=== PATIENT | male | born 1975 | race Caucasian/White ===

== ENCOUNTER 2017-06-25 12:38 | Observation (INO) | payer OTHER ==
[2017-06-25] MEDS ORDERED: ASPIRIN 81 MG PO STA (13:15)
[2017-06-25] MEDS ORDERED: NITROGLYCERIN OINT 1 INCH/GM PACKET TOPICAL STA (13:15)
--- NOTE | 2017-06-25 13:18 | ED ---
General Adult HPI - General Chief complaint: Chest Pain Stated complaint: Chest Pain Time Seen by Provider: 06/25/17 13:10 Source: patient, RN notes reviewed Mode of arrival: wheelchair Limitations: no limitations - History of Present Illness Initial comments: Patient is a pleasant 42-year-old male presenting to the emergency Department with chest discomfort. Patient had some symptoms around 4:30 this morning that resolved. Symptoms returned a couple hours later. Patient has burning in his chest with radiation to the left arm. Symptoms were more severe earlier however are mild at this time. Patient did have some nausea. No shortness of breath. Patient feels fatigued. Patient has had some similar symptoms previously however has not seen the physician regarding that. - Related Data Home Medications Medication Instructions Recorded Confirmed No Known Home Medications [No 06/25/17 06/25/17 Known Home Medications] Allergies Allergy/AdvReac Type Severity Reaction Status Date / Time No Known Allergies Allergy Verified 06/25/17 13:07 Review of Systems ROS Statement: Those systems with pertinent positive or pertinent negative responses have been documented in the HPI. ROS Other: All systems not noted in ROS Statement are negative. Constitutional: Denies: fever Eyes: Denies: eye pain ENT: Denies: ear pain Respiratory: Denies: cough Cardiovascular: Reports: chest pain Endocrine: Reports: fatigue Gastrointestinal: Reports: nausea Genitourinary: Denies: dysuria Musculoskeletal: Denies: back pain Skin: Denies: rash Neurological: Denies: weakness Past Medical History Past Medical History: Chest Pain / Angina History of Any Multi-Drug Resistant Organisms: None Reported Past Surgical History: Back Surgery, Heart Catheterization Additional Past Surgical History / Comment(s): bernardo knee surgery neck surg Past Psychological History: Anxiety, Depression Smoking Status: Current every day smoker Past Alcohol Use History: Occasional Past Drug Use History: None Reported General Exam Limitations: no limitations General appearance: alert, in no apparent distress, obese Head exam: Present: atraumatic Eye exam: Present: normal appearance, PERRL ENT exam: Present: normal oropharynx Neck exam: Present: normal inspection Respiratory exam: Present: wheezes (Mild expiratory wheeze.). Absent: chest wall tenderness Cardiovascular Exam: Present: regular rate, normal rhythm Expanded Peripheral pulses: 2+: Radial (R), Radial (L), Dorsalis Pedis (R), Dorsalis Pedis (L) GI/Abdominal exam: Present: soft. Absent: tenderness Extremities exam: Present: normal inspection. Absent: pedal edema, calf tenderness Neurological exam: Present: alert Psychiatric exam: Present: normal affect, normal mood Skin exam: Present: normal color Course Vital Signs 06/25/17 06/25/17 06/25/17 12:43 13:17 13:30 Temperature 97.4 F L Pulse Rate 66 70 Pulse Rate [ 57 L Thoracic Surgeon ] Respiratory 16 20 20 Rate Blood Pressure 145/90 116/66 O2 Sat by Pulse 98 98 Oximetry EKG Findings - EKG Comments: EKG Findings:: Sinus bradycardia 58. NV 168. QRS 112. QT or 18. QTC 410. Left axis. Incomplete left bundle-branch block. No acute ST change. Q wave in leads V1 and V2. Medical Decision Making - Medical Decision Making Patient reevaluated and resting comfortably in bed. Patient feels improvement with nitroglycerin. Patient and family updated on results and plan. Case was discussed in detail with Dr. Siddiqi, who will admit for hospital call. - Lab Data Result diagrams: 06/25/17 13:00 06/25/17 13:00 Lab Results 06/25/17 06/25/17 06/25/17 Range/Units 13:00 13:00 13:00 WBC 8.6 (3.8-10.6) k/uL RBC 4.87 (4.30-5.90) m/uL Hgb 14.6 (13.0-17.5) gm/dL Hct 43.9 (39.0-53.0) % MCV 90.3 (80.0-100.0) fL MCH 30.0 (25.0-35.0) pg MCHC 33.2 (31.0-37.0) g/dL RDW 12.3 (11.5-15.5) % Plt Count 170 (150-450) k/uL Neutrophils % 60 % Lymphocytes % 29 % Monocytes % 6 % Eosinophils % 3 % Basophils % 0 % Neutrophils # 5.1 (1.3-7.7) k/uL Lymphocytes # 2.5 (1.0-4.8) k/uL Monocytes # 0.5 (0-1.0) k/uL Eosinophils # 0.3 (0-0.7) k/uL Basophils # 0.0 (0-0.2) k/uL PT (9.0-12.0) sec INR (<1.2) APTT (22.0-30.0) sec Sodium 138 (137-145) mmol/L Potassium 4.0 (3.5-5.1) mmol/L Chloride 105 (98-107) mmol/L Carbon Dioxide 23 (22-30) mmol/L Anion Gap 10 mmol/L BUN 18 (9-20) mg/dL Creatinine 0.90 (0.66-1.25) mg/dL Est GFR (MDRD) Af Amer >60 (>60 ml/min/1.73 sqM) Est GFR (MDRD) Non-Af >60 (>60 ml/min/1.73 sqM) Glucose 126 H (74-99) mg/dL Calcium 9.5 (8.4-10.2) mg/dL Magnesium 1.8 (1.6-2.3) mg/dL Total Bilirubin 1.0 (0.2-1.3) mg/dL AST 33 (17-59) U/L ALT 61 (21-72) U/L Alkaline Phosphatase 61 (38-126) U/L Total Creatine Kinase 469 H (55-170) U/L CK-MB (CK-2) 5.7 H* (0.0-2.4) ng/mL CK-MB (CK-2) Rel Index 1.2 Troponin I <0.012 (0.000-0.034) ng/mL Total Protein 6.4 (6.3-8.2) g/dL Albumin 3.9 (3.5-5.0) g/dL 06/25/17 Range/Units 13:00 WBC (3.8-10.6) k/uL RBC (4.30-5.90) m/uL Hgb (13.0-17.5) gm/dL Hct (39.0-53.0) % MCV (80.0-100.0) fL MCH (25.0-35.0) pg MCHC (31.0-37.0) g/dL RDW (11.5-15.5) % Plt Count (150-450) k/uL Neutrophils % % Lymphocytes % % Monocytes % % Eosinophils % % Basophils % % Neutrophils # (1.3-7.7) k/uL Lymphocytes # (1.0-4.8) k/uL Monocytes # (0-1.0) k/uL Eosinophils # (0-0.7) k/uL Basophils # (0-0.2) k/uL PT 10.0 (9.0-12.0) sec INR 1.0 (<1.2) APTT 23.3 (22.0-30.0) sec Sodium (137-145) mmol/L Potassium (3.5-5.1) mmol/L Chloride (98-107) mmol/L Carbon Dioxide (22-30) mmol/L Anion Gap mmol/L BUN (9-20) mg/dL Creatinine (0.66-1.25) mg/dL Est GFR (MDRD) Af Amer (>60 ml/min/1.73 sqM) Est GFR (MDRD) Non-Af (>60 ml/min/1.73 sqM) Glucose (74-99) mg/dL Calcium (8.4-10.2) mg/dL Magnesium (1.6-2.3) mg/dL Total Bilirubin (0.2-1.3) mg/dL AST (17-59) U/L ALT (21-72) U/L Alkaline Phosphatase (38-126) U/L Total Creatine Kinase (55-170) U/L CK-MB (CK-2) (0.0-2.4) ng/mL CK-MB (CK-2) Rel Index Troponin I (0.000-0.034) ng/mL Total Protein (6.3-8.2) g/dL Albumin (3.5-5.0) g/dL - Radiology Data Radiology results: image reviewed (Chest x-ray shows no acute process.) Disposition Clinical Impression: Unstable angina pectoris Disposition: ADMITTED IP TO THIS [facility] Referrals: None,Stated [Primary Care Provider] - 1-2 days Decision Time: 15:00
[2017-06-25 13:25] LABS: Basophils % (A) 0 %; CH 30.6; Eosinophils # (A) 0.3 k/uL (0-0.7); Eosinophils % (A) 3 %; HCT 43.9 % (39.0-53.0); HDW 2.42; HGB 14.6 gm/dL (13.0-17.5); Luc # (Auto) 0.21; Luc % (Auto) 2; Lymphocytes # (A) 2.5 k/uL (1.0-4.8); Lymphocytes % (A) 29 %; MCHC 33.2 g/dL (31.0-37.0); MCV 90.3 fL (80.0-100.0); Mean Platelet Volume 8.9; Monocytes # (A) 0.5 k/uL (0-1.0); Monocytes % (A) 6 %; Neutrophils # (A) 5.1 k/uL (1.3-7.7); Neutrophils % (A) 60 %; RBC 4.87 m/uL (4.30-5.90); RDW 12.3 % (11.5-15.5); WBC 8.6 k/uL (3.8-10.6); WBC (Perox) 8.59
[2017-06-25 13:35] LABS: ALT 61 U/L (21-72); AST 33 U/L (17-59); Alkaline Phosphatase 61 U/L (38-126); Anion Gap 10 mmol/L; Blood Urea Nitrogen 18 mg/dL (9-20); Calcium 9.5 mg/dL (8.4-10.2); Carbon Dioxide 23 mmol/L (22-30); Chloride 105 mmol/L (98-107); Glucose 126 mg/dL (74-99); Magnesium 1.8 mg/dL (1.6-2.3); Non-African American GFR(MDRD) >60 (>60 ml/min/1.73 sqM); Sodium 138 mmol/L (137-145); Total Protein 6.4 g/dL (6.3-8.2)
[2017-06-25 13:44] LABS: Partial Thromboplastin Time 23.3 sec (22.0-30.0)
--- NOTE | 2017-06-25 13:46 | XR ---
EXAMINATION TYPE: XR chest 2V DATE OF EXAM: 06/25/2017 CLINICAL HISTORY: Chest pain TECHNIQUE: Frontal and lateral views of the chest are obtained. COMPARISON: None FINDINGS: There is no focal air space opacity, pleural effusion, or pneumothorax seen. The cardiac silhouette size is within normal limits. The osseous structures are intact. IMPRESSION: No acute cardiopulmonary process.
[2017-06-25 13:48] LABS: Creatine Kinase 469 U/L (55-170)
[2017-06-25 14:00] LABS: Troponin I <0.012 ng/mL (0.000-0.034)
[2017-06-25 14:15] LABS: Creatine Kinase MB 5.7 ng/mL (0.0-2.4)
[2017-06-25] MEDS ORDERED: HEPARIN SODIUM,PORCINE/D5W PMX 25,000 UNIT in DEXTROSE/WATER 1 500ML.BAG IV SCH (15:00)
[2017-06-25] MEDS ORDERED: NITROGLYCERIN SL TABS 0.4 MG TAB SUBLINGUAL PRN (15:00)
[2017-06-25] MEDS ORDERED: HEPARIN SODIUM,PORCINE 5,000 UNIT/ML 1 ML VIAL IV ONE (15:00)
[2017-06-25] MEDS ORDERED: SODIUM CHLORIDE 0.9% 500 ML IV SCH (15:15)
[2017-06-25 16:01] VITALS: BMI 47.3
--- NOTE | 2017-06-25 17:38 | P.HPIM ---
History of Present Illness H&P Date: 06/25/17 Chief Complaint: left sided chest pain 41 year old male with no significant past medical history. Presented due to sudden onset chest pain of atypical features, patient describes waking up from sleep at 4:30 am with intense left sided chest pain radiating to left arm, intense 10/10 in severity , sharp in nature associated with nausea but no vomiting, no heart racing, and no active sweating, but he was drenched with sweat from sleeping (normal to him). He rested in the bed and pain was resolved on its own. 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 However, his concerned insisted on getting it checked for which he decided to come to the hospital. He reports remote similar events (not exactly sure of details) however he recalls having a left heart cath but did not require any intervention ( but recalls being told that his heart is not beating fully or just slow , he is not sure) He does not take any medications, however he admits to smoking cigarettes. At the ED, he had another episode that was resolved with nitro. otherwise patient labs work and EKG are unremarkable patient is currently chest pain free and very comfortable, patient does not take aspirin at home . He reports being active swimming and biking with no exertional dyspnea or chest pain at bed side, all questions answered. 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, and he named his as surrogate decision maker Review of Systems Constitutional: Patient denies fever, denies chills, Reports night sweating, denies significant weight changes Eyes: Patient denies visual changes, denies eye pain ENT: Patient denies ear pain, denies rhinorrhea, denies sore throat Cardiovascular: Patient denies exertional dyspnea, denies peripheral leg edema, denies orthopnea, denies paroxysmal nocturnal dyspnea Respiratory:Patient denies cough, denies wheezing, denies shortness of breath Gastrointestinal: Patient denies diarrhea, denies constipation, denies nausea , denies vomiting, denies abdominal pain Genitourinary: Patient denies dysuria, denies hematuria, denies changes in urinary habits, denies genital lesions Musculoskeletal: Patient denies muscle pain, denies joint pain Psychiatric: Patient denies changes in mood or memory, denies suicidal ideation, denies anxiety Endocrine: Patient denies heat intolerance, denies cold intolerance, denies excessive thirst, denies polyuria Neurological: Patient denies focal neurologic deficits, denies weakness, denies numbness, denies tingling Hem/Lymphatic: Patient denies bleeding tendency, denies bruising, denies swollen lymph glands Allergic/Immun: Patient denies recent allergic reactions Skin: Patient denies rashes, denies pruritis, denies ulcers Past Medical History Past Medical History: Chest Pain / Angina Additional Past Medical History / Comment(s): diverticulitis, kidney stone History of Any Multi-Drug Resistant Organisms: None Reported Past Surgical History: Heart Catheterization Additional Past Surgical History / Comment(s): bernardo knee surgery, neck surg Past Psychological History: Anxiety, Depression Smoking Status: Current every day smoker Past Alcohol Use History: Occasional Past Drug Use History: Cocaine, Marijuana, Methamphetamine Additional Drug Use History / Comment(s): admits to drugs in the past remotely , but nothing recent - Past Family History family Family Medical History: Cancer, Coronary Artery Disease (CAD), CVA/TIA Medications and Allergies Home Medications and Allergies Comment(s): none Home Medications Medication Instructions Recorded Confirmed Type No Known Home Medications [No 06/25/17 06/25/17 History Known Home Medications] Allergies Allergy/AdvReac Type Severity Reaction Status Date / Time No Known Allergies Allergy Verified 06/25/17 13:07 Physical Exam Vitals: Vital Signs Temp Pulse Pulse Pulse Resp BP BP 06/25/17 15:59 97.6 F 53 L 18 119/62 06/25/17 15:31 98.0 F 56 L 20 118/50 06/25/17 14:30 50 L 18 108/62 06/25/17 13:30 70 20 116/66 06/25/17 13:17 57 L 20 06/25/17 12:43 97.4 F L 66 16 145/90 Pulse Ox 06/25/17 15:59 98 06/25/17 15:31 99 06/25/17 14:30 99 06/25/17 13:30 98 06/25/17 13:17 06/25/17 12:43 98 Intake and Output 06/25/17 06/25/17 06/25/17 06:59 14:59 22:59 Intake Total 100 Balance 100 Intake: Oral 100 Other: Voiding Method Toilet Weight 181.437 kg 186.3 kg Patient Weight 06/26/17 06:59 Weight 186.3 kg Constitutional: No acute distress, conversant, pleasant, obese Eyes: Anicteric sclerae, moist conjunctiva, no lid-lag Pupils equal round reactive to light ENMT: NC/AT Oropharynx clear, no erythema, exudates Neck: Supple, FROM, no masses, or JVD No carotid bruits No thyromegaly Lungs: Clear to auscultation Clear to percussion Normal respiratory effort, no accessory muscle use Cardiovascular: Heart regular in rate and rhythm, No murmurs, gallops, or rubs No peripheral edema Abdominal: Soft Nontender, no guarding, rebound or rigidity Abdomen moving with respiration Normoactive bowel sounds No hepatomegaly, No splenomegaly No palpable mass No abdominal wall hernia noted Skin: Normal temperature, tone, texture, turgor No induration No subcutaneous nodules No rash, lesions No ulcers Extremities: No digital cyanosis No clubbing Pedal pulses intact and symmetrical Radial pulses intact and symmetrical No calf tenderness Psychiatric: Alert and oriented to person, place and time Appropriate affect fair judgment Neuro Muscles Strength 5/5 in all 4 extremities Sensation to light touch grossly present throughout Cranial nerves II-XII grossly intact No focal sensory deficits Lymphatics: no palpable cervical or supraclavicular , or inguinal lymph nodes Results CBC & Chem 7: 06/25/17 13:00 06/25/17 13:00 Labs: Abnormal Lab Results - Last 24 Hours (Table) 06/25/17 06/25/17 Range/Units 13:00 13:00 Glucose 126 H (74-99) mg/dL Total Creatine Kinase 469 H (55-170) U/L CK-MB (CK-2) 5.7 H* (0.0-2.4) ng/mL Thrombosis Risk Factor Assmnt - Choose All That Apply Any of the Below Risk Factors Present?: Yes Each Factor Represents 1 point: Age 41-60 years, Obesity (BMI >25) Other Risk Factors: No Thrombosis Risk Factor Assessment Total Risk Factor Score: 2 Thrombosis Risk Factor Assessment Level: Low Risk Assessment and Plan Assessment: 41 year old male with no significant past medical history, presents due to acute onset chest pain with atypical features, however patient has risk factors of smoking and obesity. Admitted under observation for further workup (1) Chest pain Narrative/Plan: with atypical features, positive risk factors, r/o ACS EKG sinus bradycardia, and incomplete left bundle branch block Troponins wnl nitro PRN for chest pain IV morphine Oxygen PRN cardiology consult patient had negative left heart cath in the past but was told that his heart is beating slow or incomplete emptying he is not sure of results. possible need for a stress test in AM NPO after midnight BB not started due to bradycardia Current Visit: Yes Status: Acute Code(s): R07.9 - CHEST PAIN, UNSPECIFIED SNOMED Code(s): 69365867 (2) Morbid obesity with BMI of 45.0-49.9, adult Narrative/Plan: counseled for life style modification and weight loss Current Visit: Yes Status: Acute Code(s): E66.01 - MORBID (SEVERE) OBESITY DUE TO EXCESS CALORIES; Z68.42 - BODY MASS INDEX (BMI) 45.0-49.9, ADULT SNOMED Code(s): 322028335 (3) DVT prophylaxis Narrative/Plan: heparin sc Current Visit: Yes Status: Acute Code(s): VCF4932 - SNOMED Code(s): 042553266 (4) Tobacco abuse Narrative/Plan: counseled to quit smoking NRT will not be utilized at this point until ACS ruled out Current Visit: Yes Status: Acute Code(s): Z72.0 - TOBACCO USE SNOMED Code( s): 928774287 Plan: Surrogate decision-maker: Patients CODE STATUS:Full DVT prophylaxis: Heparin sc Discussed with: Patient, ER, RN, family Anticipated discharge: [address]: home A total of 45 minutes were spent on the care of this complex patient more than 50% of the time was spent in counseling and care coordination.
[2017-06-25] MEDS ORDERED: MORPHINE SULFATE 10 MG/ML SYRINGE IVP PRN (17:39)
[2017-06-25] MEDS ORDERED: ACETAMINOPHEN TAB 325 MG TAB PO PRN (19:08)
[2017-06-25] MEDS: NITROGLYCERIN OINT 1 INCH/GM PACKET TOPICAL SCH ×2 (19:14→23:43)
[2017-06-25 21:46] LABS: Creatine Kinase 311 U/L (55-170)
[2017-06-25] MEDS: HEPARIN SODIUM,PORCINE 5,000 UNIT/ML 1 ML VIAL IV PRN (21:55)
[2017-06-25 21:57] LABS: Troponin I <0.012 ng/mL (0.000-0.034)
[2017-06-25 22:00] LABS: Creatine Kinase MB 3.9 ng/mL (0.0-2.4)
[2017-06-26 02:29] LABS: Creatine Kinase 259 U/L (55-170)
[2017-06-26 02:41] LABS: Troponin I <0.012 ng/mL (0.000-0.034)
[2017-06-26 02:51] LABS: Creatine Kinase MB 3.7 ng/mL (0.0-2.4)
[2017-06-26] MEDS: NITROGLYCERIN OINT 1 INCH/GM PACKET TOPICAL SCH ×2 (03:37→12:00)
[2017-06-26 05:14] LABS: Anion Gap 8 mmol/L; Blood Urea Nitrogen 16 mg/dL (9-20); Calcium 9.4 mg/dL (8.4-10.2); Carbon Dioxide 26 mmol/L (22-30); Chloride 104 mmol/L (98-107); Cholesterol 166 mg/dL (<200); Glucose 116 mg/dL (74-99); HDL Cholesterol 36 mg/dL (40-60); Non-African American GFR(MDRD) >60 (>60 ml/min/1.73 sqM); Potassium 4.6 mmol/L (3.5-5.1); Sodium 138 mmol/L (137-145)
[2017-06-26] MEDS: HEPARIN SODIUM,PORCINE 5,000 UNIT/ML 1 ML VIAL IV PRN (05:21)
[2017-06-26] MEDS ORDERED: ASPIRIN 325 MG TAB PO SCH (09:00)
[2017-06-26] MEDS ORDERED: DOBUTamine DRIP for NUC MED 500 MG in DEXTROSE/WATER 1 250ML.BAG IV ONE (10:52)
[2017-06-26] MEDS ORDERED: ATROPINE SULFATE 0.1 MG/ML 10ML SYRINGE ONE (11:43)
--- NOTE | 2017-06-26 11:48 | ECHOF ---
Referral Reason:Chest pain MEASUREMENTS -------- HEIGHT: 195.6 cm WEIGHT: 186.0 kg BP: 136/86 RVIDd: 3.3 cm (< 3.3) IVSd: 1.6 cm (0.6 - 1.1) LVIDd: 5.0 cm (3.9 - 5.3) LVPWd: 1.5 cm (0.6 - 1.1) IVSs: 1.9 cm LVIDs: 3.2 cm LVPWs: 1.9 cm LA Diam: 3.3 cm (2.7 - 3.8) LAESV Index (A-L): 11.00 ml/m Ao Diam: 4.1 cm (2.0 - 3.7) AV Cusp: 2.7 cm (1.5 - 2.6) MV EXCURSION: 20.130 mm (> 18.000) MV EF SLOPE: 111 mm/s (70 - 150) EPSS: 0.3 cm MV E Gary: 1.03 m/s MV DecT: 189 ms MV A Gary: 0.52 m/s MV E/A Ratio: 2.00 RAP: 5.00 mmHg RVSP: 23.88 mmHg FINDINGS -------- This was a technically difficult study with suboptimal views. The left ventricular size is normal. There is moderate concentric left ventricular hypertrophy. O verall left ventricular systolic function is low-normal with, an EF between 50 - 55 %. The right ventricle is mildly enlarged. Normal LA size by volume 22+/-6 ml/m2. The right atrium was not well visualized. 1.5mg of Definity was utilized for enhancement of images The aortic valve was not well visualized. The mitral valve is normal. Mild tricuspid regurgitation present. Right ventricular systolic pressure is normal at < 35 mmHg. The pulmonic valve was not well visualized. The aortic root is dilated measuring 4.1cm. IVC Not well visulized. There is no pericardial effusion. CONCLUSIONS -------- 1. This was a technically difficult study with suboptimal views. 2. The left ventricular size is normal. 3. There is moderate concentric left ventricular hypertrophy. 4. Overall left ventricular systolic function is low-normal with, an EF between 50 - 55 %. 5. The right ventricle is mildly enlarged. 6. Normal LA size by volume 22+/-6 ml/m2. 7. The right atrium was not well visualized. 8. 1.5mg of Definity was utilized for enhancement of images 9. The aortic valve was not well visualized. 10. The mitral valve is normal. 11. Mild tricuspid regurgitation present. 12. Right ventricular systolic pressure is normal at < 35 mmHg. 13. The pulmonic valve was not well visualized. 14. The aortic root is dilated measuring 4.1cm. 15. IVC Not well visulized. 16. There is no pericardial effusion. BOND CLERK: Nikkie Hicks RDCS
--- NOTE | 2017-06-26 12:02 | P.CRDCN ---
History of Present Illness Consult date: 06/26/17 History of present illness: This is a 41-year-old male past medical history significant for chronic tobacco use and morbid obesity. He also has significant family history for premature heart disease. He denies CAD and has never undergone coronary artery stenting. He did have a catheterization with Dr. Lares in 2006 which was negative for obstructive disease. We have been asked to see him in consultation for complaints of chest pressure. 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 He was woken up with chest tightness, shortness of breath, nausea and dizziness. He denies palpitations or vomiting. The pain lasted for a couple minutes and subsided on its own. 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 While he was working the nausea and dizziness persisted and he had another episode of mid-sternal/epigastric burning sensation that lasted approximately 10 min. At the time of my exam he is chest pain free. EKG reveals sinus mechanism with incomplete left bundle branch block. Chest xray negative for an acute cardiopulmonary process. Blood pressure 136/86 with heart rate 54. Cardiac enzymes negative x3. Cardiac risk factors include tobacco use, prior history of illicit drug use, family history and morbid obesity. Review of Systems CONSTITUTIONAL: Denies fever. Denies chills. EYES: Denies blurred vision. Denies vision changes. Denies eye pain. EARS, NOSE, MOUTH & THROAT: Denies headache. Denies sore throat. Denies ear pain. CARDIOVASCULAR: Complains of intermittent chest pain, resolved. Denies shortness of breath. Denies orthopnea. Denies PND. Denies palpitations. RESPIRATORY: Denies cough. GASTROINTESTINAL: Denies abdominal pain. Denies diarrhea. Denies constipation. Denies nausea. Denies vomitng. MUSCULOSKELETAL: Denies myalgias. INTEGUMENTARY: Denies pruitis. Denies rash. NEUROLOGIC: Denies numbness. Denies tingling. Denies weakness. PSYCHIATRIC: Denies anxiety. Denies depression. ENDOCRINE: Denies fatigue. Denies weight change. Denies polydipsia. Denies polyurina. GENITOURINARY: Denies burning, hematuria or urgency with micturation. HEMATOLOGIC: Denies history of anemia. Denies bleeding. Past Medical History Past Medical History: Chest Pain / Angina Additional Past Medical History / Comment(s): diverticulitis, kidney stone History of Any Multi-Drug Resistant Organisms: None Reported Past Surgical History: Heart Catheterization Additional Past Surgical History / Comment(s): bernardo knee surgery, neck surg Past Psychological History: Anxiety, Depression Smoking Status: Current every day smoker Past Alcohol Use History: Occasional Past Drug Use History: Cocaine, Marijuana, Methamphetamine Additional Drug Use History / Comment(s): admits to drugs in the past remotely , but nothing recent - Past Family History family Family Medical History: Cancer, Coronary Artery Disease (CAD), CVA/TIA Medications and Allergies Home Medications Medication Instructions Recorded Confirmed Type No Known Home Medications [No 06/25/17 06/25/17 History Known Home Medications] Allergies Allergy/AdvReac Type Severity Reaction Status Date / Time No Known Allergies Allergy Verified 06/25/17 13:07 Physical Exam Vitals: Vital Signs Temp Pulse Pulse Pulse Pulse Resp BP 06/26/17 07:27 97.4 F L 54 L 20 06/26/17 04:00 98.1 F 52 L 18 06/26/17 03:35 18 06/25/17 23:44 98.2 F 55 L 18 06/25/17 23:41 18 06/25/17 20:00 98 F 63 18 06/25/17 19:26 18 06/25/17 15:59 97.6 F 53 L 18 06/25/17 15:31 98.0 F 56 L 20 118/50 06/25/17 14:30 50 L 18 108/62 06/25/17 13:30 70 20 116/66 06/25/17 13:17 57 L 20 06/25/17 12:43 97.4 F L 66 16 145/90 BP Pulse Ox 06/26/17 07:27 136/86 97 06/26/17 04:00 133/67 98 06/26/17 03:35 06/25/17 23:44 126/70 94 L 06/25/17 23:41 06/25/17 20:00 123/74 94 L 06/25/17 19:26 06/25/17 15:59 119/62 98 06/25/17 15:31 99 06/25/17 14:30 99 06/25/17 13:30 98 06/25/17 13:17 06/25/17 12:43 98 Intake and Output 06/25/17 06/26/17 06/26/17 22:59 06:59 14:59 Intake Total 587.936 675.939 Output Total 100 Balance 587.936 675.939 -100 Intake: Intake, IV Titration 127.936 225.939 Amount Heparin Sodium,Porcine/ 127.936 225.939 D5w Pmx 25,000 unit In Dextrose/Water 1 500ml. bag @ 5.51 UNITS/KG/HR 19 .99 mls/hr IV .Q24H [facility] Rx#:[id number] Oral 460 450 Output: Urine 100 Other: Voiding Method Toilet Toilet Toilet # Voids 2 Weight 186.3 kg GENERAL: This is a 41-year-old male in no apparent distress at the time of my examination. Morbidly obese. HEENT: Head is atraumatic, normocephalic. Pupils are equal, round. Sclerae anicteric. Conjunctivae are clear. Mucous membranes of the mouth are moist. Neck is supple. There is no jugular venous distention. No carotid bruit is heard. LUNGS: Clear to auscultation no wheezes, rales or rhonchi. No chest wall tenderness is noted on palpation or with deep breathing. HEART: Regular rate and rhythm without murmurs, rubs or gallops. S1 and S2 heard. ABDOMEN: Soft, nontender. Bowel sounds are heard. No organomegaly noted. EXTREMITIES: 2+ peripheral pulses with no evidence of peripheral edema and no calf tenderness noted. NEUROLOGIC: Patient is awake, alert and oriented x3. Results 06/26/17 04:08 06/26/17 04:08 Cardiac Enzymes 06/25/17 06/25/17 06/25/17 Range/Units 13:00 13:00 20:44 AST 33 (17-59) U/L CK-MB (CK-2) 5.7 H* 3.9 H* (0.0-2.4) ng/mL Troponin I <0.012 <0.012 (0.000-0.034) ng/mL 06/26/17 Range/Units 01:33 AST (17-59) U/L CK-MB (CK-2) 3.7 H* (0.0-2.4) ng/mL Troponin I <0.012 (0.000-0.034) ng/mL Coagulation 06/25/17 06/25/17 06/26/17 Range/Units 13:00 20:44 04:08 PT 10.0 (9.0-12.0) sec APTT 23.3 24.0 25.7 (22.0-30.0) sec Lipids 06/26/17 Range/Units 04:08 Triglycerides 174 H (<150) mg/dL Cholesterol 166 (<200) mg/dL HDL Cholesterol 36 L (40-60) mg/dL CBC 06/25/17 06/26/17 Range/Units 13:00 04:08 WBC 8.6 (3.8-10.6) k/uL RBC 4.87 (4.30-5.90) m/uL Hgb 14.6 (13.0-17.5) gm/dL Hct 43.9 (39.0-53.0) % Plt Count 170 172 (150-450) k/uL Comprehensive Metabolic Panel 06/25/17 06/26/17 Range/Units 13:00 04:08 Sodium 138 138 (137-145) mmol/L Potassium 4.0 4.6 (3.5-5.1) mmol/L Chloride 105 104 (98-107) mmol/L Carbon Dioxide 23 26 (22-30) mmol/L BUN 18 16 (9-20) mg/dL Creatinine 0.90 1.00 (0.66-1.25) mg/dL Glucose 126 H 116 H (74-99) mg/dL Calcium 9.5 9.4 (8.4-10.2) mg/dL AST 33 (17-59) U/L ALT 61 (21-72) U/L Alkaline Phosphatase 61 (38-126) U/L Total Protein 6.4 (6.3-8.2) g/dL Albumin 3.9 (3.5-5.0) g/dL Current Medications Generic Name Dose Route Start Last Admin Trade Name Freq PRN Reason Stop Dose Admin Acetaminophen 650 mg 06/25/17 19:08 06/25/17 19:23 Tylenol Tab PO 650 mg Q4HR PRN Administration Fever and/ or Pain Aspirin 325 mg 06/26/17 09:00 Aspirin PO DAILY BRUCE Heparin Sodium (Porcine) 0 unit 06/25/17 15:00 06/26/17 05:21 Heparin IV 4,000 unit Q6HR PRN Administration Low PTT Protocol Heparin Sodium/Dextrose 25,000 500 mls @ 19.99 mls/hr 06/25/17 15:00 05:11 unit/ IV Solution IV 11.51 units/kg/hr .Q24H BRUCE 41.76 mls/hr Protocol Titration 5.51 UNITS/KG/HR Sodium Chloride 500 mls @ 20 mls/hr 06/25/17 15:15 06/25/17 15:27 Saline 0.9% IV 20 mls/hr .Q24H BRUCE Administration Morphine Sulfate 4 mg 06/25/17 17:39 Morphine Sulfate (Inj) IVP Q4HR PRN Pain Nitroglycerin 1 inch 06/25/17 18:00 06/26/17 03:37 Nitro-Bid Oint TOPICAL Not Given Q6HR [facility] Nitroglycerin 0.4 mg 06/25/17 15:00 Nitrostat SUBLINGUAL Q5M PRN Chest Pain Intake and Output 06/25/17 06/26/17 06/26/17 22:59 06:59 14:59 Intake Total 587.936 675.939 Output Total 100 Balance 587.936 675.939 -100 Intake: Intake, IV Titration 127.936 225.939 Amount Heparin Sodium,Porcine/ 127.936 225.939 D5w Pmx 25,000 unit In Dextrose/Water 1 500ml. bag @ 5.51 UNITS/KG/HR 19 .99 mls/hr IV .Q24H [facility] Rx#:[id number] Oral 460 450 Output: Urine 100 Other: Voiding Method Toilet Toilet Toilet # Voids 2 Weight 186.3 kg 06/26/17 04:08 06/26/17 04:08 Assessment and Plan Assessment: ASSESSMENT 1. Chest pain, atypical 2. Chronic tobacco abuse 3. History of illicit drug use, cocaine and methamphetamine 4. Morbid obesity PLAN Obtain 2-D echocardiogram and Doppler study to assess cardiac structure and function. Perform dobutamine stress echocardiogram to rule out ischemia. Lifestyle modifications discussed at length to include weight loss, increased activity and smoking cessation. Patient states he has not used illicit drugs in some time. If above diagnostic testing is negative he can be discharged home and follow upwith Dr. Darling in 2-3 weeks. Nurse Practitioner note has been reviewed, I agree with a documented findings and plan of care. Patient was seen and examined.
[2017-06-26 12:25] VITALS: TEMP 97.5
--- NOTE | 2017-06-26 12:59 | ECHOS ---
STRESS ECHOCARDIOGRAM INDICATIONS: CP MEDICATIONS:: BASELINE HEART RATE: 56 BASELINE BLOOD PRESSURE: 124/65 MAXIMUM HEART RATE: 137 MAXIMUM BLOOD PRESSURE: 216/38 85% MPHR: 151 100% MPHR: 178 METS: MAXIMUM STAGE REACHED: 5 TOTAL EXERCISE TIME: 12:30 CLINICAL INFORMATION: Dobutamine Cardiolite study was performed. Peak heart rate of 137 was achieved, which is equivalent to 80% of age predicted heart rate. Maximum blood pressure of 216/38 mmHg was noted. The resting EKG shows normal sinus rhythm with sinus bradycardia and intraventricular conduction delay. No ST-segment depression suggestive of ischemia was noted. The baseline echocardiographic images reveals normal left ventricular chamber size with normal left ventricular systolic function. At the peak dose of dobutamine infusion normal increase in the wall thickness and contractility is noted. FINAL IMPRESSION: 1. This dobutamine stress echocardiographic study is negative for stress-induced ischemia. No dysrhythmias are noted. 2. EKG portion of the stress test is not suggestive of ischemia. MMODL / IJN: [id number] /
[2017-06-26 15:41] VITALS: BP 122/82; PULSE 60; RESP 20
--- NOTE | 2017-06-26 15:48 | P.DS ---
Providers Date of admission: 06/25/17 15:00 Expected date of discharge: 06/26/17 Attending physician: Santhosh Siddiqi MD Consults: 06/25/17 15:00 Consult Physician Urgent Consulting Provider: Veto Monroy Consult Reason/Comments: ua Do you want consulting provider notified?: Yes Primary care physician: Stated None - Discharge Diagnosis(es) (1) Chest pain Current Visit: Yes Status: Resolved (2) Morbid obesity with BMI of 45.0-49.9, adult Current Visit: Yes Status: Acute (3) DVT prophylaxis Current Visit: Yes Status: Acute (4) Tobacco abuse Current Visit: Yes Status: Acute Hospital Course: 41-year-old male with no significant past medical history. Presented due to sudden onset chest pain with atypical features however it was recurrent for which she got concerned and decided to come to the hospital. Patient was admitted under observation a stress test performed and cardiology evaluated the patient. Stress test came back negative cardiology cleared the patient for discharge. Left-sided chest pain has resolved this most likely due to overexertion resulting in musculoskeletal type of pain Patient reports having left heart cath in the past when he had similar chest pain related to drug abuse years ago. No intervention was required at that time Patient seen and examined on day of discharge Patient reports no further episodes of chest pain overnight except for one event while having the stress test done. Currently feels comfortable and eager to go home. Constitutional: vital signs stable, Not in acute distress, pleasant, conversant Lungs: Clear to auscultation bilaterally, clear to percussion, normal respiratory effort Cardiovascular: Regular rate and rhythm, no murmurs, no gallops, no rubs, no peripheral edema Gastrointestinal: Soft, no tenderness to palpation, bowel sounds positive, no abdominal wall hernias Extremities peripheral pulses palpable and equal over bilateral radial arteries and dorsalis pedis artery, no calf muscle tenderness Psych: Alert, oriented to place, person and time Patient will be discharged home Counseled for weight loss and lifestyle modification No new medications upon discharge Patient discharged in stable condition Counseled to quit smoking Pertinent Studies: Dobutamine Stress test which resulted to be negative for any stress-induced ischemia Patient Condition at Discharge: Stable Plan - Discharge Summary Discharge Rx Participant: No New Discharge Prescriptions: Continue No Known Home Medications [No Known Home Medications] Discharge Medication List No Known Home Medications [No Known Home Medications] 06/25/17 [History] Follow up Appointment(s)/Referral(s): None,Stated [Primary Care Provider] - 1-2 days Black Darling MD [STAFF PHYSICIAN] - 2 Weeks Patient Instructions/Handouts: Chest Pain (GEN) Activity/Diet/Wound Care/Special Instructions: diet as tolerated, life style modification and weight loss Discharge Disposition: HOME SELF-CARE
== END 2017-06-26 16:19 | disposition home or self-care (01) ==
LOC: EC 12:38 → 3OBS 15:00
PROVIDERS: ADMIT Internal Medicine; ATTEND Internal Medicine
DX: R07.89 Other chest pain (principal); R11.0 Nausea; R42 Dizziness and giddiness; R53.83 Other fatigue; Z68.42 Body mass index [BMI] 45.0-49.9, adult; E66.01 Morbid (severe) obesity due to excess calories; F17.210 Nicotine dependence, cigarettes, uncomplicated; F41.9 Anxiety disorder, unspecified; F32.9 Major depressive disorder, single episode, unspecified; Z82.49 Family history of ischemic heart disease and other diseases of the circulatory system
CPT/HCPCS: 99285; 96376 ×2; 96365; 96366 ×2; 36415; 93005; 93017; 80061; 80053; 80048; 82550 ×2; 82553 ×2; 83735; 84484 ×2; 85025; 85049; 85610; 85730 ×2; 71020; G0378 ×2; C8928; C8929; J1250; J1644 ×3; J0461; Q9957; 93306; 93350

== ENCOUNTER 2017-08-02 17:40 | Emergency (ER) | payer OTHER ==
[2017-08-02] MEDS ORDERED: KETOROLAC 60 MG/2 ML VIAL IVP STA (18:06)
--- NOTE | 2017-08-02 18:09 | ED ---
General Adult HPI - General Chief complaint: Chest Pain Stated complaint: Chest pain Time Seen by Provider: 08/02/17 17:40 Source: patient, RN notes reviewed Mode of arrival: wheelchair Limitations: no limitations - History of Present Illness Initial comments: This is a 41-year-old male who presents emergency department with past mental history significant for smoking. Patient states had a new job for the last 2 weeks and is experiencing some pain in the center of his chest and both shoulders. 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 Patient states he was at work today about an hour when he started having chest pain and it was worse with movement deep breathing or coughing. Patient states pressing on the anterior chest at the sternum increases his pain as well. Patient denies any nausea or vomiting patient denies any abdominal pain. Patient denies any diaphoresis. Patient denies diabetes hypertension or high cholesterol. Patient states she recently had a stress test that was normal. Patient states that he rests in bed without taking any deep breathing or moving he has no chest pain. - Related Data Home Medications Medication Instructions Recorded Confirmed Ibuprofen [Motrin] 800 mg PO TID PRN 08/02/17 08/02/17 Allergies Allergy/AdvReac Type Severity Reaction Status Date / Time No Known Allergies Allergy Verified 08/02/17 18:26 Review of Systems ROS Statement: Those systems with pertinent positive or pertinent negative responses have been documented in the HPI. ROS Other: All systems not noted in ROS Statement are negative. Past Medical History Past Medical History: Chest Pain / Angina Additional Past Medical History / Comment(s): diverticulitis, kidney stone History of Any Multi-Drug Resistant Organisms: None Reported Past Surgical History: Heart Catheterization Additional Past Surgical History / Comment(s): bernardo knee surgery, neck surg Past Psychological History: Anxiety, Depression Smoking Status: Current every day smoker Past Alcohol Use History: Rare Past Drug Use History: None Reported - Past Family History family Family Medical History: Cancer, Coronary Artery Disease (CAD), CVA/TIA General Exam - General Exam Comments Initial Comments: GENERAL: Patient is well-developed and well-nourished. Patient is nontoxic and well- hydrated and is in mild distress. ENT: Neck is soft and supple. No significant lymphadenopathy is noted. Oropharynx is clear. Moist mucous membranes. Neck has full range of motion without eliciting any pain. EYES: The sclera were anicteric and conjunctiva were pink and moist. Extraocular movements were intact and pupils were equal round and reactive to light. Eyelids were unremarkable. PULMONARY: Unlabored respirations. Good breath sounds bilaterally. No audible rales rhonchi or wheezing was noted. CARDIOVASCULAR: There is a regular rate and rhythm without any murmurs gallops or rubs. Patient has tenderness to palpation of the distal sternum ABDOMEN: Soft and nontender with normal bowel sounds. No palpable organomegaly was noted. There is no palpable pulsatile mass. SKIN: Skin is clear with no lesions or rashes and otherwise unremarkable. NEUROLOGIC: Patient is alert and oriented x3. Cranial nerves II through XII are grossly intact. Motor and sensory are also intact. Normal speech, volume and content. Symmetrical smile. MUSCULOSKELETAL: Normal extremities with adequate strength and full range of motion. No lower extremity swelling or edema. No calf tenderness. LYMPHATICS: No significant lymphadenopathy is noted PSYCHIATRIC: Normal psychiatric evaluation. 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 Patient's EKG shows no ST segment elevation or depression. Chest x-ray shows no acute abnormality. I will begin spoke with the patient he stated that the Toradol seemed to help his pain can simply. However on palpation he was [employer]. Patient did not want to stay in the hospital he stated he would follow up with cardiology. - Lab Data Result diagrams: 08/02/17 18:17 08/02/17 18:17 Lab Results 08/02/17 08/02/17 08/02/17 Range/Units 18:17 18:17 18:17 WBC 6.2 (3.8-10.6) k/uL RBC 4.51 (4.30-5.90) m/uL Hgb 13.5 (13.0-17.5) gm/dL Hct 39.8 (39.0-53.0) % MCV 88.1 (80.0-100.0) fL MCH 30.0 (25.0-35.0) pg MCHC 34.0 (31.0-37.0) g/dL RDW 13.9 (11.5-15.5) % Plt Count 147 L (150-450) k/uL Neutrophils % 51 % Lymphocytes % 34 % Monocytes % 8 % Eosinophils % 2 % Basophils % 1 % Neutrophils # 3.1 (1.3-7.7) k/uL Lymphocytes # 2.1 (1.0-4.8) k/uL Monocytes # 0.5 (0-1.0) k/uL Eosinophils # 0.1 (0-0.7) k/uL Basophils # 0.1 (0-0.2) k/uL PT (9.0-12.0) sec INR (<1.2) APTT (22.0-30.0) sec Sodium 140 (137-145) mmol/L Potassium 4.4 (3.5-5.1) mmol/L Chloride 107 (98-107) mmol/L Carbon Dioxide 24 (22-30) mmol/L Anion Gap 9 mmol/L BUN 17 (9-20) mg/dL Creatinine 1.00 (0.66-1.25) mg/dL Est GFR (MDRD) Af Amer >60 (>60 ml/min/1.73 sqM) Est GFR (MDRD) Non-Af >60 (>60 ml/min/1.73 sqM) Glucose 92 (74-99) mg/dL Calcium 9.4 (8.4-10.2) mg/dL Magnesium 1.9 (1.6-2.3) mg/dL Total Bilirubin 0.7 (0.2-1.3) mg/dL AST 37 (17-59) U/L ALT 66 (21-72) U/L Alkaline Phosphatase 68 (38-126) U/L Total Creatine Kinase 513 H (55-170) U/L CK-MB (CK-2) 6.5 H* (0.0-2.4) ng/mL CK-MB (CK-2) Rel Index 1.3 Troponin I <0.012 (0.000-0.034) ng/mL Total Protein 6.8 (6.3-8.2) g/dL Albumin 4.1 (3.5-5.0) g/dL 08/02/17 Range/Units 18:17 WBC (3.8-10.6) k/uL RBC (4.30-5.90) m/uL Hgb (13.0-17.5) gm/dL Hct (39.0-53.0) % MCV (80.0-100.0) fL MCH (25.0-35.0) pg MCHC (31.0-37.0) g/dL RDW (11.5-15.5) % Plt Count (150-450) k/uL Neutrophils % % Lymphocytes % % Monocytes % % Eosinophils % % Basophils % % Neutrophils # (1.3-7.7) k/uL Lymphocytes # (1.0-4.8) k/uL Monocytes # (0-1.0) k/uL Eosinophils # (0-0.7) k/uL Basophils # (0-0.2) k/uL PT 10.0 (9.0-12.0) sec INR 1.0 (<1.2) APTT 25.0 (22.0-30.0) sec Sodium (137-145) mmol/L Potassium (3.5-5.1) mmol/L Chloride (98-107) mmol/L Carbon Dioxide (22-30) mmol/L Anion Gap mmol/L BUN (9-20) mg/dL Creatinine (0.66-1.25) mg/dL Est GFR (MDRD) Af Amer (>60 ml/min/1.73 sqM) Est GFR (MDRD) Non-Af (>60 ml/min/1.73 sqM) Glucose (74-99) mg/dL Calcium (8.4-10.2) mg/dL Magnesium (1.6-2.3) mg/dL Total Bilirubin (0.2-1.3) mg/dL AST (17-59) U/L ALT (21-72) U/L Alkaline Phosphatase (38-126) U/L Total Creatine Kinase (55-170) U/L CK-MB (CK-2) (0.0-2.4) ng/mL CK-MB (CK-2) Rel Index Troponin I (0.000-0.034) ng/mL Total Protein (6.3-8.2) g/dL Albumin (3.5-5.0) g/dL Disposition Clinical Impression: Musculoskeletal chest pain Disposition: HOME SELF-CARE Condition: Good Instructions: Chest Pain (ED) Referrals: None,Stated [Primary Care Provider] - 1-2 days Time of Disposition: 19:58
[2017-08-02 18:34] LABS: Basophils # (A) 0.1 k/uL (0-0.2); Basophils % (A) 1 %; CH 29.5; CHCM 33.7; Eosinophils # (A) 0.1 k/uL (0-0.7); Eosinophils % (A) 2 %; HCT 39.8 % (39.0-53.0); HDW 2.61; HGB 13.5 gm/dL (13.0-17.5); Luc # (Auto) 0.21; Luc % (Auto) 3; Lymphocytes # (A) 2.1 k/uL (1.0-4.8); Lymphocytes % (A) 34 %; MCV 88.1 fL (80.0-100.0); Mean Platelet Volume 9.5; Monocytes # (A) 0.5 k/uL (0-1.0); Monocytes % (A) 8 %; Neutrophils # (A) 3.1 k/uL (1.3-7.7); Neutrophils % (A) 51 %; RBC 4.51 m/uL (4.30-5.90); RDW 13.9 % (11.5-15.5); WBC 6.2 k/uL (3.8-10.6); WBC (Perox) 6.08
[2017-08-02 18:38] LABS: ALT 66 U/L (21-72); AST 37 U/L (17-59); Alkaline Phosphatase 68 U/L (38-126); Anion Gap 9 mmol/L; Blood Urea Nitrogen 17 mg/dL (9-20); Calcium 9.4 mg/dL (8.4-10.2); Carbon Dioxide 24 mmol/L (22-30); Chloride 107 mmol/L (98-107); Glucose 92 mg/dL (74-99); Magnesium 1.9 mg/dL (1.6-2.3); Non-African American GFR(MDRD) >60 (>60 ml/min/1.73 sqM); Potassium 4.4 mmol/L (3.5-5.1); Sodium 140 mmol/L (137-145); Total Bilirubin 0.7 mg/dL (0.2-1.3); Total Protein 6.8 g/dL (6.3-8.2)
[2017-08-02 18:47] LABS: Creatine Kinase 513 U/L (55-170)
--- NOTE | 2017-08-02 18:57 | XR ---
EXAMINATION: XR chest 3V DATE AND TIME: 08/02/2017 6:46 PM ORDERING PROVIDER: Ephraim Canela MD CLINICAL INDICATION: Chest Pain TECHNIQUE: 2 PA views and a lateral view COMPARISON: 06/25/2017 DESCRIPTION: The lungs are clear. The pleural spaces are negative. The cardiac silhouette is not enlarged. The mediastinal and pleural silhouettes are unremarkable. The skeletal structures are intact without focal findings. The soft tissues are unremarkable. IMPRESSION: NO ACUTE PROCESS.
[2017-08-02 18:59] LABS: Troponin I <0.012 ng/mL (0.000-0.034)
[2017-08-02 19:03] LABS: Creatine Kinase MB 6.5 ng/mL (0.0-2.4)
[2017-08-02 20:18] VITALS: BP 135/68; PULSE 87; RESP 20; TEMP 97.5
== END 2017-08-02 20:17 | disposition home or self-care (01) ==
LOC: EC 17:40
DX: R07.89 Other chest pain (principal); F17.200 Nicotine dependence, unspecified, uncomplicated; Z95.818 Presence of other cardiac implants and grafts
CPT/HCPCS: 36415; 93005; 80053; 82550; 82553; 83735; 84484; 85025; 85610; 85730; 71020; 99285; 96374; J1885

== ENCOUNTER 2017-09-30 01:47 | Emergency (ER) | payer OTHER ==
[2017-09-30 02:02] VITALS: BP 144/84; PULSE 78; RESP 18; TEMP 98.3
--- NOTE | 2017-09-30 02:41 | ED ---
General Adult HPI - General Chief complaint: Skin/Abscess/Foreign Body Stated complaint: Wound on abdomen Time Seen by Provider: 09/30/17 02:15 Source: patient, RN notes reviewed Mode of arrival: ambulatory Limitations: no limitations - History of Present Illness Initial comments: 41-year-old male presents to the emergency department with a chief complaint of abscess to left abdomen. Patient states that he drained this and he has been having good drainage from the area. He was concerned due to the fact that the drainage was causing some redness around the area she thought that he should be he denies any fever or chills. He history of MRSA. He denies any cough cold. Patient was concerned due to his continued area of redness to the thought that he should be seen.Patient denies any recent fever, chills, shortness of breath, chest pain, back pain, abdominal pain, nausea vomiting, numbness or tingling, dysuria or hematuria, constipation or diarrhea, headaches or visual changes, or any other current symptoms. - Related Data Home Medications Medication Instructions Recorded Confirmed Ibuprofen [Motrin] 800 mg PO TID PRN 08/02/17 08/02/17 Previous Rx's Medication Instructions Recorded Sulfamethox-Tmp 800-160Mg [Bactrim 2 each PO Q12HR #56 tab 09/30/17 DS 800-160 mg] Allergies Allergy/AdvReac Type Severity Reaction Status Date / Time No Known Allergies Allergy Verified 09/30/17 02:02 Review of Systems ROS Statement: Those systems with pertinent positive or pertinent negative responses have been documented in the HPI. ROS Other: All systems not noted in ROS Statement are negative. Past Medical History Past Medical History: Chest Pain / Angina Additional Past Medical History / Comment(s): diverticulitis, kidney stone History of Any Multi-Drug Resistant Organisms: None Reported Past Surgical History: Heart Catheterization Additional Past Surgical History / Comment(s): bernardo knee surgery, neck surg Past Psychological History: Anxiety, Depression Smoking Status: Current every day smoker Past Alcohol Use History: Occasional Past Drug Use History: None Reported - Past Family History family Family Medical History: Cancer, Coronary Artery Disease (CAD), CVA/TIA General Exam Limitations: no limitations General appearance: alert, in no apparent distress ENT exam: Present: normal exam, mucous membranes moist Neck exam: Present: normal inspection. Absent: tenderness, meningismus, lymphadenopathy Respiratory exam: Present: normal lung sounds bilaterally. Absent: respiratory distress, wheezes, rales, rhonchi, stridor Cardiovascular Exam: Present: regular rate, normal rhythm, normal heart sounds. Absent: systolic murmur, diastolic murmur, rubs, gallop, clicks GI/Abdominal exam: Present: soft, normal bowel sounds. Absent: distended, tenderness, guarding, rebound, rigid Back exam: Present: normal inspection Neurological exam: Present: alert, oriented X3 Psychiatric exam: Present: normal affect, normal mood Skin exam: Present: warm, dry, intact, other (Abscess to left lower quadrant of the abdomen with active drainage and gaping open associated dermatitis below the area most likely due to the purulent drainage) Course Vital Signs 09/30/17 01:59 Temperature 98.3 F Pulse Rate 78 Respiratory 18 Rate Blood Pressure 144/84 O2 Sat by Pulse 97 Oximetry Medical Decision Making - Medical Decision Making 41-year-old male presents for abscess to left lower quadrant of the abdomen. At this time we will start him on Bactrim. We did discuss follow-up with his doctor we did discuss long term. We discussed return parameters all questions. Patient stated that he understood and he is in agreement this plan. All questions have been answered. He will be discharged. Disposition Clinical Impression: Abdominal wall abscess, Dry skin dermatitis Disposition: HOME SELF-CARE Condition: Stable Instructions: Abscess (ED) Additional Instructions: Please use medication as discussed. Please follow up with family doctor if symptoms have not improved over the next two days. Please return to the emergency room if your symptoms increase or worsen or for any other concerns. Prescriptions: Sulfamethox-Tmp 800-160Mg [Bactrim DS 800-160 mg] 2 each PO Q12HR #56 tab Referrals: Arik Weinberg MD [STAFF PHYSICIAN] - 1-2 days Time of Disposition: 02:41
== END 2017-09-30 02:50 | disposition home or self-care (01) ==
LOC: EC 01:47
DX: L02.211 Cutaneous abscess of abdominal wall (principal); L30.9 Dermatitis, unspecified; F17.200 Nicotine dependence, unspecified, uncomplicated; Z86.14 Personal history of Methicillin resistant Staphylococcus aureus infection
CPT/HCPCS: 99283

== ENCOUNTER 2017-10-07 13:11 | Emergency (ER) | payer OTHER ==
[2017-10-07 13:43] VITALS: RESP 18
[2017-10-07] MEDS ORDERED: RX INFO: IV CONTRAST WAS GIVEN 1 EACH MISC MISCELLANE PRN (14:33)
[2017-10-07 14:45] LABS: Basophils % (A) 0 %; Eosinophils # (A) 0.3 k/uL (0-0.7); Eosinophils % (A) 4 %; HCT 45.4 % (39.0-53.0); HGB 14.7 gm/dL (13.0-17.5); Lymphocytes # (A) 2.1 k/uL (1.0-4.8); Lymphocytes % (A) 29 %; MCH 29.3 pg (25.0-35.0); MCHC 32.4 g/dL (31.0-37.0); MCV 90.4 fL (80.0-100.0); Mean Platelet Volume 8.8; Monocytes # (A) 0.5 k/uL (0-1.0); Monocytes % (A) 8 %; Neutrophils % (A) 57 %; Platelet Count 171 k/uL (150-450); RBC 5.02 m/uL (4.30-5.90); RDW 12.3 % (11.5-15.5); WBC 7.1 k/uL (3.8-10.6)
--- NOTE | 2017-10-07 14:47 | ED ---
General Adult HPI - General Chief complaint: Abdominal Pain Stated complaint: lower abdominal pain/body cramps Time Seen by Provider: 10/07/17 14:25 Source: patient, RN notes reviewed Mode of arrival: ambulatory Limitations: no limitations - History of Present Illness Initial comments: 42-year-old male presents emergency Department chief complaint of abdominal pain and cramping. He just states she's felt very shaky lately she's been having this abdominal pain. He has a history of diverticulitis that he was concerned. He denies any high fevers. He states there is been nausea without vomiting. He denies any diarrhea or blood in the stool. He was concerned due to his continued symptoms so he thought that he should be evaluated. Patient states is not currently having any other issues at this time.Patient denies any recent fever, chills, shortness of breath, chest pain, back pain, vomiting, numbness or tingling, dysuria or hematuria, constipation or diarrhea, headaches or visual changes, or any other current symptoms. - Related Data Home Medications Medication Instructions Recorded Confirmed HYDROcodone/APAP 7.5-325MG [[place] 1 tab PO ONCE PRN 10/07/17 10/07/17 7.5-325] Multivitamins, Thera [Multivitamin 1 tab PO DAILY 10/07/17 10/07/17 (formulary)] Potassium 99 mg PO DAILY 10/07/17 10/07/17 Previous Rx's Medication Instructions Recorded Sulfamethox-Tmp 800-160Mg [Bactrim 2 each PO Q12HR #56 tab 09/30/17 DS 800-160 mg] Dicyclomine [Bentyl] 10 mg PO TID #20 capsule 10/07/17 Ibuprofen [Motrin] 600 mg PO Q6HR PRN #20 tab 10/07/17 Allergies Allergy/AdvReac Type Severity Reaction Status Date / Time No Known Allergies Allergy Verified 10/07/17 14:37 Review of Systems ROS Statement: Those systems with pertinent positive or pertinent negative responses have been documented in the HPI. ROS Other: All systems not noted in ROS Statement are negative. Past Medical History Past Medical History: Chest Pain / Angina Additional Past Medical History / Comment(s): diverticulitis, kidney stone History of Any Multi-Drug Resistant Organisms: None Reported Past Surgical History: Heart Catheterization Additional Past Surgical History / Comment(s): bernardo knee surgery, neck surg Past Psychological History: Anxiety, Depression Smoking Status: Current every day smoker Past Alcohol Use History: Occasional Past Drug Use History: None Reported - Past Family History family Family Medical History: Cancer, Coronary Artery Disease (CAD), CVA/TIA General Exam - General Exam Comments Initial Comments: General: The patient is awake and alert, in no distress, and does not appear acutely ill. Eye: Pupils are equal, round and reactive to light, extra-ocular movements are intact; there is normal conjunctiva bilaterally. No signs of icterus. Ears, nose, mouth and throat: There are moist mucous membranes and no oral lesions. Neck: The neck is supple, there is no tenderness. Cardiovascular: There is a regular rate and rhythm. No murmur, rub or gallop is appreciated. Respiratory: Lungs are clear to auscultation, respirations are non-labored, breath sounds are equal. No wheezes, stridor, rales, or rhonchi. Gastrointestinal: Soft, non-distended, tenderness in left lower quadrant of the abdomen without masses or organomegaly noted. There is no rebound or guarding present. No CVA tenderness. Bowel sounds are unremarkable. Back: There is no tenderness to palpation in the midline. There is no obvious deformity. No rashes noted. Musculoskeletal: Normal ROM, no tenderness, There is no pedal edema. There is no calf tenderness or swelling. Sensation intact. Pulses equal bilaterally 2+. Neurological: CN II-XII intact, There are no obvious motor or sensory deficits. Coordination appears grossly intact. Speech is normal. Skin: Skin is warm and dry and no rashes or lesions are noted. Psychiatric: Cooperative, appropriate mood & affect, normal judgment. Limitations: no limitations Course Vital Signs 10/07/17 13:41 Temperature 98.5 F Pulse Rate 87 Respiratory 18 Rate Blood Pressure 150/80 O2 Sat by Pulse 97 Oximetry Medical Decision Making - Medical Decision Making 42-year-old male presents to the emergency department with a chief complaint of abdominal pain. This time patient's lab work and CAT scan has been reviewed and are negative. At this time we discussed most likely a viral like syndrome. We discussed continuing Motrin we'll start him on Bentyl for pain control. We discussed return parameters and follow-up and all questions. Patient stated that he understood and he is agreement this plan. All questions have been answered. He will be discharged. - Lab Data Result diagrams: 10/07/17 14:31 10/07/17 14:31 Lab Results 10/07/17 10/07/17 10/07/17 Range/Units 14:31 14:31 14:31 WBC 7.1 (3.8-10.6) k/uL RBC 5.02 (4.30-5.90) m/uL Hgb 14.7 (13.0-17.5) gm/dL Hct 45.4 (39.0-53.0) % MCV 90.4 (80.0-100.0) fL MCH 29.3 (25.0-35.0) pg MCHC 32.4 (31.0-37.0) g/dL RDW 12.3 (11.5-15.5) % Plt Count 171 (150-450) k/uL Neutrophils % 57 % Lymphocytes % 29 % Monocytes % 8 % Eosinophils % 4 % Basophils % 0 % Neutrophils # 4.0 (1.3-7.7) k/uL Lymphocytes # 2.1 (1.0-4.8) k/uL Monocytes # 0.5 (0-1.0) k/uL Eosinophils # 0.3 (0-0.7) k/uL Basophils # 0.0 (0-0.2) k/uL Sodium 140 (137-145) mmol/L Potassium 4.8 (3.5-5.1) mmol/L Chloride 104 (98-107) mmol/L Carbon Dioxide 23 (22-30) mmol/L Anion Gap 13 mmol/L BUN 17 (9-20) mg/dL Creatinine 0.98 (0.66-1.25) mg/dL Est GFR (MDRD) Af Amer >60 (>60 ml/min/1.73 sqM) Est GFR (MDRD) Non-Af >60 (>60 ml/min/1.73 sqM) Glucose 124 H (74-99) mg/dL Calcium 9.5 (8.4-10.2) mg/dL Total Bilirubin 0.6 (0.2-1.3) mg/dL AST 39 (17-59) U/L ALT 54 (21-72) U/L Alkaline Phosphatase 68 (38-126) U/L Total Protein 7.0 (6.3-8.2) g/dL Albumin 4.3 (3.5-5.0) g/dL Amylase 46 (30-110) U/L Lipase 144 (23-300) U/L Urine Color Yellow Urine Appearance Clear (Clear) Urine pH 5.5 (5.0-8.0) Ur Specific [place] 1.013 (1.001-1.035) Urine Protein Negative (Negative) Urine Glucose (UA) Negative (Negative) Urine Ketones Negative (Negative) Urine Blood Negative (Negative) Urine Nitrite Negative (Negative) Urine Bilirubin Negative (Negative) Urine Urobilinogen <2.0 (<2.0) mg/dL Ur Leukocyte Esterase Negative (Negative) - Radiology Data Radiology results: report reviewed, image reviewed Disposition Clinical Impression: Abdominal pain, Abdominal cramping Disposition: HOME SELF-CARE Condition: Stable Instructions: Abdominal Pain (ED) Additional Instructions: Please use medication as discussed. Please follow up with family doctor if symptoms have not improved over the next two days. Please return to the emergency room if your symptoms increase or worsen or for any other concerns. Prescriptions: Dicyclomine [Bentyl] 10 mg PO TID #20 capsule Ibuprofen [Motrin] 600 mg PO Q6HR PRN #20 tab PRN Reason: Pain Referrals: Lisa Moran MD [REFERRING] - 1-2 days Time of Disposition: 15:54
[2017-10-07 14:58] LABS: ALT 54 U/L (21-72); AST 39 U/L (17-59); Albumin 4.3 g/dL (3.5-5.0); Alkaline Phosphatase 68 U/L (38-126); Amylase 46 U/L (30-110); Anion Gap 13 mmol/L; Blood Urea Nitrogen 17 mg/dL (9-20); Calcium 9.5 mg/dL (8.4-10.2); Carbon Dioxide 23 mmol/L (22-30); Chloride 104 mmol/L (98-107); Glucose 124 mg/dL (74-99); Lipase 144 U/L (23-300); Potassium 4.8 mmol/L (3.5-5.1); Sodium 140 mmol/L (137-145); Total Bilirubin 0.6 mg/dL (0.2-1.3)
[2017-10-07 15:00] LABS: Appearance,Urine Clear (Clear); Bilirubin,Urine Negative (Negative); Blood,Urine Negative (Negative); Color,Urine Yellow; Glucose,Urine (UA) Negative (Negative); Ketones,Urine Negative (Negative); Leukocyte Esterase,Urine Negative (Negative); Nitrite,Urine Negative (Negative); PH, Urine 5.5 (5.0-8.0); Protein,Urine Negative (Negative); Specific Gravity,Urine 1.013 (1.001-1.035); Urobilinogen,Urine <2.0 mg/dL (<2.0)
--- NOTE | 2017-10-07 15:28 | CT ---
EXAMINATION TYPE: CT abdomen pelvis w con DATE OF EXAM: 10/07/2017 COMPARISON: NONE HISTORY: Left sided abdominal pain with cramping CT DLP: 4268.1 mGycm Automated exposure control for dose reduction was used. TECHNIQUE: Helical acquisition of images was performed from the lung bases through the pelvis. CONTRAST: Performed without Oral Contrast and with IV Contrast, patient injected with 100 mL of Omnipaque 300. FINDINGS: LUNG BASES: No significant abnormality is appreciated other than minimal scarring along the interloba r fissure on the left. LIVER/GB: No significant abnormality is appreciated. No cholelithiasis. PANCREAS: No significant abnormality is seen. No ductal dilatation. SPLEEN: No significant abnormality is seen. No spinal megal ADRENALS: No significant abnormality is seen. KIDNEYS: No significant abnormality is seen. No hydronephrosis. FREE AIR: No free air is visualized. ADENOPATHY: None visualized REPRODUCTIVE ORGANS: No significant abnormality is seen URINARY BLADDER: No significant abnormality is seen. OSSEOUS STRUCTURES: No significant abnormality is seen. BOWEL: No dilation. Few scattered sigmoid diverticula are seen without pericolonic fat stranding. OTHER: Small fat filled periumbilical hernia seen. Mild multilevel degenerative changes of the spine are noted. IMPRESSION: NO CT FINDING TO CORRESPOND TO THE PATIENT'S ABDOMINAL PAIN. NO EVIDENCE OF BOWEL OBSTRUCTION OR HYDR ONEPHROSIS.
[2017-10-07] MEDS ORDERED: SODIUM CHLORIDE 0.9% 500 ML IV STA (15:32)
[2017-10-07] MEDS ORDERED: DICYCLOMINE 10 MG/ML 2 ML AMP IM STA (15:32)
[2017-10-07] MEDS ORDERED: KETOROLAC 30 MG/ML 1 ML VIAL IVP STA (15:32)
[2017-10-07 16:44] VITALS: BP 125/58; PULSE 63; TEMP 98.4
== END 2017-10-07 16:46 | disposition home or self-care (01) ==
LOC: EC 13:11
DX: R10.9 Unspecified abdominal pain (principal); R11.0 Nausea; F17.200 Nicotine dependence, unspecified, uncomplicated; Z87.19 Personal history of other diseases of the digestive system; Z79.899 Other long term (current) drug therapy
CPT/HCPCS: 36415; 80053; 82150; 83690; 85025; 81003; 74177; 99284; 96374; 96361; 96372; J0500; J1885; Q9967

== ENCOUNTER 2017-12-02 19:52 | Emergency (ER) | payer OTHER ==
[2017-12-02 19:56] VITALS: BP 157/91; PULSE 71; RESP 18; TEMP 97.9
--- NOTE | 2017-12-02 20:06 | ED ---
Lower Extremity Injury HPI - General Chief Complaint: Extremity Injury, Lower Stated Complaint: knee pain Time Seen by Provider: 12/02/17 20:00 Source: patient, RN notes reviewed Mode of arrival: wheelchair Limitations: no limitations - History of Present Illness Initial Comments: This is a 42-year-old male who presents to the emergency department with chief complaint of left knee injury. Patient states that at approximately 6 PM this evening he was walking. His left knee gave out and he felt a pop. He states that his kneecap seemed to dislocate off to the side and he had to pop it back in. He states since that time, his knee has felt unsteady and unstable. He states he has difficulty bearing weight and ambulating. He does report a history of bilateral knee dislocations and knee surgeries. Denies any other injuries or trauma. Denies fever, chills, chest pain, shortness of breath, abdominal pain, nausea or vomiting, constipation or diarrhea, dysuria or hematuria, numbness or tingling, headache or vision changes. - Related Data Previous Rx's Medication Instructions Recorded Ibuprofen [Motrin] 600 mg PO Q6HR PRN #20 tab 10/07/17 Allergies Allergy/AdvReac Type Severity Reaction Status Date / Time No Known Allergies Allergy Verified 10/07/17 14:37 Review of Systems ROS Statement: Those systems with pertinent positive or pertinent negative responses have been documented in the HPI. ROS Other: All systems not noted in ROS Statement are negative. Past Medical History Past Medical History: Chest Pain / Angina Additional Past Medical History / Comment(s): diverticulitis, kidney stone History of Any Multi-Drug Resistant Organisms: None Reported Past Surgical History: Heart Catheterization Additional Past Surgical History / Comment(s): bernardo knee surgery, neck surg Past Psychological History: Anxiety, Depression Smoking Status: Current every day smoker Past Alcohol Use History: Occasional Past Drug Use History: None Reported - Past Family History family Family Medical History: Cancer, Coronary Artery Disease (CAD), CVA/TIA General Exam - General Exam Comments Initial Comments: General: Awake and alert, well-developed; in no apparent distress. Lying comfortably on ED stretcher. HEENT: Head atraumatic, normocephalic. Pupils are equal, round and reactive to light. Extraocular movements intact. Oropharynx moist without erythema or exudate. Neck: Supple. Normal ROM. Cardiovascular: Regular rate and rhythm. No murmurs, rubs or gallops. Chest symmetrical. Respiratory: Lungs clear to auscultation bilaterally. No wheezes, rales or rhonchi. Normal respiratory effort with no use of accessory muscles. Musculoskeletal: Normal ROM of the left knee, however pain is elicited with full flexion. Tenderness on palpation of lateral joint line and lateral aspect of patella. No swelling, erythema or warmth noted. Sensation is intact. Pedal pulses are 2+ equal and palpable bilaterally. Skin: [place], warm and dry without rashes or lesions. Neurological: Alert and oriented x3. CN II-XII grossly intact. Speech is fluent and answers are appropriate. No focal neuro deficits. Psychiatric: Normal mood and affect. No overt signs of depression or anxiety noted. Limitations: no limitations Course Vital Signs 12/02/17 19:53 Temperature 97.9 F Pulse Rate 71 Respiratory 18 Rate Blood Pressure 157/91 O2 Sat by Pulse 97 Oximetry Medical Decision Making - Medical Decision Making This is a 42-year-old male who presents to the emergency department with chief complaint of left knee injury. Patient is having difficulty ambulating and feels like his knee is unstable. On physical examination, there is mild tenderness on palpation of the lateral patella. No swelling or laxity noted. X -ray was obtained and revealed no acute fractures or dislocations. He was placed in knee immobilizer. Patient is neurovascularly intact. He will be given a referral to [facility] and recommended following up with them tomorrow morning. Patient's vital signs are stable and he is in no acute distress. He'll be discharged home at this time. Return parameters were discussed. All questions were answered. - Radiology Data Radiology results: report reviewed, image reviewed X-ray left knee findings: There is no acute fracture/dislocation. The tricompartment joint spaces appear mildly narrowed. The overlying soft tissue appears unremarkable. Impression: There is no acute fracture or dislocation. Disposition Clinical Impression: Left knee pain Disposition: HOME SELF-CARE Condition: Good Instructions: Knee Sprain (ED), Knee Pain (ED) Additional Instructions: Please rest, ice, elevate and take ibuprofen or Tylenol as needed. Please wear knee immobilizer while ambulating. Please follow up tomorrow morning with [facility]. Please follow up with primary care provider within 1-2 days. Return to emergency department if symptoms should worsen or any concerns arise. Is patient prescribed a controlled substance at d/c from ED?: No Referrals: None,Stated [Primary Care Provider] - 1-2 days Govind De Oliveira, PAC [PHYSICIAN GUEST SERVICE REPRESENTATIVE] - 1-2 days Time of Disposition: 20:34
--- NOTE | 2017-12-02 20:25 | XR ---
EXAMINATION TYPE: XR knee complete LT DATE OF EXAM: 12/02/2017 CLINICAL HISTORY: pain TECHNIQUE: Three views of the left knee are obtained. COMPARISON: None. FINDINGS: There is no acute fracture/dislocation. The tri-compartment joint spaces appear mildly na rrowed. The overlying soft tissue appears unremarkable. IMPRESSION: There is no acute fracture or dislocation ICD 10 NO FRACTURE, INITIAL EVALUATION
== END 2017-12-02 21:00 | disposition home or self-care (01) ==
LOC: EC 19:52
DX: M25.562 Pain in left knee (principal); F17.200 Nicotine dependence, unspecified, uncomplicated; Z95.818 Presence of other cardiac implants and grafts; Z98.890 Other specified postprocedural states; X50.9XXA Other and unspecified overexertion or strenuous movements or postures, initial encounter; Y93.01 Activity, walking, marching and hiking; Y92.69 Other specified industrial and construction area as the place of occurrence of the external cause; Y99.0 Civilian activity done for income or pay
CPT/HCPCS: 99283

== ENCOUNTER 2017-12-24 13:25 | Emergency (ER) | payer OTHER ==
[2017-12-24] MEDS ORDERED: RX INFO: IV CONTRAST WAS GIVEN 1 EACH MISC MISCELLANE PRN (13:43)
[2017-12-24] MEDS ORDERED: HYDROcodone/APAP 10-325MG 1 EACH TAB PO ONE (13:43)
[2017-12-24] MEDS ORDERED: ONDANSETRON 4 MG/2 ML VIAL IVP STA (13:43)
--- NOTE | 2017-12-24 13:48 | ED ---
Abdominal Pain HPI - General Chief Complaint: Abdominal Pain Stated Complaint: abd pain Time Seen by Provider: 12/24/17 13:35 Source: patient Mode of arrival: ambulatory Limitations: no limitations - History of Present Illness Initial Comments: This is a 42-year-old obese male who presents emergency department for lower abdominal pain for the last day. He states that it is a generalized achiness of the lower abdomen with intermittent episodes of sharp shooting pain in the left lower quadrant. He states that he does have a history of diverticulitis and this does feel similar. He does admit to some nausea however no vomiting. Also admits to some loose stools over no blood. Denies any constipation. No fevers or chills. He does admit that the pain seems to get worse with eating or drinking however is not located in the upper abdomen. He denies any hematuria or dysuria. He does admit to little bit of decreased urination however. No other acute complaints. - Related Data Previous Rx's Medication Instructions Recorded Ibuprofen [Motrin] 600 mg PO Q6HR PRN #20 tab 10/07/17 Allergies Allergy/AdvReac Type Severity Reaction Status Date / Time No Known Allergies Allergy Verified 12/24/17 13:51 Review of Systems ROS Statement: Those systems with pertinent positive or pertinent negative responses have been documented in the HPI. ROS Other: All systems not noted in ROS Statement are negative. Past Medical History Past Medical History: Chest Pain / Angina Additional Past Medical History / Comment(s): diverticulitis, kidney stone History of Any Multi-Drug Resistant Organisms: None Reported Past Surgical History: Heart Catheterization Additional Past Surgical History / Comment(s): bernardo knee surgery, neck surg Past Psychological History: Anxiety, Depression Smoking Status: Current every day smoker Past Alcohol Use History: Occasional Past Drug Use History: Marijuana - Past Family History family Family Medical History: Cancer, Coronary Artery Disease (CAD), CVA/TIA General Exam - General Exam Comments Initial Comments: Constitutional: Awake alert Appears comfortable Head: Normocephalic atraumatic Eyes: no conjunctival injection No scleral icterus EOMI Neck: No JVD Supple Heart: Regular rate rhythm normal S1-S2 no murmurs Lungs: Clear to auscultation bilaterally No wheezing No rales Abdomen: Soft nondistended tenderness to palpation in right lower quadrant and left lower quadrant. No rebound or guarding Extremities: Non edematous DP pulses intact Radial pulses intact Neuro: A&Ox3 No focal neurologic deficits Psych: Appropriate mood and affect Limitations: no limitations Course Vital Signs 12/24/17 12/24/17 13:31 15:21 Temperature 97.9 F 97.4 F L Pulse Rate 75 63 Respiratory 20 18 Rate Blood Pressure 154/86 127/58 O2 Sat by Pulse 97 97 Oximetry Medical Decision Making - Medical Decision Making Is a 42-year-old male who came in for left lower quadrant abdominal pain. Computed tomography scan of his abdomen did not show any acute intra-abdominal process. The patient felt improved after medications. Labwork reviewed and unremarkable for leukocytosis or any electrolyte abnormalities. At this time unclear etiology of his pain. Could be muscular skeletal in nature. Could also be early enteritis. Told the patient to stay home from work. If he has worsening or changing symptoms she can return emergency Department. Otherwise needs close follow up with his primary doctor. All cautions answered. - Lab Data Result diagrams: 12/24/17 14:24 12/24/17 14:24 Lab Results 12/24/17 12/24/17 12/24/17 Range/Units 14:24 14:24 14:24 WBC 9.5 (3.8-10.6) k/uL RBC 4.63 (4.30-5.90) m/uL Hgb 14.2 (13.0-17.5) gm/dL Hct 39.8 (39.0-53.0) % MCV 85.9 (80.0-100.0) fL MCH 30.6 (25.0-35.0) pg MCHC 35.6 (31.0-37.0) g/dL RDW 12.5 (11.5-15.5) % Plt Count 170 (150-450) k/uL Neutrophils % 63 % Lymphocytes % 23 % Monocytes % 8 % Eosinophils % 5 % Basophils % 0 % Neutrophils # 5.9 (1.3-7.7) k/uL Lymphocytes # 2.1 (1.0-4.8) k/uL Monocytes # 0.8 (0-1.0) k/uL Eosinophils # 0.4 (0-0.7) k/uL Basophils # 0.0 (0-0.2) k/uL Sodium 142 (137-145) mmol/L Potassium 4.4 (3.5-5.1) mmol/L Chloride 105 (98-107) mmol/L Carbon Dioxide 23 (22-30) mmol/L Anion Gap 14 mmol/L BUN 20 (9-20) mg/dL Creatinine 0.92 (0.66-1.25) mg/dL Est GFR (CKD-EPI)AfAm >90 (>60 ml/min/1.73 sqM) Est GFR (CKD-EPI)NonAf >90 (>60 ml/min/1.73 sqM) Glucose 95 (74-99) mg/dL Calcium 9.6 (8.4-10.2) mg/dL Total Bilirubin 0.6 (0.2-1.3) mg/dL AST 32 (17-59) U/L ALT 52 (21-72) U/L Alkaline Phosphatase 66 (38-126) U/L Total Protein 6.3 (6.3-8.2) g/dL Albumin 4.1 (3.5-5.0) g/dL Urine Color Yellow Urine Appearance Clear (Clear) Urine pH 5.5 (5.0-8.0) Ur Specific [place] 1.024 (1.001-1.035) Urine Protein Negative (Negative) Urine Glucose (UA) Negative (Negative) Urine Ketones Negative (Negative) Urine Blood Negative (Negative) Urine Nitrite Negative (Negative) Urine Bilirubin Negative (Negative) Urine Urobilinogen 2.0 (<2.0) mg/dL Ur Leukocyte Esterase Negative (Negative) Disposition Clinical Impression: Abdominal pain Disposition: HOME SELF-CARE Condition: Stable Instructions: Abdominal Pain (ED) Is patient prescribed a controlled substance at d/c from ED?: No Referrals: None,Stated [Primary Care Provider] - 1-2 days
[2017-12-24 14:38] LABS: Appearance,Urine Clear (Clear); Basophils % (A) 0 %; Bilirubin,Urine Negative (Negative); Blood,Urine Negative (Negative); Color,Urine Yellow; Eosinophils # (A) 0.4 k/uL (0-0.7); Eosinophils % (A) 5 %; Glucose,Urine (UA) Negative (Negative); HCT 39.8 % (39.0-53.0); HGB 14.2 gm/dL (13.0-17.5); Ketones,Urine Negative (Negative); Leukocyte Esterase,Urine Negative (Negative); Lymphocytes # (A) 2.1 k/uL (1.0-4.8); Lymphocytes % (A) 23 %; MCH 30.6 pg (25.0-35.0); MCHC 35.6 g/dL (31.0-37.0); MCV 85.9 fL (80.0-100.0); Mean Platelet Volume 9.9; Monocytes # (A) 0.8 k/uL (0-1.0); Monocytes % (A) 8 %; Neutrophils # (A) 5.9 k/uL (1.3-7.7); Neutrophils % (A) 63 %; Nitrite,Urine Negative (Negative); PH, Urine 5.5 (5.0-8.0); Platelet Count 170 k/uL (150-450); Protein,Urine Negative (Negative); RBC 4.63 m/uL (4.30-5.90); RDW 12.5 % (11.5-15.5); Specific Gravity,Urine 1.024 (1.001-1.035); WBC 9.5 k/uL (3.8-10.6)
[2017-12-24 14:48] LABS: ALT 52 U/L (21-72); AST 32 U/L (17-59); Albumin 4.1 g/dL (3.5-5.0); Alkaline Phosphatase 66 U/L (38-126); Anion Gap 14 mmol/L; Blood Urea Nitrogen 20 mg/dL (9-20); Calcium 9.6 mg/dL (8.4-10.2); Carbon Dioxide 23 mmol/L (22-30); Chloride 105 mmol/L (98-107); Glucose 95 mg/dL (74-99); Potassium 4.4 mmol/L (3.5-5.1); Sodium 142 mmol/L (137-145); Total Bilirubin 0.6 mg/dL (0.2-1.3); Total Protein 6.3 g/dL (6.3-8.2)
--- NOTE | 2017-12-24 15:07 | CT ---
EXAMINATION TYPE: CT abdomen pelvis w con DATE OF EXAM: 12/24/2017 COMPARISON: CT abdomen pelvis October 07, 2017 HISTORY: Left lower quadrant pain. CT DLP: 4414.7 mGycm, Automated Exposure Control for Dose Reduction was Utilized. CONTRAST: CT scan of the abdomen and pelvis is performed without oral but with IV Contrast, patient injected wi th 100 mL of Isovue M300. FINDINGS: LUNG BASES: No significant abnormality is appreciated. LIVER/GB: Contracted gallbladder incidentally noted. PANCREAS: No significant abnormality is seen. SPLEEN: No significant abnormality is seen. ADRENALS: No significant abnormality is seen. KIDNEYS: No significant abnormality is seen. BOWEL: Evaluation of bowel is slightly suboptimal secondary to lack of enteric contrast. There is no suspicious small or large bowel dilatation seen. Small bowel feces sign terminal ileum is noted. CT f indings suggesting delayed passage of ingested material 2 colonic level. There is poorly distended mi d to distal left colon. No significant surrounding inflammatory changes are seen. PROSTATE/SEMINAL VESICLES: No gross abnormality seen. LYMPH NODES: No greater than 1cm abdominal or pelvic lymph nodes are appreciated. OSSEOUS STRUCTURES: Spine is straightened. There is mild to moderate multilevel spurring and disc spa ce narrowing. There is facet arthropathy lower lumbar levels. There is moderate joint space loss in b oth hips. OTHER: No significant additional abnormality is seen. IMPRESSION: No significant new or acute finding is seen to account for patient's clinical symptoms.
[2017-12-24 15:22] VITALS: BP 127/58; PULSE 63; RESP 18; TEMP 97.4
== END 2017-12-24 15:22 | disposition home or self-care (01) ==
LOC: EC 13:25
DX: R10.32 Left lower quadrant pain (principal); R11.0 Nausea; R33.9 Retention of urine, unspecified; F17.200 Nicotine dependence, unspecified, uncomplicated; E66.9 Obesity, unspecified; Z68.42 Body mass index [BMI] 45.0-49.9, adult; Z87.19 Personal history of other diseases of the digestive system; Z87.442 Personal history of urinary calculi; Z95.818 Presence of other cardiac implants and grafts
CPT/HCPCS: 99284; 96374; 36415; 80053; 85025; 81003; 74177; J2405; Q9967

== ENCOUNTER 2018-07-11 18:34 | Emergency (ER) | payer OTHER ==
[2018-07-11 19:34] VITALS: TEMP 98.1
--- NOTE | 2018-07-11 20:29 | ED ---
Abdominal Pain HPI - General Chief Complaint: Abdominal Pain Stated Complaint: abdominal & back pain Time Seen by Provider: 07/11/18 20:10 Source: patient Mode of arrival: ambulatory Limitations: no limitations - History of Present Illness Initial Comments: This is a 42-year-old male to the ER for evaluation. Patient resents today for evaluation regards to abdominal pain, right lower quadrant abdominal pain. Patient has multiple medical issues with history of diverticulitis history of kidney stones. Mild fevers and chills, no significant diaphoresis, patient did not have an appetite today, no diarrhea. No abnormal bowel movements. Pain just started today when he woke up, never had prior similar issues before. No modifying factors for pain MD Complaint: abdominal pain -: hour(s) Location: RLQ Radiation: RLQ Migration to: no migration Severity: moderate Severity scale (1-10): 5 Quality: cramping, aching Consistency: constant Improves With: nothing Worsens With: nothing Associated Symptoms: nausea - Related Data Home Medications Medication Instructions Recorded Confirmed Ibuprofen [Motrin Ib] 800 mg PO Q6H PRN 07/11/18 07/11/18 Allergies Allergy/AdvReac Type Severity Reaction Status Date / Time No Known Allergies Allergy Verified 07/11/18 20:14 Review of Systems ROS Statement: Those systems with pertinent positive or pertinent negative responses have been documented in the HPI. ROS Other: All systems not noted in ROS Statement are negative. Past Medical History Past Medical History: Chest Pain / Angina Additional Past Medical History / Comment(s): diverticulitis, kidney stone History of Any Multi-Drug Resistant Organisms: None Reported Past Surgical History: Heart Catheterization Additional Past Surgical History / Comment(s): bernardo knee surgery, neck surg Past Psychological History: Anxiety, Depression Smoking Status: Current every day smoker Past Alcohol Use History: Occasional Past Drug Use History: Marijuana - Past Family History family Family Medical History: Cancer, Coronary Artery Disease (CAD), CVA/TIA General Exam Limitations: no limitations General appearance: alert, in no apparent distress, obese Head exam: Present: atraumatic, normocephalic, normal inspection Eye exam: Present: normal appearance, PERRL, EOMI. Absent: scleral icterus, conjunctival injection, periorbital swelling ENT exam: Present: normal exam, mucous membranes moist Neck exam: Present: normal inspection. Absent: tenderness, meningismus, lymphadenopathy Respiratory exam: Present: normal lung sounds bilaterally. Absent: respiratory distress, wheezes, rales, rhonchi, stridor Cardiovascular Exam: Present: regular rate, normal rhythm, normal heart sounds. Absent: systolic murmur, diastolic murmur, rubs, gallop, clicks GI/Abdominal exam: Present: soft, normal bowel sounds. Absent: distended, tenderness, guarding, rebound, rigid Extremities exam: Present: normal inspection, full ROM, normal capillary refill. Absent: tenderness, pedal edema, joint swelling, calf tenderness Back exam: Present: normal inspection Neurological exam: Present: alert, oriented X3, CN II-XII intact Psychiatric exam: Present: normal affect, normal mood Skin exam: Present: warm, dry, intact, normal color. Absent: rash Course Vital Signs 07/11/18 19:30 Temperature 98.1 F Pulse Rate 71 Respiratory 18 Rate Blood Pressure 159/104 O2 Sat by Pulse 98 Oximetry - Reevaluation(s) Reevaluation #1: 07/11/18 21:40 Medical record is reviewed Reevaluation #2: 07/11/18 21:40 Patient has pain control Medical Decision Making - Medical Decision Making 2 male obese, but able abdominal pain. No cause of bowel pain found here in emergency room, patient's pain is controlled, CT labwork is normal patient will be discharged - Lab Data Result diagrams: 07/11/18 20:10 07/11/18 20:10 Lab Results 07/11/18 07/11/18 Range/Units 20:10 20:10 WBC 8.7 (3.8-10.6) k/uL RBC 5.28 (4.30-5.90) m/uL Hgb 15.3 (13.0-17.5) gm/dL Hct 46.6 (39.0-53.0) % MCV 88.2 (80.0-100.0) fL MCH 29.1 (25.0-35.0) pg MCHC 32.9 (31.0-37.0) g/dL RDW 12.6 (11.5-15.5) % Plt Count 173 (150-450) k/uL Neutrophils % 52 % Lymphocytes % 36 % Monocytes % 7 % Eosinophils % 3 % Basophils % 1 % Neutrophils # 4.5 (1.3-7.7) k/uL Lymphocytes # 3.1 (1.0-4.8) k/uL Monocytes # 0.6 (0-1.0) k/uL Eosinophils # 0.2 (0-0.7) k/uL Basophils # 0.1 (0-0.2) k/uL Sodium 139 (137-145) mmol/L Potassium 4.6 (3.5-5.1) mmol/L Chloride 107 (98-107) mmol/L Carbon Dioxide 24 (22-30) mmol/L Anion Gap 8 mmol/L BUN 14 (9-20) mg/dL Creatinine 0.86 (0.66-1.25) mg/dL Est GFR (CKD-EPI)AfAm >90 (>60 ml/min/1.73 sqM) Est GFR (CKD-EPI)NonAf >90 (>60 ml/min/1.73 sqM) Glucose 89 (74-99) mg/dL Calcium 9.6 (8.4-10.2) mg/dL Total Bilirubin 0.5 (0.2-1.3) mg/dL AST 30 (17-59) U/L ALT 48 (21-72) U/L Alkaline Phosphatase 65 (38-126) U/L Total Protein 7.1 (6.3-8.2) g/dL Albumin 4.3 (3.5-5.0) g/dL Amylase 40 (30-110) U/L Lipase 94 (23-300) U/L - Radiology Data Radiology results: report reviewed (CT of the pelvis negative for acute disease) , image reviewed Disposition Clinical Impression: Abdominal pain Disposition: HOME SELF-CARE Condition: Good Instructions: Abdominal Pain (ED) Is patient prescribed a controlled substance at d/c from ED?: No Referrals: None,Stated [Primary Care Provider] - 1-2 days
[2018-07-11 20:31] LABS: Basophils # (A) 0.1 k/uL (0-0.2); Basophils % (A) 1 %; Eosinophils # (A) 0.2 k/uL (0-0.7); Eosinophils % (A) 3 %; HCT 46.6 % (39.0-53.0); HGB 15.3 gm/dL (13.0-17.5); Lymphocytes # (A) 3.1 k/uL (1.0-4.8); Lymphocytes % (A) 36 %; MCH 29.1 pg (25.0-35.0); MCHC 32.9 g/dL (31.0-37.0); MCV 88.2 fL (80.0-100.0); Mean Platelet Volume 9.1; Monocytes # (A) 0.6 k/uL (0-1.0); Monocytes % (A) 7 %; Neutrophils # (A) 4.5 k/uL (1.3-7.7); Neutrophils % (A) 52 %; Platelet Count 173 k/uL (150-450); RBC 5.28 m/uL (4.30-5.90); RDW 12.6 % (11.5-15.5); WBC 8.7 k/uL (3.8-10.6)
[2018-07-11] MEDS ORDERED: MORPHINE SULFATE 4 MG/ML SYRINGE IVP STA (20:38)
[2018-07-11 20:42] LABS: ALT 48 U/L (21-72); AST 30 U/L (17-59); Albumin 4.3 g/dL (3.5-5.0); Alkaline Phosphatase 65 U/L (38-126); Amylase 40 U/L (30-110); Anion Gap 8 mmol/L; Blood Urea Nitrogen 14 mg/dL (9-20); Calcium 9.6 mg/dL (8.4-10.2); Carbon Dioxide 24 mmol/L (22-30); Chloride 107 mmol/L (98-107); Glucose 89 mg/dL (74-99); Lipase 94 U/L (23-300); Potassium 4.6 mmol/L (3.5-5.1); Sodium 139 mmol/L (137-145); Total Bilirubin 0.5 mg/dL (0.2-1.3); Total Protein 7.1 g/dL (6.3-8.2)
--- NOTE | 2018-07-11 20:52 | XR ---
EXAMINATION TYPE: XR KUB DATE OF EXAM: 07/11/2018 COMPARISON: NONE HISTORY: Right lower quadrant pain TECHNIQUE: 3 views upright FINDINGS: There is no sign of intestinal obstruction or pneumoperitoneum. Fecal pattern is normal. Th ere are no pathologic calcifications over the kidneys. There is no sign of a mass. Lung bases are laurita ar. IMPRESSION: Nonacute abdomen.
--- NOTE | 2018-07-11 21:14 | CT ---
EXAMINATION TYPE: CT abdomen pelvis w con DATE OF EXAM: 07/11/2018 COMPARISON: 12/24/2017 HISTORY: RLQ pain. hx of stones and diverticulitis CT DLP: 3380 mGycm Automated exposure control for dose reduction was used. TECHNIQUE: Helical acquisition of images was performed from the lung bases through the pelvis. CONTRAST: Performed without Oral Contrast and with IV Contrast, patient injected with 100 mL of Isovue 300. FINDINGS: Heart size is normal. There is no pericardial effusion. Lung bases are clear. There is no pleural eff usion. Liver shows no focal defect. Spleen appears normal. There is no pancreatic mass. Gallbladder a ppears normal. Bile ducts are not dilated. There is no adrenal mass. Kidneys show satisfactory contrast opacification. There is no hydronephrosi s. There is no sign of free air. There is no ascites. Bladder distends smoothly. There is no free flu id in the pelvis. There is no inguinal hernia. The appendix appears normal. There is no evidence of a bowel obstruction. There is no mesenteric edema or adenopathy. IMPRESSION: NEGATIVE CT SCAN ABDOMEN AND PELVIS. NORMAL APPENDIX. I DO NOT SEE A CAUSE FOR RIGHT LOWER QUADRANT P AIN. NO ADVERSE CHANGE COMPARED TO OLD EXAM.
[2018-07-11 22:18] VITALS: RESP 16
[2018-07-11 22:20] VITALS: BP 135/78; PULSE 57
== END 2018-07-11 23:00 | disposition home or self-care (01) ==
LOC: EC 18:34
DX: R10.31 Right lower quadrant pain (principal); R11.0 Nausea; R50.9 Fever, unspecified; E66.9 Obesity, unspecified; F17.200 Nicotine dependence, unspecified, uncomplicated; Z86.79 Personal history of other diseases of the circulatory system; Z95.818 Presence of other cardiac implants and grafts; Z87.19 Personal history of other diseases of the digestive system; Z87.442 Personal history of urinary calculi; Z68.42 Body mass index [BMI] 45.0-49.9, adult
CPT/HCPCS: 96374 ×2; 99284 ×2; 36415; 80053; 82150; 83690; 85025; 74018; 74177; J2270; Q9967

== ENCOUNTER 2019-02-17 23:10 | Emergency (ER) | payer OTHER ==
--- NOTE | 2019-02-18 02:05 | XR ---
EXAM: XR Chest, 1 view CLINICAL HISTORY: ITS.REASON XR Reason: Chest Pain TECHNIQUE: Frontal view of the chest. COMPARISON: 08/02/17 FINDINGS: Lungs: No consolidation or mass. Pleural space: No effusion. Heart: No cardiomegaly. Mediastinum: Unremarkable. Bones/joints: No acute findings. IMPRESSION: No acute cardiopulmonary process.
--- NOTE | 2019-02-18 02:10 | XR ---
EXAM: XR Right Wrist 1 view CLINICAL HISTORY: ITS.REASON XR Reason: Pain TECHNIQUE: Frontal view of the right wrist. COMPARISON: No relevant prior studies available. FINDINGS: Bones/joints: No acute fracture. No dislocation. Soft tissues: Unremarkable. No radiopaque foreign body. IMPRESSION: No acute findings.
[2019-02-18 02:20] LABS: Basophils # (A) 0.1 k/uL (0-0.2); Basophils % (A) 1 %; Eosinophils # (A) 0.2 k/uL (0-0.7); Eosinophils % (A) 2 %; HCT 44.3 % (39.0-53.0); HGB 15.6 gm/dL (13.0-17.5); Lymphocytes # (A) 3.2 k/uL (1.0-4.8); Lymphocytes % (A) 33 %; MCH 30.4 pg (25.0-35.0); MCHC 35.2 g/dL (31.0-37.0); MCV 86.5 fL (80.0-100.0); Mean Platelet Volume 9.9; Monocytes # (A) 0.7 k/uL (0-1.0); Monocytes % (A) 7 %; Neutrophils # (A) 5.4 k/uL (1.3-7.7); Neutrophils % (A) 55 %; Platelet Count 174 k/uL (150-450); RBC 5.12 m/uL (4.30-5.90); RDW 14.1 % (11.5-15.5); WBC 9.8 k/uL (3.8-10.6)
[2019-02-18 02:33] LABS: ALT 45 U/L (21-72); AST 39 U/L (17-59); African American GFR (CKD) >90 (>60 ml/min/1.73 sqM); Albumin 4.1 g/dL (3.5-5.0); Alkaline Phosphatase 64 U/L (38-126); Anion Gap 11 mmol/L; Blood Urea Nitrogen 21 mg/dL (9-20); Carbon Dioxide 23 mmol/L (22-30); Chloride 105 mmol/L (98-107); Glucose 107 mg/dL (74-99); Potassium 4.3 mmol/L (3.5-5.1); Sodium 139 mmol/L (137-145); Total Bilirubin 0.7 mg/dL (0.2-1.3); Total Protein 6.6 g/dL (6.3-8.2)
[2019-02-18 02:54] LABS: INR 0.9 (<1.2); Prothrombin Time 10.1 sec (9.0-12.0)
[2019-02-18] MEDS ORDERED: KETOROLAC 30 MG/ML 1 ML VIAL IVP STA (03:57)
--- NOTE | 2019-02-18 04:39 | ED ---
General Adult HPI <Terry Russo - Last Filed: 02/18/19 07:01> - General Source: patient, RN notes reviewed, old records reviewed Mode of arrival: ambulatory Limitations: no limitations <Gunnar Álvarez - Last Filed: 02/18/19 17:20> - General Chief complaint: Extremity Problem,Nontraumatic Stated complaint: Wrist swelling/pain, back pain Time Seen by Provider: 02/18/19 01:11 - History of Present Illness Initial comments: 43-year-old male patient past medical history of diverticulitis, prior kidney stones presents to ED with multiple complaints. Patient he complains that he had to incidences of chest pain while at rest. Patient force of both her substernal stabbing in nature lasting about 5 minutes. Patient denies any radiation of pain. Patient has any associated symptoms including diaphoresis, shortness of breath. Patient states this pain resolved without intervention. Patient secondary complaint included some minor sciatica-like pain in his left material region radiating down his left posterior leg. Patient this feels identical to synptoms he has experienced in the past. Patient denies any recent falls or trauma. Patient has been complaining of mild amount of right wrist pa in. Patient reports that he does get this periodically. 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 Patient denies any recent falls or trauma. Patient denies any other complaints at this time. Patient vital signs stable, afebrile. Systemic: Pt denies fatigue, fever/chills, rash. Pt denies weakness, night sweats, weight loss. Neuro: Pt denies headache, visual disturbances, syncope or pre-syncope. HEENT: Pt denies ocular discharge or irritation, otalgia, rhinorrhea, pharyngitis or notable lymphadenopathy. Cardiopulmonary: Pt denies chest pain, SOB, heart palpitations, dyspnea on exertion. Abdominal/GI: Pt denies abdominal pain, n/v/d. : Pt denies dysuria, burning w/ urination, frequency/urgency. Denies new onset urinary or bowel incontinence. MSK: Pt denies loss of strength or function in extremities. Neuro: Pt denies new onset weakness, paresthesias. (Gunnar Álvarez) - Related Data Home Medications Medication Instructions Recorded Confirmed Ibuprofen [Motrin Ib] 800 mg PO Q6H PRN 07/11/18 07/11/18 Allergies Allergy/AdvReac Type Severity Reaction Status Date / Time No Known Allergies Allergy Verified 07/11/18 20:14 Review of Systems ROS Other: All systems not noted in ROS Statement are negative. <RafaelaTerry - Last Filed: 02/18/19 07:01> ROS Other: All systems not noted in ROS Statement are negative. <Gunnar Álvarez - Last Filed: 02/18/19 17:20> ROS Statement: Those systems with pertinent positive or pertinent negative responses have been documented in the HPI. Past Medical History Past Medical History: Chest Pain / Angina Additional Past Medical History / Comment(s): diverticulitis, kidney stone History of Any Multi-Drug Resistant Organisms: None Reported Past Surgical History: Heart Catheterization Additional Past Surgical History / Comment(s): bernardo knee surgery, neck surg Past Psychological History: Anxiety, Depression Smoking Status: Current every day smoker Past Alcohol Use History: Occasional Past Drug Use History: Marijuana - Past Family History family Family Medical History: Cancer, Coronary Artery Disease (CAD), CVA/TIA <Gunnar Álvarez - Last Filed: 02/18/19 17:20> General Exam Limitations: no limitations <JoseronnKeshavGunnar J - Last Filed: 02/18/19 17:20> - General Exam Comments Initial Comments: Constitutional: NAD, AOX3, Pt has pleasant affect. HEENT: NC/AT, trachea midline, neck supple, no lymphadenopathy. Posterior pharynx non erythematous, without exudates. External ears appear normal, without discharge. Mucous membranes moist. Eyes PERRLA, EOM intact. There is no scleral icterus. No pallor noted. Cardiopulmonary: RRR, no murmurs, rubs or gallops, no JVD noted. Lungs CTAB in anterior and posterior crouch. No peripheral edema. Abdominal exam: Abdomen soft and non-distended. Abdomen non-tender to palpation in all 4 quadrants. Bowel sounds active in LLQ. No hepatosplenomegaly. No ecchymosis Neuro: CN II-XII grossly intact. No nuchal rigidity. No raccon eyes, no sal sign, no hemotympanum. No cervical spinal tenderness. MSK: Right wrist mild tenderness to palpation in distal radius region. Full active range of motion of digits, no erythema, drainage or drainable abscess. No cervical thoracic lumbar tenderness to palpation. Straight leg raise positive. No posterior calf tenderness bilaterally, homans sign negative bilaterally. Posterior tibialis and radial pulse +2 bilaterally. Sensation intact in upper and lower extremities. Full active ROM in upper and lower (Gunnar Álvarez) Course Vital Signs 02/17/19 02/18/19 02/18/19 23:30 02:15 03:36 Temperature 98.5 F Pulse Rate 85 68 61 Respiratory 18 18 18 Rate Blood Pressure 109/75 126/74 130/70 O2 Sat by Pulse 98 96 90 L Oximetry 02/18/19 02/18/19 02/18/19 04:10 05:49 07:19 Temperature 97.1 F L 97.1 F L 98.2 F Pulse Rate 58 L 62 56 L Respiratory 17 18 18 Rate Blood Pressure 127/68 126/76 133/90 O2 Sat by Pulse 97 95 95 Oximetry Medical Decision Making - Lab Data Result diagrams: 02/18/19 02:11 02/18/19 02:11 <Terry Russo - Last Filed: 02/18/19 07:01> - Lab Data Result diagrams: 02/18/19 02:11 02/18/19 02:11 - EKG Data -: EKG Interpreted by Nj <Gunnar Álvarez - Last Filed: 02/18/19 17:20> - Medical Decision Making 43-year-old male patient past medical history of diverticulitis, prior kidney stones presents to ED with multiple complaints. Patient he complains that he had to incidences of chest pain while at rest. Patient force of both her substernal stabbing in nature lasting about 5 minutes. Patient denies any radiation of pain. Patient has any associated symptoms including diaphoresis, shortness of breath. Patient states this pain resolved without intervention. Patient secondary complaint included some minor sciatica-like pain in his left material region radiating down his left posterior leg. Patient this feels identical to synptoms he has experienced in the past. Patient denies any recent falls or trauma. Patient has been complaining of mild amount of right wrist pa in. Patient reports that he does get this periodically. 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 Patient denies any recent falls or trauma. Patient denies any other complaints at this time. Patient vital signs stable, afebrile. Physical exam displayed: Right wrist mild tenderness to palpation in distal radius region. Full active range of motion of digits, no erythema, drainage or drainable abscess. No cervical thoracic lumbar tenderness to palpation. Straight leg raise positive. Cardiopulmonary pulmonary exam within normal limits. Laboratory investigations Impressive CBC, CMP, cognition studies. BNP within normal limits. Troponin negative 2. Chest x-ray, wrist x-raydid not display acute process. EKG not concerning for acute ischemia. 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 Patient to use ibuprofen and Tylenol for arthralgia and back pain. Case signed out to and discharged by attending physician Dr. Hodgson. (Gunnar Álvarez) - Lab Data Lab Results 02/18/19 02/18/19 02/18/19 Range/Units 02:11 02:11 02:11 WBC 9.8 (3.8-10.6) k/uL RBC 5.12 (4.30-5.90) m/uL Hgb 15.6 (13.0-17.5) gm/dL Hct 44.3 (39.0-53.0) % MCV 86.5 (80.0-100.0) fL MCH 30.4 (25.0-35.0) pg MCHC 35.2 (31.0-37.0) g/dL RDW 14.1 (11.5-15.5) % Plt Count 174 (150-450) k/uL Neutrophils % 55 % Lymphocytes % 33 % Monocytes % 7 % Eosinophils % 2 % Basophils % 1 % Neutrophils # 5.4 (1.3-7.7) k/uL Lymphocytes # 3.2 (1.0-4.8) k/uL Monocytes # 0.7 (0-1.0) k/uL Eosinophils # 0.2 (0-0.7) k/uL Basophils # 0.1 (0-0.2) k/uL PT (9.0-12.0) sec INR (<1.2) APTT (22.0-30.0) sec Sodium 139 (137-145) mmol/L Potassium 4.3 (3.5-5.1) mmol/L Chloride 105 (98-107) mmol/L Carbon Dioxide 23 (22-30) mmol/L Anion Gap 11 mmol/L BUN 21 H (9-20) mg/dL Creatinine 1.02 (0.66-1.25) mg/dL Est GFR (CKD-EPI)AfAm >90 (>60 ml/min/1.73 sqM) Est GFR (CKD-EPI)NonAf 89 (>60 ml/min/1.73 sqM) Glucose 107 H (74-99) mg/dL Calcium 9.0 (8.4-10.2) mg/dL Magnesium 2.0 (1.6-2.3) mg/dL Total Bilirubin 0.7 (0.2-1.3) mg/dL AST 39 (17-59) U/L ALT 45 (21-72) U/L Alkaline Phosphatase 64 (38-126) U/L Troponin I (0.000-0.034) ng/mL NT-Pro-B Natriuret Pep 22 pg/mL Total Protein 6.6 (6.3-8.2) g/dL Albumin 4.1 (3.5-5.0) g/dL 02/18/19 02/18/19 02/18/19 Range/Units 02:11 02:11 06:07 WBC (3.8-10.6) k/uL RBC (4.30-5.90) m/uL Hgb (13.0-17.5) gm/dL Hct (39.0-53.0) % MCV (80.0-100.0) fL MCH (25.0-35.0) pg MCHC (31.0-37.0) g/dL RDW (11.5-15.5) % Plt Count (150-450) k/uL Neutrophils % % Lymphocytes % % Monocytes % % Eosinophils % % Basophils % % Neutrophils # (1.3-7.7) k/uL Lymphocytes # (1.0-4.8) k/uL Monocytes # (0-1.0) k/uL Eosinophils # (0-0.7) k/uL Basophils # (0-0.2) k/uL PT 10.1 (9.0-12.0) sec INR 0.9 (<1.2) APTT 26.0 (22.0-30.0) sec Sodium (137-145) mmol/L Potassium (3.5-5.1) mmol/L Chloride (98-107) mmol/L Carbon Dioxide (22-30) mmol/L Anion Gap mmol/L BUN (9-20) mg/dL Creatinine (0.66-1.25) mg/dL Est GFR (CKD-EPI)AfAm (>60 ml/min/1.73 sqM) Est GFR (CKD-EPI)NonAf (>60 ml/min/1.73 sqM) Glucose (74-99) mg/dL Calcium (8.4-10.2) mg/dL Magnesium (1.6-2.3) mg/dL Total Bilirubin (0.2-1.3) mg/dL AST (17-59) U/L ALT (21-72) U/L Alkaline Phosphatase (38-126) U/L Troponin I <0.012 <0.012 (0.000-0.034) ng/mL NT-Pro-B Natriuret Pep pg/mL Total Protein (6.3-8.2) g/dL Albumin (3.5-5.0) g/dL - EKG Data EKG Comments: EKG displayed ventricular rate 61, NE interval 170, QRS 102, QT/QTc 422/424. Normal sinus rhythm, normal EKG. No concern for acute ischemia. (Gunnar Álvarez) Disposition Is patient prescribed a controlled substance at d/c from ED?: No <Terry Russo - Last Filed: 02/18/19 07:01> Is patient prescribed a controlled substance at d/c from ED?: No <Gunnar Álvarez - Last Filed: 02/18/19 17:20> Clinical Impression: Chest pain Disposition: HOME SELF-CARE Condition: Good Instructions (If sedation given, give patient instructions): Chest Pain (ED) Referrals: None,Stated [Primary Care Provider] - 1-2 days Evelyn Cash MD [STAFF PHYSICIAN] - 1-2 days
[2019-02-18 05:52] VITALS: RESP 18
[2019-02-18 07:21] VITALS: BP 133/90; PULSE 56; TEMP 98.2
== END 2019-02-18 07:21 | disposition home or self-care (01) ==
LOC: EC 23:10
DX: R07.9 Chest pain, unspecified (principal); M25.531 Pain in right wrist; M54.9 Dorsalgia, unspecified; M79.662 Pain in left lower leg; F17.200 Nicotine dependence, unspecified, uncomplicated; Z95.818 Presence of other cardiac implants and grafts
CPT/HCPCS: 36415; 93005; 83880; 80053; 83735; 84484; 85025; 85610; 85730; 73110; 71046; 99284; 96374; J1885

== ENCOUNTER 2020-02-28 15:19 | Emergency (ER) | payer OTHER ==
[2020-02-28 15:32] VITALS: RESP 18
[2020-02-28] MEDS ORDERED: traMADol 50 MG STARTER PACK 3 TAB BTL PO STA (16:13)
[2020-02-28] MEDS ORDERED: ORPHENADRINE 30 MG/ML 2 ML VIAL IM STA (16:13)
[2020-02-28] MEDS ORDERED: KETOROLAC 60 MG/2 ML VIAL IM STA (16:13)
--- NOTE | 2020-02-28 16:15 | ED ---
Back Pain HPI - General Chief Complaint: Back Pain/Injury Stated Complaint: back pain Time Seen by Provider: 02/28/20 15:51 Source: patient Limitations: no limitations - History of Present Illness Initial Comments: Patient is a 44-year-old male presenting to emergency Department with complaints of lower back pain x 1 day. Patient states he does have history of chronic low back pain but yesterday he went to grab his dog to try to prevent him from running to the door when the dog pulled forward, pulling him forward, and he felt a pulling sensation in his lower back. Patient states he had a hard time sleeping last night secondary to the pain. He states he did try taking Tylenol and Motrin without relief. He denies any bowel or bladder incontinence. He denies any numbness into his extremities. He does have some mild referred pain down to his right leg but states he has does have a history of right-sided sciatica as well. Denies any recent fever, chills. He has no further complaints at this time. - Related Data Home Medications Medication Instructions Recorded Confirmed Ibuprofen [Motrin Ib] 800 mg PO Q6H PRN 07/11/18 07/11/18 Previous Rx's Medication Instructions Recorded Cyclobenzaprine [Flexeril] 5 mg PO BID PRN #10 tablet 02/28/20 Allergies Allergy/AdvReac Type Severity Reaction Status Date / Time No Known Allergies Allergy Verified 02/28/20 15:32 Review of Systems ROS Statement: Those systems with pertinent positive or pertinent negative responses have been documented in the HPI. ROS Other: All systems not noted in ROS Statement are negative. Past Medical History Past Medical History: Chest Pain / Angina Additional Past Medical History / Comment(s): diverticulitis, kidney stone History of Any Multi-Drug Resistant Organisms: None Reported Past Surgical History: Heart Catheterization Additional Past Surgical History / Comment(s): bernardo knee surgery, neck surg Past Psychological History: Anxiety, Depression Smoking Status: Current some day smoker Past Alcohol Use History: Occasional Past Drug Use History: Marijuana - Past Family History family Family Medical History: Cancer, Coronary Artery Disease (CAD), CVA/TIA General Exam - General Exam Comments Initial Comments: GENERAL: Patient is well-developed and well-nourished. Patient is nontoxic and in no acute distress. Patient currently sleeping upon arrival into the room. HEAD: Atraumatic, normocephalic. EYES: Pupils equal round and reactive to light, extraocular movements intact, sclera anicteric, conjunctiva are normal. Eyelids were unremarkable. ENT: TMs normal, nares patent, oropharynx clear without exudates. Moist mucous membranes. NECK: Normal range of motion, supple without lymphadenopathy or JVD. LUNGS: Unlabored respirations. Breath sounds clear to auscultation bilaterally and equal. No wheezes rales or rhonchi. HEART: Regular rate and rhythm without murmurs, rubs or gallops. ABDOMEN: Soft, nontender, normoactive bowel sounds. No guarding, no rebound. No masses appreciated. : Deferred MUSCULOSKELETAL: Normal extremities with adequate strength and normal range of motion, no pitting or edema. No clubbing or cyanosis. Sensation is equal in bilateral lower e xtremities. Patient has some mild pain with palpation of the lumbar paraspinals, right greater than left side. NEUROLOGICAL: Patient is alert and oriented x 3. Motor and sensory are also intact. Cranial nerves II through XII grossly intact. Normal speech, normal gait. Symmetrical smile. PSYCH: Normal mood, normal affect. SKIN: Warm, Dry, normal turgor, no rashes or lesions noted. Limitations: no limitations Course Vital Signs 02/28/20 02/28/20 15:29 16:51 Temperature 98.3 F 98.4 F Pulse Rate 77 82 Respiratory 18 18 Rate Blood Pressure 143/98 137/98 O2 Sat by Pulse 99 96 Oximetry Medical Decision Making - Medical Decision Making Patient is a 44-year-old male here for acute low back pain. He does have a history of chronic low back pain. His exam reveals no acute neuro deficits, no bowel or bladder incontinence. Discussed this is most likely an acute on chronic low back pain. Patient will be given Toradol and muscle relaxant the ER. I will also give him a Tylenol 3 starter pack to go home with. I recommend ed continue with ice, heat, stretching of his low back. Patient is agreement with this plan of care. He is stable for discharge. Return parameters were discussed with the patient he verbalizes understanding. If symptoms persist he will follow up with his PCP. Disposition Clinical Impression: Strain of lumbar region Disposition: HOME SELF-CARE Condition: Stable Instructions (If sedation given, give patient instructions): Acute Low Back Pain (ED) Additional Instructions: Please return to the Emergency Department if symptoms worsen or any other concerns. Continue with heat, gentle stretching to the area. May alternate between Tylenol and Motrin for discomfort. May also try a muscle relaxer at night. Follow up with PCP if symptoms persist. Prescriptions: Cyclobenzaprine [Flexeril] 5 mg PO BID PRN #10 tablet PRN Reason: Muscle Spasm Is patient prescribed a controlled substance at d/c from ED?: No Referrals: Hua Jaramillo MD [Primary Care Provider] - 1-2 days
[2020-02-28 16:52] VITALS: BP 137/98; PULSE 82; TEMP 98.4
== END 2020-02-28 16:52 | disposition home or self-care (01) ==
LOC: EC 15:19
DX: S39.012A Strain of muscle, fascia and tendon of lower back, initial encounter (principal); F17.200 Nicotine dependence, unspecified, uncomplicated; X50.9XXA Other and unspecified overexertion or strenuous movements or postures, initial encounter
CPT/HCPCS: 96372 ×2; 99283; J2360; J1885

== ENCOUNTER 2020-12-27 22:16 | Emergency (ER) | payer OTHER ==
[2020-12-27 22:22] VITALS: BP 160/87; PULSE 91; RESP 20; TEMP 98
[2020-12-27] MEDS ORDERED: LIDOCAINE 1% INJ 10MG/ML (20 ML MDV) SQ ONE (22:44)
[2020-12-27] MEDS ORDERED: SULFAMETH-TMP DS STARTER PACK 2 TAB BTL PO STA (23:20)
--- NOTE | 2020-12-27 23:20 | ED ---
Skin/Abscess/FB HPI - General Chief complaint: Skin/Abscess/Foreign Body Stated complaint: Lump on ABD Time Seen by Provider: 12/27/20 22:28 Source: patient Mode of arrival: ambulatory Limitations: no limitations - History of Present Illness Initial comments: 45 year-old male patient presents to the emergency department today for evaluation of abscess to the right lower abdomen. Patient states the area started as a small bump a couple of days ago. States he did squeeze it and felt a pop. Denies any drainage. States the area has become more painful and swollen. Denies any fever or chills. Denies nausea or vomiting. States he does have a history of MRSA. - Related Data Home Medications Medication Instructions Recorded Confirmed Cyclobenzaprine [Flexeril] 10 mg PO TID 12/27/20 12/27/20 HYDROcodone/APAP 7.5-325MG [[place] 1 tab PO TID 12/27/20 12/27/20 7.5-325] Ibuprofen [Motrin] 800 mg PO TID 12/27/20 12/27/20 Pregabalin [Lyrica] 100 mg PO BID 12/27/20 12/27/20 Topiramate 50 mg PO BID 12/27/20 12/27/20 Previous Rx's Medication Instructions Recorded Sulfamethoxazole/Trimethoprim 1 each PO BID #20 tablet 12/27/20 [Bactrim DS 800-160 mg] Allergies Allergy/AdvReac Type Severity Reaction Status Date / Time cephalexin [From Keflex] AdvReac Vomiting Verified 12/27/20 22:57 Review of Systems ROS Statement: Those systems with pertinent positive or pertinent negative responses have been documented in the HPI. ROS Other: All systems not noted in ROS Statement are negative. Past Medical History Past Medical History: Chest Pain / Angina Additional Past Medical History / Comment(s): diverticulitis, kidney stone History of Any Multi-Drug Resistant Organisms: None Reported Past Surgical History: Heart Catheterization, Orthopedic Surgery Additional Past Surgical History / Comment(s): bernardo knee surgery, neck surg, scopes to abdomen. Past Psychological History: Anxiety, Depression Smoking Status: Current some day smoker Past Alcohol Use History: Occasional Past Drug Use History: Marijuana - Past Family History family Family Medical History: Cancer, Coronary Artery Disease (CAD), CVA/TIA General Exam Limitations: no limitations General appearance: alert, in no apparent distress, other (Physical well- developed, well-nourished adult male patient in no acute distress. Vital signs upon presentation are temperature 98.0F, pulse 91, respirations 20, blood pressure 160/87, pulse ox 98% on room air.) Respiratory exam: Present: normal lung sounds bilaterally. Absent: respiratory distress, wheezes, rales, rhonchi, stridor Cardiovascular Exam: Present: regular rate, normal rhythm, normal heart sounds. Absent: systolic murmur, diastolic murmur, rubs, gallop, clicks GI/Abdominal exam: Present: soft, normal bowel sounds, other ([id number] abscess noted to the right lower abdomen. There is central area of fluctuance. Overlying erythema. No drainage. ). Absent: distended, tenderness, guarding, rebound, r igid Neurological exam: Present: alert, oriented X3, CN II-XII intact Psychiatric exam: Present: normal affect, normal mood Skin exam: Present: warm, dry, intact, normal color. Absent: rash Course Vital Signs 12/27/20 22:18 Temperature 98.0 F Pulse Rate 91 Respiratory 20 Rate Blood Pressure 160/87 O2 Sat by Pulse 98 Oximetry Procedures - [place] Protocol (Time Out) Procedure Performed:: abscess incision and drainage Performing Provider: Clara Rodrigues Nurse: Isreal Marsh Timeout Date: 12/27/20 Timeout Time: 23:15 Patient Identification (2 identifiers required): Verbal, Arm Band, Name, Birthdate Patient/Legal Teletype Operator has Confirmed: Identity, Site, Procedure Site: Abdomen Site Marked: Yes Site Verified With Patient/Guardian: Yes Final Confirmation: Procedure, Site, Patient Position - Incision & Drainage Consent Obtained: verbal consent Indication: abscess Site: abdomen Size (cm): 3 Anesthetic Used: lidocaine 1% Amount (mLs): 4 I&D Cleaning Method: Betadine Scalpel Used: #11 I&D Drainage Obtained: Pus, Blood Culture Obtained?: Yes Patient Tolerated Procedure: well, no complications Medical Decision Making - Medical Decision Making 45-year-old male patient presented to the emergency department today for evaluation of abscess to the right lower abdomen. Physical examination did reveal a 3 cm x 3 cm abscess with central area of fluctuance, overlying erythema. He is afebrile, vital signs. Did perform incision and drainage, culture was obtained. We started on Bactrim. He is instructed to follow-up with his primary care physician for recheck of the area in 1-2 days. Return parameters were discussed in detail. He verbalizes understanding and agrees with this plan. My attending is Dr. Russo. Disposition Clinical Impression: Cutaneous abscess of abdominal wall Disposition: HOME SELF-CARE Condition: Good Additional Instructions: Apply hot compresses over the area 4-5 times daily. Complete antibiotic prescription and full. Follow-up with the primary care physician for recheck in 1-2 days. Return to the emergency department for any new, worsening, or concerning symptoms. Prescriptions: Sulfamethoxazole/Trimethoprim [Bactrim DS 800-160 mg] 1 each PO BID #20 tablet Is patient prescribed a controlled substance at d/c from ED?: No Referrals: Hua Jaramillo MD [Primary Care Provider] - 1-2 days Time of Disposition: 23:20
== END 2020-12-27 23:42 | disposition home or self-care (01) ==
LOC: EC 22:16
DX: L02.211 Cutaneous abscess of abdominal wall (principal); F41.9 Anxiety disorder, unspecified; F32.9 Major depressive disorder, single episode, unspecified; F12.90 Cannabis use, unspecified, uncomplicated; F17.200 Nicotine dependence, unspecified, uncomplicated; Z87.442 Personal history of urinary calculi; Z79.1 Long term (current) use of non-steroidal anti-inflammatories (NSAID); Z79.899 Other long term (current) drug therapy
CPT/HCPCS: 87070; 87205; 99282; 10060; J2001

== ENCOUNTER 2021-01-03 20:49 | Observation (INO) | payer OTHER ==
[2021-01-03] MEDS ORDERED: KETOROLAC 15 MG/ML 1 ML VIAL IVP STA (21:30)
[2021-01-03] MEDS ORDERED: LIDOCAINE 1% INJ 10MG/ML (20 ML MDV) SQ ONE (21:30)
[2021-01-03] MEDS ORDERED: SODIUM CHLORIDE 0.9% 500 ML 500 ML IV ONE (21:30)
--- NOTE | 2021-01-03 21:37 | ED ---
Skin/Abscess/FB HPI - General Chief complaint: Skin/Abscess/Foreign Body Stated complaint: Abscess Time Seen by Provider: 01/03/21 21:19 Source: patient Mode of arrival: wheelchair Limitations: no limitations - History of Present Illness Initial comments: 45 year-old male patient presents to the emergency department for evaluation of abscess to the left lower abdomen. Patient states that he had an abscess drained on the right side about a week ago, has been on antibiotics. States that this morning noticed another one on the left. States that it is painful to touch. Denies any drainage. States that he called his doctor and was told to come in right away for evaluation. He denies any fever, chills, vomiting. Denies history of abscess or diabetes. Denies any IV drug use. Patient denies any recent rash, cough, shortness of breath, chest pain, abdominal pain, nausea, vomiting, diarrhea, constipation, back pain, numbness, tingling, dizziness, weakness, hematuria, dysuria, urinary urgency, urinary frequency, headache, visual changes, or any other complaints. - Related Data Home Medications Medication Instructions Recorded Confirmed Cyclobenzaprine [Flexeril] 10 mg PO TID PRN 12/27/20 01/03/21 HYDROcodone/APAP 7.5-325MG [[place] 1 tab PO TID PRN 12/27/20 01/03/21 7.5-325] Ibuprofen [Motrin] 800 mg PO TID PRN 12/27/20 01/03/21 Pregabalin [Lyrica] 100 mg PO BID 12/27/20 01/03/21 Topiramate 50 mg PO BID 12/27/20 01/03/21 Sulfamethoxazole/Trimethoprim 1 tab PO BID 01/03/21 01/03/21 [Bactrim DS 800-160 mg] Allergies Allergy/AdvReac Type Severity Reaction Status Date / Time cephalexin [From Keflex] AdvReac Vomiting Verified 01/03/21 23:35 Review of Systems ROS Statement: Those systems with pertinent positive or pertinent negative responses have been documented in the HPI. ROS Other: All systems not noted in ROS Statement are negative. Past Medical History Past Medical History: Chest Pain / Angina Additional Past Medical History / Comment(s): diverticulitis, kidney stone History of Any Multi-Drug Resistant Organisms: None Reported Past Surgical History: Heart Catheterization, Orthopedic Surgery Additional Past Surgical History / Comment(s): bernardo knee surgery, neck surg, scopes to abdomen. Past Psychological History: Anxiety, Depression Smoking Status: Current some day smoker Past Alcohol Use History: Occasional Past Drug Use History: Marijuana - Past Family History family Family Medical History: Cancer, Coronary Artery Disease (CAD), CVA/TIA General Exam Limitations: no limitations General appearance: alert, in no apparent distress, other (Social well- developed, well-nourished adult male patient in no acute distress. Vital signs upon presentation are temperature 98.0F, pulse 82, respirations 20, blood pressure 116/60, pulse ox 95% on room air.) Respiratory exam: Present: normal lung sounds bilaterally. Absent: respiratory distress, wheezes, rales, rhonchi, stridor Cardiovascular Exam: Present: regular rate, normal rhythm, normal heart sounds. Absent: systolic murmur, diastolic murmur, rubs, gallop, clicks GI/Abdominal exam: Present: soft, normal bowel sounds, other (There is 3cm abscess noted to the left lower abdomen with extensive surrounding cellulitis, central area of fluctuance.). Absent: distended, tenderness, guarding, rebound, rigid Neurological exam: Present: alert, oriented X3, CN II-XII intact Psychiatric exam: Present: normal affect, normal mood Skin exam: Present: warm, dry, intact, normal color. Absent: rash Course Vital Signs 01/03/21 01/03/21 21:10 23:12 Temperature 98.0 F 98 F Pulse Rate 82 70 Respiratory 20 18 Rate Blood Pressure 116/60 122/72 O2 Sat by Pulse 95 98 Oximetry Procedures - Incision & Drainage Consent Obtained: written consent Indication: abscess Site: abdomen Size (cm): 3 Anesthetic Used: lidocaine 1% Amount (mLs): 3 I&D Cleaning Method: Betadine Scalpel Used: #11 I&D Drainage Obtained: Pus, Blood Culture Obtained?: Yes Patient Tolerated Procedure: well, no complications Medical Decision Making - Medical Decision Making 45-year-old male patient presents to the emergency department today for evaluation of abscess to the left lower abdomen. Physical examination did reveal a 3 cm abscess with surrounding erythema consistent with cellulitis. He did have an abscess incised and drained on the right side about a week ago has been taking Bactrim. Denies any fever or chills. Denies nausea or vomiting. Labs reviewed and did reveal normal white blood cell count. We'll culture the abscess after incision and drainage. He'll be started on IV antibiotics and admitted to the hospital for cellulitis. He is agreeable to this plan. Case discussed with my attending Dr. Watson. - Lab Data Result diagrams: 01/03/21 21:49 01/03/21 21:49 Lab Results 01/03/21 01/03/21 01/03/21 Range/Units 21:49 21:49 21:49 WBC 9.0 (3.8-10.6) k/uL RBC 4.83 (4.30-5.90) m/uL Hgb 14.9 (13.0-17.5) gm/dL Hct 42.4 (39.0-53.0) % MCV 87.8 (80.0-100.0) fL MCH 30.8 (25.0-35.0) pg MCHC 35.1 (31.0-37.0) g/dL RDW 12.4 (11.5-15.5) % Plt Count 158 (150-450) k/uL MPV 9.7 Neutrophils % 60 % Lymphocytes % 30 % Monocytes % 7 % Eosinophils % 2 % Basophils % 1 % Neutrophils # 5.3 (1.3-7.7) k/uL Lymphocytes # 2.7 (1.0-4.8) k/uL Monocytes # 0.6 (0-1.0) k/uL Eosinophils # 0.2 (0-0.7) k/uL Basophils # 0.0 (0-0.2) k/uL Sodium 140 (137-145) mmol/L Potassium 3.9 (3.5-5.1) mmol/L Chloride 110 H (98-107) mmol/L Carbon Dioxide 21 L (22-30) mmol/L Anion Gap 9 mmol/L BUN 19 (9-20) mg/dL Creatinine 1.24 (0.66-1.25) mg/dL Est GFR (CKD-EPI)AfAm 81 (>60 ml/min/1.73 sqM) Est GFR (CKD-EPI)NonAf 70 (>60 ml/min/1.73 sqM) Glucose 115 H (74-99) mg/dL Plasma Lactic Acid [place] 1.1 (0.7-2.0) mmol/L Calcium 9.1 (8.4-10.2) mg/dL Total Bilirubin 0.6 (0.2-1.3) mg/dL AST 31 (17-59) U/L ALT 34 (4-49) U/L Alkaline Phosphatase 66 (38-126) U/L Total Protein 6.5 (6.3-8.2) g/dL Albumin 4.1 (3.5-5.0) g/dL Disposition Clinical Impression: Abdominal wall abscess, Cellulitis of abdominal wall Disposition: ADMITTED IP TO THIS [facility] Condition: Serious Decision to Admit Reason: Admit from EC Decision Date: 01/03/21 Decision Time: 23:24
[2021-01-03 22:06] LABS: Basophils % (A) 1 %; Eosinophils # (A) 0.2 k/uL (0-0.7); Eosinophils % (A) 2 %; HCT 42.4 % (39.0-53.0); HGB 14.9 gm/dL (13.0-17.5); Lymphocytes # (A) 2.7 k/uL (1.0-4.8); Lymphocytes % (A) 30 %; MCH 30.8 pg (25.0-35.0); MCHC 35.1 g/dL (31.0-37.0); MCV 87.8 fL (80.0-100.0); Mean Platelet Volume 9.7; Monocytes # (A) 0.6 k/uL (0-1.0); Monocytes % (A) 7 %; Neutrophils # (A) 5.3 k/uL (1.3-7.7); Neutrophils % (A) 60 %; Platelet Count 158 k/uL (150-450); RBC 4.83 m/uL (4.30-5.90); RDW 12.4 % (11.5-15.5)
[2021-01-03 22:20] LABS: Albumin 4.1 g/dL (3.5-5.0); Calcium 9.1 mg/dL (8.4-10.2); Potassium 3.9 mmol/L (3.5-5.1); Total Bilirubin 0.6 mg/dL (0.2-1.3); Total Protein 6.5 g/dL (6.3-8.2)
[2021-01-03] MEDS ORDERED: HYDROcodone/APAP 7.5-325MG 1 EACH TAB PO ONE (23:15)
[2021-01-03] MEDS ORDERED: CYCLOBENZAPRINE 10 MG TAB PO STA (23:15)
[2021-01-03] MEDS ORDERED: TOPIRAMATE 25 MG TAB PO STA (23:15)
[2021-01-03] MEDS ORDERED: PREGABALIN 75 MG CAP PO STA (23:15)
[2021-01-03] MEDS ORDERED: NALOXONE 0.4 MG/ML 1 ML VIAL IV PRN (23:16)
[2021-01-03] MEDS ORDERED: VANCOMYCIN IV PER PHARMACY 1 EACH MISC MISCELLANE PRN (23:50)
[2021-01-03] MEDS ORDERED: AMPICILLIN-SULBACTAM 3 GM in SODIUM CHLORIDE 0.9% 100 ML IVPB STA (23:50)
[2021-01-04] MEDS ORDERED: AMPICILLIN-SULBACTAM 3 GM in SODIUM CHLORIDE 0.9% 100 ML IVPB SCH ×2
[2021-01-04] MEDS ORDERED: AMPICILLIN-SULBACTAM 3 GM in SODIUM CHLORIDE 0.9% 100 ML IVPB ONE ×2 (00:10→00:45)
[2021-01-04] MEDS ORDERED: VANCOMYCIN 2,500 MG in SODIUM CHLORIDE 0.9% 500 ML 500 ML IVPB ONE (00:30)
[2021-01-04 05:33] LABS: Basophils % (A) 0 %; Eosinophils # (A) 0.2 k/uL (0-0.7); Eosinophils % (A) 2 %; HCT 40.4 % (39.0-53.0); HGB 13.9 gm/dL (13.0-17.5); Lymphocytes % (A) 37 %; MCH 30.6 pg (25.0-35.0); MCHC 34.3 g/dL (31.0-37.0); MCV 89.3 fL (80.0-100.0); Mean Platelet Volume 9.9; Monocytes # (A) 0.7 k/uL (0-1.0); Monocytes % (A) 8 %; Neutrophils # (A) 4.2 k/uL (1.3-7.7); Neutrophils % (A) 51 %; Platelet Count 163 k/uL (150-450); RBC 4.52 m/uL (4.30-5.90); RDW 12.4 % (11.5-15.5); WBC 8.2 k/uL (3.8-10.6)
[2021-01-04] MEDS: AMPICILLIN-SULBACTAM 3 GM in SODIUM CHLORIDE 0.9% 100 ML IVPB SCH ×2 (08:00→15:52)
[2021-01-04] MEDS ORDERED: VANCOMYCIN 2,000 MG in SODIUM CHLORIDE 0.9% 500 ML 500 ML IVPB SCH (09:00)
[2021-01-04] MEDS: HYDROcodone/APAP 7.5-325MG 1 EACH TAB PO PRN ×2 (10:07→20:55)
[2021-01-04] MEDS: HEPARIN SODIUM,PORCINE/PF 5,000 UNIT/0.5 ML SYRINGE SQ SCH ×2 (10:08→20:55)
[2021-01-04] MEDS: FAMOTIDINE 20 MG/2 ML VIAL IV SCH ×2 (10:08→20:56)
[2021-01-04] MEDS: TOPIRAMATE 25 MG TAB PO SCH ×2 (10:08→23:01)
[2021-01-04] MEDS: VANCOMYCIN 2,500 MG in SODIUM CHLORIDE 0.9% 500 ML 500 ML IVPB SCH ×2 (10:09→17:40)
[2021-01-04] MEDS: PREGABALIN 100 MG CAP PO SCH ×2 (10:36→20:56)
--- NOTE | 2021-01-04 10:59 | P.HPIM ---
History of Present Illness This is a pleasant 45 years old male with past medical history of kidney stone and diverticulitis, anxiety and depression. He follows up with Dr. Ortega as an outpatient clinic. Presents because of multiple abdominal abscess. Patient first came on 12/27 for a small bump less than an inch in diameter in his right lower abdomen secondary to cutaneous or subcutaneous abscess, he has a history of MRSA survey was treated with I&D and discharged on Bactrim with recommendation to follow up with primary care doctor. Culture grew only normal skin diana. This time he presents with a similar abscesses but on the left lower quadrant [place] right lower quadrant abscess looks better although there is still subcutaneous lump on the right lower quadrant. Also there is some surrounding erythema and tenderness with minimal swelling He denies smoking, alcohol or illicit drugs Patient is afebrile. Labs are unremarkable including CBC, BMP and liver enzymes. Glucose is slightly up at 115. Coronal flap is not detected. On admission patient was started on Unasyn and vancomycin. Wound culture has been sent. MAPS was checked and he is on [place] 7.5 mg 3 times a day and lyrica As well Review of Systems CONSTITUTIONAL: No fever, no malaise, no fatigue. HEENT: No recent visual problems or hearing problems. Denied any sore throat. CARDIOVASCULAR: No orthopnea, PND, no palpitations, no syncope. PULMONARY: No shortness of breath, no cough, no hemoptysis. GASTROINTESTINAL: No diarrhea, no nausea, no vomiting, no abdominal pain. Normoactive bowel sounds. NEUROLOGICAL: No headaches, no weakness, no numbness. HEMATOLOGICAL: Denies any bleeding or petechiae. GENITOURINARY: Denies any burning micturition, frequency, or urgency. MUSCULOSKELETAL/RHEUMATOLOGICAL: Denies any joint pain, swelling, or any muscle pain. ENDOCRINE: Denies any polyuria or polydipsia. Past Medical History Past Medical History: Chest Pain / Angina Additional Past Medical History / Comment(s): diverticulitis, kidney stone History of Any Multi-Drug Resistant Organisms: None Reported Past Surgical History: Heart Catheterization, Orthopedic Surgery Additional Past Surgical History / Comment(s): bernardo knee surgery, neck surg, scopes to abdomen. Past Psychological History: Anxiety, Depression Smoking Status: Current some day smoker Past Alcohol Use History: Occasional Past Drug Use History: Marijuana - Past Family History family Family Medical History: Cancer, Coronary Artery Disease (CAD), CVA/TIA Father Family Medical History: Diabetes Mellitus Additional Family Medical History / Comment(s): ETOH abuse. Father is . Mother Family Medical History: Cancer Additional Family Medical History / Comment(s): Mother passed from cancer-pt does not know type. Medications and Allergies Home Medications Medication Instructions Recorded Confirmed Type Cyclobenzaprine [Flexeril] 10 mg PO TID PRN 12/27/20 01/03/21 History HYDROcodone/APAP 7.5-325MG [[place] 1 tab PO TID PRN 12/27/20 01/03/21 History 7.5-325] Ibuprofen [Motrin] 800 mg PO TID PRN 12/27/20 01/03/21 History Pregabalin [Lyrica] 100 mg PO BID 12/27/20 01/03/21 History Topiramate 50 mg PO BID 12/27/20 01/03/21 History Sulfamethoxazole/Trimethoprim 1 tab PO BID 01/03/21 01/03/21 History [Bactrim DS 800-160 mg] Allergies Allergy/AdvReac Type Severity Reaction Status Date / Time cephalexin [From Keflex] AdvReac Vomiting Verified 01/03/21 23:35 Physical Exam Vitals: Vital Signs Temp Pulse Resp BP Pulse Ox 01/04/21 03:05 98.1 F 70 17 120/69 100 01/03/21 23:12 98 F 70 18 122/72 98 01/03/21 21:10 98.0 F 82 20 116/60 95 Intake and Output 01/03/21 01/04/21 01/04/21 22:59 06:59 14:59 Other: Weight 208.652 kg -GENERAL: The patient is alert and oriented x3, not in any acute distress. Morbidly obese HEENT: Pupils are round and equally reacting to light. EOMI. No scleral icterus. No conjunctival pallor. Normocephalic, atraumatic. No pharyngeal erythema. No thyromegaly. CARDIOVASCULAR: S1 and S2 present. No murmurs, rubs, or gallops. PULMONARY: Chest is clear to auscultation, no wheezing or crackles. ABDOMEN: Soft, nontender, nondistended, normoactive bowel sounds. No palpable organomegaly. MUSCULOSKELETAL: No joint swelling or deformity. EXTREMITIES: No cyanosis, clubbing, or pedal edema. NEUROLOGICAL: Gross neurological examination did not reveal any focal deficits. SKIN: No rashes. No petechiae Results CBC & Chem 7: 01/04/21 04:23 01/03/21 21:49 Labs: Abnormal Lab Results - Last 24 Hours (Table) 01/03/21 Range/Units 21:49 Chloride 110 H (98-107) mmol/L Carbon Dioxide 21 L (22-30) mmol/L Glucose 115 H (74-99) mg/dL Assessment and Plan Assessment: Multiple skin abdominal abscesses. History of kidney stones History of anxiety and depression, not an active issue History of diverticulitis Morbidly obese with BMI of 54.5 Plan: This is a pleasant 45 years old male who presents with abdominal abscess. Continue with antibiotic. Consult infectious disease team. Monitor closely Labs and medication were reviewed.. Continue same treatment. Continue with symptomatic treatment. Resume home medication. Monitor lytes and vitals. DVT and GI prophylaxis. Further recommendations depends on the clinical course of the patient DVT prophylaxis: Subcutaneous heparin GI Prophylaxis: Pepcid
--- NOTE | 2021-01-04 16:31 | CONS ---
CONSULTATION DATE OF SERVICE: 01/04/2021 REASON FOR CONSULTATION: Abdominal wall cellulitis. HISTORY OF PRESENT ILLNESS: The patient is a 45-year-old morbidly obese male who presented to [facility] with left lower abdominal pain redness that apparently started last night. The patient mentioned he was in the ER about a week ago when he developed a similar area on the right lower abdominal area. The patient did have I and D done here in the ER and subsequently with oral Bactrim DS and that area seems to have resolved. Now he has noticed another area involving the left lower abdominal area. He denies any history of any trauma. He is complaining of pain to the left lower abdominal area to be more of a throbbing and aching, intensity 4 to 5 out of 10 and no radiation. He did have some blood-stained drainage. The patient denies having any fever or any chills. The patient denies having any chest pain, shortness of breath or cough. No vomiting, though, and no diarrhea. The patient has been evaluated by the ER physician. He did have cultures obtained from the site. He was started on vancomycin and Unasyn. Infectious Disease was consulted for further management of antibiotic therapy. REVIEW OF SYSTEMS: Positive points have been mentioned in the HPI. Rest of the systems are negative. PAST MEDICAL HISTORY: Significant for morbid obesity, history of kidney stone, diverticulitis, abdominal wall abscess and cellulitis. PAST SURGICAL HISTORY: Bilateral knee surgery, heart catheterization. SOCIAL HISTORY: Current everyday smoker. Occasionally drinks. Does admit to marijuana use. FAMILY HISTORY: Father with history of coronary artery disease, CVA, TIA and cancer. ALLERGIES: CEPHALEXIN. MEDICATIONS: The patient is currently on [place], Unasyn 3 grams q.8. He is on Flexeril, Pepcid, vancomycin, Pharmacy to dose, Narcan, Lyrica, Topamax. PHYSICAL EXAMINATION: Blood pressure 120/69 with a pulse of 70, temperature 98.1. He is 100% on room air. General description is a middle-aged male lying in bed in no distress. HEENT: Examination shows no pallor or scleral icterus. Oral mucous membrane is dry. NECK: Trachea is central. No thyromegaly. LUNGS: Unlabored breathing. Clear to auscultation anteriorly. No wheeze or crackle. HEART: S1, S2. Regular rate and rhythm. ABDOMEN: Soft. Left lower abdominal wall did have slight area of swelling, redness, some blood-stained drainage. No purulence was noticed. EXTREMITIES: No edema of the feet. SKIN EXAMINATION: No rash or mass palpable. Neurologically the patient is awake, alert, oriented x3. Mood and affect normal. LABS: Hemoglobin 13.1, white count 8.2, BUN of 19, creatinine 1.24. [place] PCR was negative. DIAGNOSTIC IMPRESSION AND PLAN: 1. Patient with abdominal wall cellulitis in this patient who did have an area of irritation which is more likely a small area of bleeding blood vessels with no significant induration or concern for underlying deep abscess. 2. Patient with CEPHALEXIN ALLERGY. That will limit the number of antibiotics safe to use. PLAN: 1. Patient to continue with vancomycin and Unasyn while waiting for the culture to finalize and monitor his kidney function closely. 2. Local wound care with dry Aquacel Silver dressing. 3. Will follow clinical condition and further adjust medication if needed. Thank you for this consultation. Will follow this patient along with you. MMODL / IJN: [id number] /
[2021-01-04] MEDS: CYCLOBENZAPRINE 10 MG TAB PO PRN (20:55)
[2021-01-05] MEDS: AMPICILLIN-SULBACTAM 3 GM in SODIUM CHLORIDE 0.9% 100 ML IVPB SCH ×3 (00:26→15:22)
[2021-01-05] MEDS: VANCOMYCIN 2,500 MG in SODIUM CHLORIDE 0.9% 500 ML 500 ML IVPB SCH ×2 (02:06→08:48)
[2021-01-05 02:47] VITALS: RESP 18
[2021-01-05] MEDS: HYDROcodone/APAP 7.5-325MG 1 EACH TAB PO PRN ×3 (04:49→21:52)
[2021-01-05] MEDS: CYCLOBENZAPRINE 10 MG TAB PO PRN (04:49)
[2021-01-05] MEDS: HEPARIN SODIUM,PORCINE/PF 5,000 UNIT/0.5 ML SYRINGE SQ SCH ×2 (07:52→21:52)
[2021-01-05] MEDS: PREGABALIN 100 MG CAP PO SCH ×2 (07:52→21:52)
[2021-01-05] MEDS: TOPIRAMATE 25 MG TAB PO SCH ×2 (07:53→21:52)
[2021-01-05] MEDS: FAMOTIDINE 20 MG/2 ML VIAL IV SCH ×2 (07:53→21:52)
--- NOTE | 2021-01-05 11:59 | P.PN ---
Subjective This is a pleasant 45 years old male with past medical history of kidney stone and diverticulitis, anxiety and depression. He follows up with Dr. Ortega as an outpatient clinic. Presents because of multiple abdominal abscess. Patient first came on 12/27 for a small bump less than an inch in diameter in his right lower abdomen secondary to cutaneous or subcutaneous abscess, he has a history of MRSA survey was treated with I&D and discharged on Bactrim with recommendation to follow up with primary care doctor. Culture grew only normal skin diana. This time he presents with a similar abscesses but on the left lower quadrant Leesa right lower quadrant abscess looks better although there is still subcutaneous lump on the right lower quadrant. Also there is some surrounding erythema and tenderness with minimal swelling He denies smoking, alcohol or illicit drugs Patient is afebrile. Labs are unremarkable including CBC, BMP and liver enz ymes. Glucose is slightly up at 115. Coronal flap is not detected. On admission patient was started on Unasyn and vancomycin. Wound culture has been sent. MAPS was checked and he is on Tucker 7.5 mg 3 times a day and lyrica As w 01/05/2021 Patient admitted yesterday with left lower about 1 inch abdominal wall skin abscess, did not think he will need I&D, today looks the same. Leesa change in his vitals and lap test, his CBC is completely normal. Wound culture is pending Patient currently covered with Unasyn and IV vancomycin. ID team on the case Objective - Vital Signs Vital signs: Vital Signs Temp 97.6 F 01/05/21 07:00 Pulse 63 01/05/21 07:00 Resp 18 01/05/21 07:00 BP 162/87 01/05/21 07:00 Pulse Ox 98 01/05/21 07:00 Intake & Output 01/04/21 01/05/21 01/05/21 18:59 06:59 18:59 Intake Total 480 Balance 480 Weight 208.652 kg Intake: Oral 480 Other: Voiding Method Toilet # Voids 1 1 - Exam -GENERAL: The patient is alert and oriented x3, not in any acute distress. Morbidly obese HEENT: Pupils are round and equally reacting to light. EOMI. No scleral icterus. No conjunctival pallor. Normocephalic, atraumatic. No pharyngeal erythema. No thyromegaly. CARDIOVASCULAR: S1 and S2 present. No murmurs, rubs, or gallops. PULMONARY: Chest is clear to auscultation, no wheezing or crackles. ABDOMEN: Soft, nontender, nondistended, normoactive bowel sounds. No palpable organomegaly. MUSCULOSKELETAL: No joint swelling or deformity. EXTREMITIES: No cyanosis, clubbing, or pedal edema. NEUROLOGICAL: Gross neurological examination did not reveal any focal deficits. SKIN: No rashes. No petechiae - Labs CBC & Chem 7: 01/04/21 04:23 01/03/21 21:49 Labs: Microbiology - Last 24 Hours (Table) 01/03/21 21:50 Blood Culture - Preliminary Blood No Growth after 24 hours 01/03/21 21:49 Gram Stain - Preliminary Abdomen Wound Culture - Preliminary Assessment and Plan Assessment: Multiple skin abdominal abscesses. History of kidney stones History of anxiety and depression, not an active issue History of diverticulitis Morbidly obese with BMI of 54.5 Plan: This is a pleasant 45 years old male who presents with abdominal abscess. Continue with antibiotic. Consult infectious disease team. Monitor closely Labs and medication were reviewed.. Continue same treatment. Continue with symptomatic treatment. Resume home medication. Monitor lytes and vitals. DVT and GI prophylaxis. Further recommendations depends on the clinical course of the patient DVT prophylaxis: Subcutaneous heparin GI Prophylaxis: Pepcid
[2021-01-05 16:48] LABS: African American GFR (CKD) >90 (>60 ml/min/1.73 sqM); Non-African American GFR(CKD) 88 (>60 ml/min/1.73 sqM)
--- NOTE | 2021-01-05 17:20 | PN ---
PROGRESS NOTE DATE OF SERVICE: 01/05/2021 REASON FOR FOLLOWUP: Abdominal wall cellulitis. INTERVAL HISTORY: The patient is currently afebrile. He is breathing comfortably. The patient denies having any chest pain, no shortness of breath or cough. Abdominal area no worsening pain or any drainage. PHYSICAL EXAMINATION: Blood pressure is 142/92 with a pulse of 70, temperature 98. He is 100% on room air. General description is a middle-aged male lying in bed in no distress. Respiratory system: Unlabored breathing, clear to auscultation anteriorly. Heart S1, S2. Regular rate and rhythm. ABDOMEN: Soft. Abdominal wall is currently dressed. Overall redness has slightly decreased. LABS: Hemoglobin 13.1, white count 8.2. Cultures have been pending so far. DIAGNOSTIC IMPRESSION AND PLAN: Patient with abdominal wall cellulitis with small area rash as far as drainage. Those cultures currently pending. Patient is covered with Unasyn and vanco, adjusting it further based on culture report. Continue supportive care. MMODL / IJN: [id number] /
[2021-01-05] MEDS ORDERED: VANCOMYCIN TROUGH DUE 1 EACH MISC MISCELLANE ONE (18:00)
[2021-01-05] MEDS ORDERED: VANCOMYCIN 2,500 MG in SODIUM CHLORIDE 0.9% 500 ML 500 ML IVPB SCH (19:00)
[2021-01-05] MEDS: VANCOMYCIN 2,250 MG in SODIUM CHLORIDE 0.9% 500 ML 500 ML IVPB SCH (21:52)
[2021-01-06] MEDS: AMPICILLIN-SULBACTAM 3 GM in SODIUM CHLORIDE 0.9% 100 ML IVPB SCH ×2 (00:58→07:47)
[2021-01-06] MEDS: CYCLOBENZAPRINE 10 MG TAB PO PRN (00:58)
[2021-01-06] MEDS: VANCOMYCIN 2,250 MG in SODIUM CHLORIDE 0.9% 500 ML 500 ML IVPB SCH ×2 (04:09→11:43)
[2021-01-06] MEDS: FAMOTIDINE 20 MG/2 ML VIAL IV SCH (07:47)
[2021-01-06] MEDS: HEPARIN SODIUM,PORCINE/PF 5,000 UNIT/0.5 ML SYRINGE SQ SCH (07:47)
[2021-01-06] MEDS: HYDROcodone/APAP 7.5-325MG 1 EACH TAB PO PRN (07:47)
[2021-01-06] MEDS: PREGABALIN 100 MG CAP PO SCH (07:48)
[2021-01-06] MEDS: TOPIRAMATE 25 MG TAB PO SCH (07:48)
[2021-01-06 14:39] VITALS: BP 174/98; PULSE 74; TEMP 97.6
--- NOTE | 2021-01-06 15:59 | PN ---
PROGRESS NOTE DATE OF SERVICE: 01/06/2021 REASON FOR FOLLOWUP: Left lower abdominal wall abscess, cellulitis. INTERVAL HISTORY: The patient is currently afebrile. The patient is feeling better. The patient denies having any chest pain or shortness of breath or cough. Abdominal pain is currently controlled. No vomiting or diarrhea. PHYSICAL EXAMINATION: Blood pressure 141/84 with a pulse of 52, temperature 97.5. He is 100% on room air. General description is a middle-aged male up in the room in no distress. RESPIRATORY SYSTEM: Unlabored breathing. Clear to auscultation anteriorly. HEART: S1, S2. Regular rate and rhythm. ABDOMEN: Soft. Lower abdominal wall swelling and redness have improved. Minimal drainage. LABS: Culture has been negative for any resistant pathogen. DIAGNOSTIC IMPRESSION AND PLAN: Patient with left abdominal wall cellulitis with spontaneous drainage. Culture negative for resistant pathogen. He will finish therapy with a short course of oral Bactrim DS on for about a week and close outpatient followup. MMODL / IJN: [id number] /
[2021-01-06] MEDS ORDERED: FAMOTIDINE 20 MG TAB PO SCH (21:00)
--- NOTE | 2021-01-07 | P.DS ---
Providers Date of admission: 01/04/21 09:11 Attending physician: Nelly Carlson Consults: 01/04/21 07:56 Consult Physician Routine Consulting Provider: Kingsley Owens Consult Reason/Comments: skin abscess Do you want consulting provider notified?: Yes Primary care physician: Hua Jaramillo Hospital Course: Diagnoses: Left lower quadrant skin with surrounding cellulitis, improving. Recent history of right lower quadrant abdominal abscess, healed History of kidney stones History of anxiety and depression, not an active issue History of diverticulitis Morbidly obese with BMI of 54.5 Hospital course: This is a pleasant 45 years old male with past medical history of kidney stone and diverticulitis, anxiety and depression. He follows up with Dr. Ortega as an outpatient clinic. Presents because of left lower quadrant abdominal abscess about 1 inch in diameter with surrounding cellulitis. Patient was treated with Unasyn and IV vancomycin. Wound culture came back with no growth. Clinically patient improved and abscess healing. Patient denies any other complaints with no fever, no sepsis Patient was eager to discharge home since yesterday Patient was cleared for discharge by infectious disease team Patient will be discharged on Bactrim for one week per ID recommendation Problems and management plan were discussed with the patient and he verbalized understanding and acceptance Patient was found stable and can be discharged home however he needs follow-up as an outpatient. Patient was instructed to follow up with PCP within one week and patient agrees Gen: patient is a AAOx3, no distress CVS: S1-S2, RRR, no murmur Lungs: B/L CTA, no wheezing -Abdomen: soft, no distention, no tenderness, positive bowel sounds. Healing 1 inch left lower abdomen abscess with improvement surrounding cellulitis Extremity: no leg edema or induration Time spent more than 35 minutes Patient Condition at Discharge: Serious Plan - Discharge Summary Discharge Rx Participant: No New Discharge Prescriptions: New Sulfamethox-Tmp 800-160Mg [Bactrim DS 800-160 mg] 1 tab PO Q12HR 7 Days #14 tab Continue Pregabalin [Lyrica] 100 mg PO BID Cyclobenzaprine [Flexeril] 10 mg PO TID PRN PRN Reason: Pain Topiramate 50 mg PO BID HYDROcodone/APAP 7.5-325MG [[place] 7.5-325] 1 tab PO TID PRN PRN Reason: Pain Discontinued Ibuprofen [Motrin] 800 mg PO TID PRN PRN Reason: Pain Sulfamethoxazole/Trimethoprim [Bactrim DS 800-160 mg] 1 tab PO BID Discharge Medication List Cyclobenzaprine [Flexeril] 10 mg PO TID PRN 12/27/20 [History] HYDROcodone/APAP 7.5-325MG [[place] 7.5-325] 1 tab PO TID PRN 12/27/20 [History] Pregabalin [Lyrica] 100 mg PO BID 12/27/20 [History] Topiramate 50 mg PO BID 12/27/20 [History] Sulfamethox-Tmp 800-160Mg [Bactrim DS 800-160 mg] 1 tab PO Q12HR 7 Days #14 tab 01/06/21 [Rx] Follow up Appointment(s)/Referral(s): Hua Jaramillo MD [Primary Care Provider] - 1-2 days (Client requested to make his own appt with PCP.) Kingsley Owens MD [STAFF PHYSICIAN] - 01/18/21 3:00 pm (Does not see patients in the morning) Patient Instructions/Handouts: Cellulitis (DC), Acute Wound Care (DC) Activity/Diet/Wound Care/Special Instructions: regular diet activity is restricted till you see your doctor Discharge Disposition: HOME SELF-CARE
== END 2021-01-06 16:04 | disposition home or self-care (01) ==
LOC: EC 20:49 → 6NMEDSUR 22:51 → INTOOBSV 01-04 09:11 → OBSVTOIN 01-04 09:11 → 4SSUR 01-04 09:50 → UNDODISIN 01-06 16:04
PROVIDERS: ADMIT Hospitalist; ATTEND Hospitalist
DX: L03.311 Cellulitis of abdominal wall (principal); E66.01 Morbid (severe) obesity due to excess calories; Z68.43 Body mass index [BMI] 50.0-59.9, adult; Z86.59 Personal history of other mental and behavioral disorders; Z87.19 Personal history of other diseases of the digestive system; Z86.14 Personal history of Methicillin resistant Staphylococcus aureus infection; R21 Rash and other nonspecific skin eruption; F17.200 Nicotine dependence, unspecified, uncomplicated; Z20.822 Contact with and (suspected) exposure to COVID-19; Z79.899 Other long term (current) drug therapy; Z88.1 Allergy status to other antibiotic agents; Z87.442 Personal history of urinary calculi; Z83.3 Family history of diabetes mellitus; Z82.49 Family history of ischemic heart disease and other diseases of the circulatory system; Z82.3 Family history of stroke; Z80.9 Family history of malignant neoplasm, unspecified; Z81.1 Family history of alcohol abuse and dependence
CPT/HCPCS: 96366 ×5; 96376 ×3; 96372 ×4; 96361; 96365; 96367; 96375 ×2; 99284; 10060; 36415; 97161; 97165; 80053; 82565; 83605; 85025 ×2; 80202; 87040; 87070; 87205; 87635; G0378 ×5; J3370 ×3; J2001; J0295 ×3; J1885; J1644 ×3; 96374

== ENCOUNTER 2021-07-03 23:59 | Emergency (ER) | payer OTHER ==
--- NOTE | 2021-07-04 01:13 | ED ---
SOB HPI - General Chief Complaint: Shortness of Breath Stated Complaint: covid+, wants antibody infusion Time Seen by Provider: 07/04/21 00:28 Source: patient Mode of arrival: wheelchair Limitations: no limitations - History of Present Illness MD Complaint: shortness of breath, cough Onset/Timin -: week(s) Consistency: constant Improves With: nothing Worsens With: nothing Associated Symptoms: fever, cough Treatments Prior to Arrival: none - Related Data Home Oxygen Therapy: No Home Medications Medication Instructions Recorded Confirmed Cyclobenzaprine [Flexeril] 10 mg PO TID PRN 12/27/20 01/03/21 HYDROcodone/APAP 7.5-325MG [[place] 1 tab PO TID PRN 12/27/20 01/03/21 7.5-325] Pregabalin [Lyrica] 100 mg PO BID 12/27/20 01/03/21 Topiramate 50 mg PO BID 12/27/20 01/03/21 Previous Rx's Medication Instructions Recorded Sulfamethox-Tmp 800-160Mg [Bactrim 1 tab PO Q12HR 7 Days #14 tab 01/06/21 DS 800-160 mg] Allergies Allergy/AdvReac Type Severity Reaction Status Date / Time cephalexin [From Keflex] AdvReac Vomiting Verified 07/04/21 00:23 Review of Systems ROS Statement: Those systems with pertinent positive or pertinent negative responses have been documented in the HPI. ROS Other: All systems not noted in ROS Statement are negative. Constitutional: Reports: fever, chills Respiratory: Reports: cough. Denies: dyspnea Cardiovascular: Denies: chest pain, palpitations, edema, syncope Gastrointestinal: Denies: abdominal pain, vomiting, diarrhea Genitourinary: Denies: dysuria, frequency Musculoskeletal: Reports: myalgia. Denies: back pain Skin: Denies: rash Neurological: Denies: headache, weakness, numbness Past Medical History Past Medical History: Chest Pain / Angina Additional Past Medical History / Comment(s): diverticulitis, kidney stone, back pain, frequent falls History of Any Multi-Drug Resistant Organisms: None Reported Past Surgical History: Heart Catheterization, Orthopedic Surgery Additional Past Surgical History / Comment(s): bernardo knee surgery, neck surg, scopes to abdomen. Past Anesthesia/Blood Transfusion Reactions: No Reported Reaction Past Psychological History: Anxiety, Depression Smoking Status: Current some day smoker Past Alcohol Use History: Occasional Past Drug Use History: Marijuana - Past Family History Father Family Medical History: Diabetes Mellitus Additional Family Medical History / Comment(s): ETOH abuse. Father is . Mother Family Medical History: Cancer Additional Family Medical History / Comment(s): Mother passed from cancer-pt does not know type. family Family Medical History: Cancer, Coronary Artery Disease (CAD), CVA/TIA General Exam Limitations: no limitations General appearance: alert, in no apparent distress Head exam: Present: atraumatic, normocephalic Eye exam: Present: normal appearance. Absent: scleral icterus, conjunctival injection Neck exam: Present: normal inspection Respiratory exam: Present: normal lung sounds bilaterally. Absent: respiratory distress, wheezes, rales, rhonchi, stridor Cardiovascular Exam: Present: regular rate, normal rhythm, normal heart sounds. Absent: systolic murmur, diastolic murmur, rubs, gallop GI/Abdominal exam: Present: soft. Absent: distended, tenderness, guarding, rebound, rigid Extremities exam: Present: normal inspection, normal capillary refill Back exam: Present: normal inspection Neurological exam: Present: alert Skin exam: Present: warm, dry, intact, normal color. Absent: rash Course Vital Signs 07/04/21 07/04/21 07/04/21 00:23 01:55 02:46 Temperature 98.2 F Pulse Rate 77 59 L Respiratory 22 18 18 Rate Blood Pressure 116/87 135/63 O2 Sat by Pulse 98 98 Oximetry Disposition Clinical Impression: COVID-19 Disposition: HOME SELF-CARE Condition: Good Instructions (If sedation given, give patient instructions): Coronavirus Disease 2019 (COVID-19) Is patient prescribed a controlled substance at d/c from ED?: No Referrals: Hua Jaramillo MD [Primary Care Provider] - 1-2 days
[2021-07-04] MEDS ORDERED: SODIUM CHLORIDE 0.9% 50 ML IVPB ONE (01:30)
[2021-07-04] MEDS ORDERED: BAMLANIVIMAB (EUA) 700 MG, ETESEVIMAB (EUA) 1,400 MG in SODIUM CHLORIDE 0.9% 50 ML IVPB ONE (01:30)
[2021-07-04 02:01] VITALS: RESP 18
[2021-07-04 03:18] VITALS: BP 127/76; PULSE 63; TEMP 97.7
== END 2021-07-04 03:43 | disposition home or self-care (01) ==
LOC: EC 23:59
DX: U07.1 COVID-19 (principal); F17.200 Nicotine dependence, unspecified, uncomplicated; Z88.1 Allergy status to other antibiotic agents
CPT/HCPCS: 96365; 99284; J3490

== ENCOUNTER 2021-07-09 13:28 | Emergency (ER) | payer OTHER ==
[2021-07-09 13:43] VITALS: TEMP 98
[2021-07-09] MEDS ORDERED: DEXAMETHASONE SOD PHOSPHATE 10 MG/ML 1 ML VIAL IVP STA (14:53)
[2021-07-09] MEDS ORDERED: ALBUTEROL HFA INHALER INHALATION STA (14:53)
--- NOTE | 2021-07-09 15:11 | XR ---
EXAMINATION TYPE: XR chest 2V DATE OF EXAM: 07/09/2021 COMPARISON: 02/18/2019 HISTORY: Chest pain TECHNIQUE: 2 views FINDINGS: Heart and mediastinum are normal. Lungs are clear. Diaphragm is normal. Bony thorax is inta ct. IMPRESSION: Normal chest. No change.
[2021-07-09 15:25] VITALS: BP 148/83; RESP 18
[2021-07-09 15:32] LABS: Basophils % (A) 1 %; Eosinophils # (A) 0.1 k/uL (0-0.7); Eosinophils % (A) 1 %; HCT 42.8 % (39.0-53.0); Lymphocytes # (A) 2.7 k/uL (1.0-4.8); Lymphocytes % (A) 32 %; MCH 30.6 pg (25.0-35.0); MCV 87.5 fL (80.0-100.0); Mean Platelet Volume 10.8; Monocytes # (A) 0.6 k/uL (0-1.0); Monocytes % (A) 7 %; Neutrophils # (A) 4.8 k/uL (1.3-7.7); Neutrophils % (A) 58 %; Platelet Count 148 k/uL (150-450); RBC 4.89 m/uL (4.30-5.90); RDW 12.5 % (11.5-15.5); WBC 8.3 k/uL (3.8-10.6)
--- NOTE | 2021-07-09 15:37 | ED ---
General Adult HPI - General Chief complaint: Shortness of Breath Stated complaint: Covid+,SOB,Weakness Time Seen by Provider: 07/09/21 14:18 Source: patient Mode of arrival: wheelchair Limitations: no limitations - History of Present Illness Initial comments: 45-year-old male presents to the emergency room for a chief complaint of not feeling well. Patient tested positive for COVID-19 12 days ago. About 5 days ago he received the monoclonal antibodies. Patient states he was expecting this to help him feel better but he is still feeling weak and short of breath. Patient wanted to be checked out again to make sure everything was okay.Patient has no other complaints at this time including chest pain, abdominal pain, nausea or vomiting, headache, or visual changes. - Related Data Home Medications Medication Instructions Recorded Confirmed Cyclobenzaprine [Flexeril] 10 mg PO TID PRN 12/27/20 01/03/21 HYDROcodone/APAP 7.5-325MG [[place] 1 tab PO TID PRN 12/27/20 01/03/21 7.5-325] Pregabalin [Lyrica] 100 mg PO BID 12/27/20 01/03/21 Topiramate 50 mg PO BID 12/27/20 01/03/21 Previous Rx's Medication Instructions Recorded Sulfamethox-Tmp 800-160Mg [Bactrim 1 tab PO Q12HR 7 Days #14 tab 01/06/21 DS 800-160 mg] Albuterol Inhaler [Ventolin Hfa 2 puff INHALATION RT-QID PRN #8 gm 07/09/21 Inhaler] Dexamethasone [Decadron] 6 mg PO DAILY #6 tablet 07/09/21 Allergies Allergy/AdvReac Type Severity Reaction Status Date / Time cephalexin [From Keflex] AdvReac Vomiting Verified 07/09/21 13:42 Review of Systems ROS Statement: Those systems with pertinent positive or pertinent negative responses have been documented in the HPI. ROS Other: All systems not noted in ROS Statement are negative. Past Medical History Past Medical History: Chest Pain / Angina Additional Past Medical History / Comment(s): diverticulitis, kidney stone, back pain, frequent falls History of Any Multi-Drug Resistant Organisms: None Reported Past Surgical History: Heart Catheterization, Orthopedic Surgery Additional Past Surgical History / Comment(s): bernardo knee surgery, neck surg, scopes to abdomen. Past Anesthesia/Blood Transfusion Reactions: No Reported Reaction Past Psychological History: Anxiety, Depression Smoking Status: Current some day smoker Past Alcohol Use History: Occasional Past Drug Use History: Marijuana - Past Family History Father Family Medical History: Diabetes Mellitus Additional Family Medical History / Comment(s): ETOH abuse. Father is . Mother Family Medical History: Cancer Additional Family Medical History / Comment(s): Mother passed from cancer-pt does not know type. family Family Medical History: Cancer, Coronary Artery Disease (CAD), CVA/TIA General Exam Limitations: no limitations General appearance: alert, in no apparent distress Head exam: Present: atraumatic Eye exam: Present: normal appearance, PERRL, EOMI. Absent: scleral icterus, conjunctival injection ENT exam: Present: normal exam, mucous membranes moist Neck exam: Present: normal inspection, full ROM. Absent: tenderness Respiratory exam: Present: normal lung sounds bilaterally. Absent: respiratory distress, wheezes Cardiovascular Exam: Present: regular rate, normal rhythm, normal heart sounds Course Vital Signs 07/09/21 07/09/21 13:39 15:22 Temperature 98.0 F Pulse Rate 81 70 Respiratory 20 18 Rate Blood Pressure 166/100 148/83 O2 Sat by Pulse 98 98 Oximetry Medical Decision Making - Medical Decision Making Vitals are stable. Patient is 98% on room air. CBC and CMP are unremarkable. Chest x-ray shows a normal chest. No change. Patient previously had monoclonal antibody infusion. At this time we will start him on Decadron and albuterol. He will be encouraged to take vitamins [id number]. He will follow up with his doctor. He is aware to return here for any worsening symptoms. - Lab Data Result diagrams: 07/09/21 15:20 07/09/21 15:20 Lab Results 07/09/21 07/09/21 Range/Units 15:20 15:20 WBC 8.3 (3.8-10.6) k/uL RBC 4.89 (4.30-5.90) m/uL Hgb 15.0 (13.0-17.5) gm/dL Hct 42.8 (39.0-53.0) % MCV 87.5 (80.0-100.0) fL MCH 30.6 (25.0-35.0) pg MCHC 35.0 (31.0-37.0) g/dL RDW 12.5 (11.5-15.5) % Plt Count 148 L (150-450) k/uL MPV 10.8 Neutrophils % 58 % Lymphocytes % 32 % Monocytes % 7 % Eosinophils % 1 % Basophils % 1 % Neutrophils # 4.8 (1.3-7.7) k/uL Lymphocytes # 2.7 (1.0-4.8) k/uL Monocytes # 0.6 (0-1.0) k/uL Eosinophils # 0.1 (0-0.7) k/uL Basophils # 0.0 (0-0.2) k/uL Sodium 137 (137-145) mmol/L Potassium 4.0 (3.5-5.1) mmol/L Chloride 109 H (98-107) mmol/L Carbon Dioxide 21 L (22-30) mmol/L Anion Gap 7 mmol/L BUN 14 (9-20) mg/dL Creatinine 0.97 (0.66-1.25) mg/dL Est GFR (CKD-EPI)AfAm >90 (>60 ml/min/1.73 sqM) Est GFR (CKD-EPI)NonAf >90 (>60 ml/min/1.73 sqM) Glucose 127 H (74-99) mg/dL Calcium 8.9 (8.4-10.2) mg/dL Disposition Clinical Impression: COVID-19 Disposition: HOME SELF-CARE Condition: Good Instructions (If sedation given, give patient instructions): Coronavirus Disease 2019 (COVID-19) Additional Instructions: Please take medications as directed. Follow-up with your doctor in one to 2 days. Drink plenty of fluids. Return to the emergency room for any worsening symptoms. Prescriptions: Dexamethasone [Decadron] 6 mg PO DAILY #6 tablet Albuterol Inhaler [Ventolin Hfa Inhaler] 2 puff INHALATION RT-QID PRN #8 gm PRN Reason: Shortness Of Breath Is patient prescribed a controlled substance at d/c from ED?: No Referrals: Hua Jaramillo MD [Primary Care Provider] - 1-2 days Time of Disposition: 16:05
[2021-07-09 15:39] LABS: African American GFR (CKD) >90 (>60 ml/min/1.73 sqM); Anion Gap 7 mmol/L; Blood Urea Nitrogen 14 mg/dL (9-20); Calcium 8.9 mg/dL (8.4-10.2); Carbon Dioxide 21 mmol/L (22-30); Chloride 109 mmol/L (98-107); Glucose 127 mg/dL (74-99); Non-African American GFR(CKD) >90 (>60 ml/min/1.73 sqM); Sodium 137 mmol/L (137-145)
[2021-07-09 16:52] VITALS: PULSE 78
== END 2021-07-09 17:00 | disposition home or self-care (01) ==
LOC: EC 13:28
DX: U07.1 COVID-19 (principal); F41.9 Anxiety disorder, unspecified; F32.A Depression, unspecified; F17.200 Nicotine dependence, unspecified, uncomplicated; F12.90 Cannabis use, unspecified, uncomplicated; Z72.89 Other problems related to lifestyle
CPT/HCPCS: 36415; 94640; 80048; 85025; 71046; 99285; 96374; J1100

== ENCOUNTER 2021-07-30 23:05 | Emergency (ER) | payer OTHER ==
[2021-07-30] MEDS ORDERED: MORPHINE SULFATE 4 MG/ML SYRINGE IM STA (23:22)
[2021-07-30 23:23] VITALS: TEMP 98.3
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
[2021-07-31 02:03] VITALS: BP 141/85; PULSE 83; RESP 18
== END 2021-07-31 02:02 | disposition home or self-care (01) ==
LOC: EC 23:05
DX: M54.2 Cervicalgia (principal); M25.511 Pain in right shoulder; V89.2XXA Person injured in unspecified motor-vehicle accident, traffic, initial encounter; Y92.410 Unspecified street and highway as the place of occurrence of the external cause
CPT/HCPCS: 73030; 73060; 71045; 72125; 70450; 99284; 96372; J2270

== ENCOUNTER 2022-04-15 20:15 | Observation (INO) | payer OTHER ==
--- NOTE | 2022-04-15 20:47 | ED ---
Chest Pain HPI - General Chief Complaint: Chest Pain Stated Complaint: Chest pain/L arm weakness Time Seen by Provider: 04/15/22 20:33 Source: patient Mode of arrival: EMS Limitations: no limitations - History of Present Illness Initial Comments: Patient is a 46-year-old male presenting with chief complaint of chest pain. Chest pain is been coming on in episodes throughout the last week, patient states that today his convinced him to come get evaluated. Pain is located on the left side of the chest, radiates down the arm and up the side of the neck. Patient has a history of angina and 2x heart stents. He admits to some nausea, no vomiting. Some difficulty breathing when the episodes come on. No palpitations, weakness, abdominal pain, radiation of pain to the back, headache, neck stiffness, fever, chills, vision or hearing changes. - Related Data Home Medications Medication Instructions Recorded Confirmed Ibuprofen [Motrin] 800 mg PO TID 01/03/22 04/15/22 Butalb/APAP/Caff 50-325-40Mg 1 tab PO DAILY 04/15/22 04/15/22 [Fioricet 50-325-40] HYDROcodone/APAP 7.5-325MG [[place] 1 tab PO TID 04/15/22 04/15/22 7.5-325] Potassium Gluconate [Potassium 99 mg PO DAILY 04/15/22 04/15/22 Gluconate ER] Topiramate [Topamax] 100 mg PO BID 04/15/22 04/15/22 Allergies Allergy/AdvReac Type Severity Reaction Status Date / Time cephalexin [From Keflex] AdvReac Vomiting Verified 04/15/22 21:18 Review of Systems ROS Statement: Those systems with pertinent positive or pertinent negative responses have been documented in the HPI. ROS Other: All systems not noted in ROS Statement are negative. EKG Findings - EKG Comments: EKG Findings:: Sinus rhythm rate of 72. CT interval 183. QRS duration 117. QT/QTC 387/411. Left axis deviation. No ST deviation. Past Medical History Past Medical History: Chest Pain / Angina Additional Past Medical History / Comment(s): diverticulitis, kidney stone, back pain, frequent falls History of Any Multi-Drug Resistant Organisms: None Reported Past Surgical History: Heart Catheterization, Orthopedic Surgery Additional Past Surgical History / Comment(s): bernardo knee surgery, neck surg, scopes to abdomen. Past Anesthesia/Blood Transfusion Reactions: No Reported Reaction Past Psychological History: Anxiety, Depression Smoking Status: Current some day smoker Past Alcohol Use History: Occasional Past Drug Use History: Marijuana - Past Family History Father Family Medical History: Diabetes Mellitus Additional Family Medical History / Comment(s): ETOH abuse. Father is . Mother Family Medical History: Cancer Additional Family Medical History / Comment(s): Mother passed from cancer-pt does not know type. family Family Medical History: Cancer, Coronary Artery Disease (CAD), CVA/TIA General Exam Limitations: no limitations General appearance: alert, in no apparent distress Head exam: Present: atraumatic, normocephalic, normal inspection Eye exam: Present: normal appearance, EOMI. Absent: scleral icterus, periorbital swelling Neck exam: Present: normal inspection Respiratory exam: Present: normal lung sounds bilaterally. Absent: respiratory distress, wheezes, rales, rhonchi, stridor Cardiovascular Exam: Present: regular rate, normal rhythm, normal heart sounds. Absent: systolic murmur, diastolic murmur, rubs, gallop, clicks GI/Abdominal exam: Present: soft. Absent: distended, tenderness, guarding, rebound, rigid Neurological exam: Present: alert, oriented X3, CN II-XII intact Psychiatric exam: Present: normal affect, normal mood Skin exam: Present: warm, dry, intact, normal color. Absent: rash Course Vital Signs 04/15/22 04/15/22 04/15/22 20:29 20:49 22:46 Temperature 98.3 F Pulse Rate 71 67 Respiratory 20 18 Rate Blood Pressure 123/73 116/70 O2 Sat by Pulse 98 Oximetry Chest [facility] Patient is a 46-year-old male presenting with chief complaint of left-sided chest pain. Radiates down the left arm and of the left side of the neck. Patient states he has had intermittent episodes of this ongoing for the last week. At time of initial assessment patient is not complaining of any active pain. EKG shows no acute changes from previous study. Troponin is unremarkable. Chest x-ray shows no acute process. Patient will be admitted for trending troponins and cardiac evaluation. I discussed the patient with Dr. Vitale who agreed to admit. I discussed these findings and the plan with the patient, he was agreeable. I discussed this case with my attending Dr. Aceves Disposition Clinical Impression: Chest pain Disposition: ADMITTED IP TO THIS HOSP Condition: Fair Time of Disposition: 22:09 Decision to Admit Reason: Admit from EC Decision Date: 04/15/22 Decision Time: 22:09
[2022-04-15 21:17] LABS: Basophils # (A) 0.1 k/uL (0-0.2); Basophils % (A) 1 %; Eosinophils # (A) 0.2 k/uL (0-0.7); Eosinophils % (A) 2 %; HCT 46.1 % (39.0-53.0); HGB 15.4 gm/dL (13.0-17.5); Lymphocytes # (A) 2.9 k/uL (1.0-4.8); Lymphocytes % (A) 27 %; MCHC 33.4 g/dL (31.0-37.0); MCV 89.9 fL (80.0-100.0); Mean Platelet Volume 10.2; Monocytes # (A) 0.8 k/uL (0-1.0); Monocytes % (A) 8 %; Neutrophils # (A) 6.7 k/uL (1.3-7.7); Neutrophils % (A) 61 %; Platelet Count 199 k/uL (150-450); RBC 5.13 m/uL (4.30-5.90); RDW 12.5 % (11.5-15.5); WBC 10.9 k/uL (3.8-10.6)
--- NOTE | 2022-04-15 21:18 | XR ---
EXAMINATION TYPE: XR chest 1V portable DATE OF EXAM: 04/15/2022 9:06 PM COMPARISON: Chest x-ray from 02/28/2022, CT abdomen pelvis 01/03/2022 TECHNIQUE: XR chest 1V portable . CLINICAL INDICATION:Male, 46 years old with history of chest pain; FINDINGS: Lungs/Pleura: There is no evidence of pleural effusion, focal consolidation, or pneumothorax. Pulmonary vascularity: Unremarkable. Heart/mediastinum: Cardiomediastinal silhouette is unremarkable. Musculoskeletal: No acute osseous pathology. There is fixation hardware in the lower cervical spine. IMPRESSION: No acute cardiopulmonary disease/process.
[2022-04-15 21:25] LABS: Partial Thromboplastin Time 23.2 sec (22.0-30.0); Prothrombin Time 10.5 sec (9.0-12.0)
[2022-04-15 21:26] LABS: ALT 35 U/L (4-49); AST 34 U/L (17-59); African American GFR (CKD) >90 (>60 ml/min/1.73 sqM); Albumin 4.1 g/dL (3.5-5.0); Alkaline Phosphatase 62 U/L (38-126); Anion Gap 12 mmol/L; Blood Urea Nitrogen 19 mg/dL (9-20); Calcium 9.1 mg/dL (8.4-10.2); Carbon Dioxide 19 mmol/L (22-30); Chloride 107 mmol/L (98-107); Glucose 118 mg/dL (74-99); Magnesium 1.8 mg/dL (1.6-2.3); Non-African American GFR(CKD) 86 (>60 ml/min/1.73 sqM); Sodium 138 mmol/L (137-145); Total Bilirubin 0.5 mg/dL (0.2-1.3); Total Protein 6.8 g/dL (6.3-8.2)
[2022-04-15 21:36] LABS: Potassium 4.1 mmol/L (3.5-5.1)
[2022-04-15] MEDS ORDERED: ASPIRIN 81 MG PO STA (21:51)
[2022-04-15] MEDS ORDERED: MORPHINE SULFATE 4 MG/ML SYRINGE IVP STA (21:51)
[2022-04-15] MEDS ORDERED: NITROGLYCERIN SL TABS 0.4 MG TAB SUBLINGUAL PRN (21:51)
[2022-04-15] MEDS ORDERED: NALOXONE 0.4 MG/ML 1 ML VIAL IV PRN (22:09)
[2022-04-16] MEDS: TOPIRAMATE 100 MG TAB PO SCH ×3 (00:29→21:00)
[2022-04-16] MEDS: IBUPROFEN 800 MG TAB PO SCH ×4 (00:29→21:00)
[2022-04-16] MEDS: HYDROcodone/APAP 7.5-325MG 1 EACH TAB PO SCH ×4 (00:30→21:00)
--- NOTE | 2022-04-16 03:12 | P.HPIM ---
History of Present Illness H&P Date: 04/15/22 Chief Complaint: chest pain 46 year old male denies any significant past medical history ED noted that patient has history of Coronary artery stents, however, when I asked him, he claimed that he had chest pain since age 17 year and no one could figure out why. and that he had 2 left heart caths in the past, and everytime the result is normal patient coming in today due to sudden onset chest pain , described as central stabbing pain radiates to the left arm and neck. 8/10 in severity lasted for about 15 minutes. he was not too concerned about it but then decided to come in for evaluation. he drove himself to the hospital . associated with feeling nauseated, and heavy breathing, with some palpitations and feeling dizzy. denies any vomiting, GI bleeding, abd pain , changes in his urinary or bowel habits. he also reports that over the past few days, he did not feel that he had the energy to do his chores , but denies any exertional chest pain. usually his low back pain prevents him for pushing himself when he does anything. he does admit to history of polysubstance abuse, but he had been sober and clean for years now. currently only admits to tobacco smoking he denies any recent travel, or hospital stay, denies any history of cancer or blood clots. he denies taking any prescription medications other than pain meds workup in the ED CXR no acute pathology trops negative Review of Systems Pertinent positives as noted in HPI. All other systems were reviewed and are negative Past Medical History Past Medical History: Chest Pain / Angina Additional Past Medical History / Comment(s): diverticulitis, kidney stone, back pain, frequent falls History of Any Multi-Drug Resistant Organisms: None Reported Past Surgical History: Heart Catheterization, Orthopedic Surgery Additional Past Surgical History / Comment(s): bernardo knee surgery, neck surg, scopes to abdomen. Past Anesthesia/Blood Transfusion Reactions: No Reported Reaction Past Psychological History: Anxiety, Depression Smoking Status: Current some day smoker Past Alcohol Use History: Occasional Past Drug Use History: Marijuana - Past Family History Father Family Medical History: Diabetes Mellitus Additional Family Medical History / Comment(s): ETOH abuse. Father is . Mother Family Medical History: Cancer Additional Family Medical History / Comment(s): Mother passed from cancer-pt does not know type. family Family Medical History: Cancer, Coronary Artery Disease (CAD), CVA/TIA Medications and Allergies Home Medications Medication Instructions Recorded Confirmed Type Ibuprofen [Motrin] 800 mg PO TID 01/03/22 04/15/22 History Butalb/APAP/Caff 50-325-40Mg 1 tab PO DAILY 04/15/22 04/15/22 History [Fioricet 50-325-40] HYDROcodone/APAP 7.5-325MG [[place] 1 tab PO TID 04/15/22 04/15/22 History 7.5-325] Potassium Gluconate [Potassium 99 mg PO DAILY 04/15/22 04/15/22 History Gluconate ER] Topiramate [Topamax] 100 mg PO BID 04/15/22 04/15/22 History Allergies Allergy/AdvReac Type Severity Reaction Status Date / Time cephalexin [From Keflex] AdvReac Vomiting Verified 04/15/22 21:18 Physical Exam Vitals: Vital Signs Temp Pulse Resp BP Pulse Ox 04/15/22 22:46 67 18 116/70 98 04/15/22 20:49 123/73 04/15/22 20:29 98.3 F 71 20 Intake and Output 04/15/22 04/15/22 04/16/22 14:59 22:59 06:59 Other: Weight 204.117 kg Constitutional: No acute distress, conversant, pleasant Eyes: Anicteric sclerae, moist conjunctiva, Pupils equal round reactive to light ENMT: NC/AT Oropharynx clear, no erythema, or exudates Neck: Supple, no masses, or JVD No carotid bruits No thyromegaly Lungs: Clear to auscultation Clear to percussion Normal respiratory effort, no accessory muscle use Cardiovascular: Heart regular in rate and rhythm, No murmurs, gallops, or rubs No peripheral edema Abdominal: Soft Nontender, no guarding, rebound or rigidity Abdomen moving with respiration Normoactive bowel sounds No hepatomegaly, No splenomegaly No palpable mass No abdominal wall hernia noted Skin: Normal temperature, tone, texture, turgor No induration No subcutaneous nodules No rash, lesions No ulcers Extremities: No digital cyanosis No clubbing Pedal pulses intact and symmetrical Radial pulses intact and symmetrical No calf tenderness Psychiatric: Alert and oriented to person, place and time Appropriate affect fair judgement Neuro Muscles Strength 5/5 in all 4 extremities Sensation to light touch grossly present throughout Cranial nerves II-XII grossly intact No focal sensory deficits Lymphatics: no palpable cervical or supraclavicular , or inguinal lymph nodes Results CBC & Chem 7: 04/15/22 20:58 04/15/22 20:58 Labs: Abnormal Lab Results - Last 24 Hours (Table) 04/15/22 04/15/22 Range/Units 20:58 20:58 WBC 10.9 H (3.8-10.6) k/uL Carbon Dioxide 19 L (22-30) mmol/L Glucose 118 H (74-99) mg/dL Assessment and Plan Assessment: atypical chest pain rule out ACS EKG no acute changes CXR no acute pathology trops negative X2 pvc monitor monitor vital signs ASA, statin cardiology consult A1c, lipid panel , TSH pain control Chronic low back pain Resume home pain medications DVT prophylaxis heparin subcu 3 times a day Full code
[2022-04-16] MEDS: ASPIRIN 81 MG PO SCH (08:55)
[2022-04-16] MEDS: HEPARIN SODIUM,PORCINE/PF 5,000 UNIT/0.5 ML SYRINGE SQ SCH ×3 (08:55→20:59)
[2022-04-16] MEDS: ATORVASTATIN 20 MG TAB PO SCH (08:56)
[2022-04-16] MEDS: BUTALB/APAP/CAFF 50-325-40MG TAB PO SCH (08:57)
[2022-04-16 10:39] LABS: Glucose,Whole Blood 119 mg/dL (70-110)
--- NOTE | 2022-04-16 10:45 | P.HPCAR ---
History of Present Illness This is Dr. Shields dictating a consult on this patient The patient was interviewed and examined IMPRESSION / ASSESSMENT: Recurrent chest discomfort, most recent episode yesterday for about 15 minutes at rest Left pectoral chest discomfort with radiation to the left side of the neck and arm Normal cardiac enzymes Initial twelve-lead EKGs (three) did not show any ST segment changes Twelve-lead EKG this morning showed ST depression in the inferior leads with T- wave inversion which is new Morbid obesity Current smoker PLAN: Hemoglobin A1c, lipid panel, aspirin and statins I discussed this with Dr. Gonsalez Based upon the new EKG changes that are quite significant, even in the absence of ongoing chest pain and in the presence of normal troponins I would still proceed with coronary angiography today Discussed the patient is agreeable with the plan Lipid panel Hemoglobin A1c Smoking cessation Weight reduction HPI Patient has been experiencing recurrent chest discomfort, the last episode about lasting 15 minutes yesterday He came to the hospital he had no pain He has several EKGs performed yesterday which are all normal without any ST segment abnormalities. There is a left axis deviation noted His troponins have been normal His chest discomfort is left pectoral but he does have radiation to the left side of the neck and to the left arm Initially on my evaluation this morning he was completely pain free However at twelve-lead EKG that was done about 5:30 this morning showed new ST segment depression with T-wave inversions in the inferior leads The patient states he is a smoker but does not know if he is diabetic or not He does not see any physician ROS: No fever chills or rigors, no cough, phlegm or expectoration, no nausea, vomiting or diarrhea, no hematuria, dysuria, no musculoskeletal complaints, no strokes or seizures, no skin lesions. EXAMINATION: On examination afebrile, pulse rate in the 50s and 60s Blood pressure 107/63 116/70 mmHg Breath sounds equal bilaterally but reduced. Bilateral scattered rhonchi with prolonged expiration Heart sounds S1-S2 normal and regular Increased BMI REVIEW OF LABS, ECG & MEDICAL DATA White count 10.9 thousand, hemoglobin 15.4 Sodium and potassium normal BUN and creatinine normal 3 normal troponins Lipid panel and hemoglobin A1c pending Physical Exam Vitals: Vital Signs Temp Pulse Pulse Resp BP BP BP 04/16/22 07:00 97.5 F L 58 L 18 112/73 04/16/22 02:00 99.1 F 57 L 19 151/76 04/15/22 23:33 97.7 F 55 L 18 107/63 04/15/22 22:46 67 18 116/70 04/15/22 20:49 123/73 04/15/22 20:29 98.3 F 71 20 Pulse Ox 04/16/22 07:00 96 04/16/22 02:00 94 L 04/15/22 23:33 96 04/15/22 22:46 98 04/15/22 20:49 04/15/22 20:29 Intake and Output 04/15/22 04/16/22 04/16/22 22:59 06:59 14:59 Other: # Voids 1 Weight 204.117 kg Past Medical History Past Medical History: Chest Pain / Angina Additional Past Medical History / Comment(s): diverticulitis, kidney stone, back pain, frequent falls History of Any Multi-Drug Resistant Organisms: None Reported Past Surgical History: Heart Catheterization, Orthopedic Surgery Additional Past Surgical History / Comment(s): bernardo knee surgery, neck surg, scopes to abdomen. Past Anesthesia/Blood Transfusion Reactions: No Reported Reaction Past Psychological History: Anxiety, Depression Smoking Status: Current some day smoker Past Alcohol Use History: Occasional Past Drug Use History: Marijuana - Past Family History Father Family Medical History: Diabetes Mellitus Additional Family Medical History / Comment(s): ETOH abuse. Father is . Mother Family Medical History: Cancer Additional Family Medical History / Comment(s): Mother passed from cancer-pt does not know type. family Family Medical History: Cancer, Coronary Artery Disease (CAD), CVA/TIA Physical Examination Vital Signs Temp Pulse Pulse Resp BP BP BP 04/16/22 07:00 97.5 F L 58 L 18 112/73 04/16/22 02:00 99.1 F 57 L 19 151/76 04/15/22 23:33 97.7 F 55 L 18 107/63 04/15/22 22:46 67 18 116/70 04/15/22 20:49 123/73 04/15/22 20:29 98.3 F 71 20 Pulse Ox 04/16/22 07:00 96 04/16/22 02:00 94 L 04/15/22 23:33 96 04/15/22 22:46 98 04/15/22 20:49 04/15/22 20:29 Intake and Output 04/15/22 04/16/22 04/16/22 22:59 06:59 14:59 Other: # Voids 1 Weight 204.117 kg Results 04/15/22 20:58 04/15/22 20:58 Cardiac Enzymes 04/15/22 04/15/22 04/15/22 Range/Units 20:58 20:58 23:23 AST 34 (17-59) U/L Troponin I <0.012 <0.012 (0.000-0.034) ng/mL 04/16/22 Range/Units 02:48 AST (17-59) U/L Troponin I <0.012 (0.000-0.034) ng/mL Coagulation 04/15/22 Range/Units 20:58 PT 10.5 (9.0-12.0) sec APTT 23.2 (22.0-30.0) sec CBC 04/15/22 Range/Units 20:58 WBC 10.9 H (3.8-10.6) k/uL RBC 5.13 (4.30-5.90) m/uL Hgb 15.4 (13.0-17.5) gm/dL Hct 46.1 (39.0-53.0) % Plt Count 199 (150-450) k/uL Comprehensive Metabolic Panel 04/15/22 Range/Units 20:58 Sodium 138 (137-145) mmol/L Potassium 4.1 (3.5-5.1) mmol/L Chloride 107 (98-107) mmol/L Carbon Dioxide 19 L (22-30) mmol/L BUN 19 (9-20) mg/dL Creatinine 1.04 (0.66-1.25) mg/dL Glucose 118 H (74-99) mg/dL Calcium 9.1 (8.4-10.2) mg/dL AST 34 (17-59) U/L ALT 35 (4-49) U/L Alkaline Phosphatase 62 (38-126) U/L Total Protein 6.8 (6.3-8.2) g/dL Albumin 4.1 (3.5-5.0) g/dL Current Medications Generic Name Dose Route Start Last Admin Trade Name Freq PRN Reason Stop Dose Admin Acetaminophen/Butalbital/Caffeine 1 each 04/16/22 09:00 04/16/22 08:57 Butalb/Apap/Caff 50-325-40mg Tab PO 1 each DAILY BRUCE Administration Hydrocodone Bitart/Acetaminophen 1 each 04/15/22 23:45 04/16/22 08:55 Hydrocodone/Apap 7.5-325mg 1 Each Tab PO 1 each TID BRUCE Administration Aspirin 81 mg 04/16/22 09:00 04/16/22 08:55 Aspirin 81 Mg PO 81 mg DAILY BRUCE Administration Atorvastatin Calcium 20 mg 04/16/22 09:00 04/16/22 08:56 Atorvastatin 20 Mg Tab PO 20 mg DAILY BRUCE Administration Heparin Sodium (Porcine) 5,000 unit 04/16/22 08:00 04/16/22 08:55 Heparin Sodium,Porcine/Pf 5,000 Unit/0.5 Ml Syringe SQ 5,000 unit Q8HR BRUCE Administration Ibuprofen 800 mg 04/15/22 23:45 04/16/22 08:56 Ibuprofen 800 Mg Tab PO 800 mg TID BRUCE Administration Naloxone HCl 0.2 mg 04/15/22 22:09 Naloxone 0.4 Mg/Ml 1 Ml Vial IV Q2M PRN Opioid Reversal Nitroglycerin 0.4 mg 04/15/22 21:51 Nitroglycerin Sl Tabs 0.4 Mg Tab SUBLINGUAL Q5M PRN Chest Pain Topiramate 100 mg 04/15/22 23:45 04/16/22 08:59 Topiramate 100 Mg Tab PO 100 mg BID BRUCE Administration Intake and Output 04/15/22 04/16/22 04/16/22 22:59 06:59 14:59 Other: # Voids 1 Weight 204.117 kg 04/15/22 20:58 04/15/22 20:58
[2022-04-16] MEDS: SODIUM CHLORIDE 0.9% 1,000 ML IV SCH (10:55)
[2022-04-16] MEDS ORDERED: VERAPAMIL 2.5 MG/ML 2 ML AMP ONE (11:43)
[2022-04-16] MEDS ORDERED: fentaNYL (PF) 50 MCG/ML 2 ML AMP ONE (12:04)
[2022-04-16] MEDS ORDERED: HEPARIN SODIUM 1,000 UN/ML (10ML VL) ONE (12:04)
[2022-04-16] MEDS: fentaNYL (PF) 50 MCG/ML 2 ML AMP IVP ONE ×2 (12:07→12:09)
[2022-04-16] MEDS ORDERED: IV FLUID CONTINUATION 1,000 ML IV ONE (12:07)
[2022-04-16] MEDS ORDERED: LIDOCAINE 1% INJ 10MG/ML (30 ML VIAL-PF) SQ ONE (12:07)
[2022-04-16] MEDS: MIDAZOLAM 2 MG/2 ML VIAL IVP ONE ×2 (12:07→12:09)
[2022-04-16] MEDS ORDERED: HEPARIN SODIUM 1,000 UN/ML (10ML VL) IV ONE (12:10)
[2022-04-16] MEDS ORDERED: VERAPAMIL SYRINGE (5 MG/10 ML) INTRAARTER ONE (12:10)
[2022-04-16 12:15] LABS: Chol/HDL Ratio 6.92 Ratio; LDL Cholesterol,Calculated 112.9 mg/dL (0.0-131.0)
[2022-04-16] MEDS ORDERED: IOPAMIDOL-370 125ML BTL INJ ONE (12:21)
--- NOTE | 2022-04-16 14:08 | P.PN ---
Subjective Progress Note Date: 04/16/22 Principal diagnosis: Chest pain Hospital course: 46-year-old male with history of polysubstance abuse and current tobacco use presenting with concerns of ongoing chest pain. Patient was evaluated by cardiology, initial EKGs did not show any ST segment changes. However, patient in a morning EKG evaluated by cardiology which showed possible ST depression in the inferior leads. Patient had negative troponins. He was taken for coronary angiogram. Subjective: Patient seen and examined at bedside. Patient continues to complain of ongoing chest pain on the left side. He claims that his chest pain has been going on for almost a week, on and off, unrelated to exertion or rest. He is also complaining of slight nausea, but denies any vomiting or abdominal pain. He denies any urinary or bowel complaints. He denies any shortness of breath or cough. Pertinent positives and negatives as discussed above, a complete review of systems was performed and all other systems are negative. Vital signs reviewed. General: nontoxic, no distress, appears at stated age, morbidly obese Derm: warm, dry Head: atraumatic, normocephalic, symmetric Eyes: EOMI, no lid lag, anicteric sclera Mouth: no lip lesion, mucus membranes moist Cardiovascular: S1S2 reg, no murmur, positive posterior tibial pulse bilateral, Lungs: CTA bilateral, no rhonchi, no rales , no accessory muscle use Abdominal: soft, nontender to palpation, no guarding, no appreciable organomegaly Ext: no gross muscle atrophy, trace peripheral edema, no contractures Neuro: CN II-XI grossly intact, no focal neuro deficits Psych: Alert, oriented, appropriate affect Assessment and plan: chest pain, rule out ACS -Cardiology consulted -Per cardiology known, one of the EKG showed inferior lead ST changes and T-wave -Chest x-ray negative -Troponin negative 3 -Continue telemetry -On aspirin and statin -Cardiology planning per coronary angiogram A1c, lipid panel, TSH pending Morbidly obese -may benefit from bariatric surgery in the future Chronic low back pain -on home pain medications DVT prophylaxis: Subcu heparin DNR/DNI Objective - Vital Signs Vital signs: Vital Signs Temp 97.5 F L 04/16/22 07:00 Pulse 58 L 04/16/22 07:00 Resp 18 04/16/22 07:00 BP 112/73 04/16/22 07:00 Pulse Ox 96 04/16/22 07:00 FiO2 Intake & Output 04/15/22 04/16/22 04/16/22 18:59 06:59 18:59 Intake Total 272 Balance 272 Weight 204.117 kg Intake: IV 50 Oral 222 Other: # Voids 1 1 - Labs CBC & Chem 7: 04/15/22 20:58 04/15/22 20:58 Labs: Abnormal Lab Results - Last 24 Hours (Table) 04/15/22 04/15/22 04/16/22 Range/Units 20:58 20:58 05:52 WBC 10.9 H (3.8-10.6) k/uL Carbon Dioxide 19 L (22-30) mmol/L Glucose 118 H (74-99) mg/dL POC Glucose (mg/dL) (70-110) mg/dL Hemoglobin A1c 6.2 H (0.0-6.0) % Triglycerides (0.00-149.00) mg/dL VLDL Cholesterol, Calc (5.00-40.00) mg/dL HDL Cholesterol (40.00-60.00) mg/dL 04/16/22 04/16/22 Range/Units 05:52 10:38 WBC (3.8-10.6) k/uL Carbon Dioxide (22-30) mmol/L Glucose (74-99) mg/dL POC Glucose (mg/dL) 119 H (70-110) mg/dL Hemoglobin A1c (0.0-6.0) % Triglycerides 261.00 H (0.00-149.00) mg/dL VLDL Cholesterol, Calc 52.20 H (5.00-40.00) mg/dL HDL Cholesterol 27.90 L (40.00-60.00) mg/dL
--- NOTE | 2022-04-16 22:55 | P.CARDCATH ---
Description of Procedure: PROCEDURES PERFORMED: Left heart catheterization, bilateral coronary angiography INDICATION: Chest pain, abnormal EKG CONSENT:I have discussed the risks, benefits and alternative therapies for the above-mentioned procedure and for both sedation/analgesia as well as necessary blood product administration, if indicated, as they pertain to this patient. The patient has indicated understanding and acceptance of the risks and procedures discussed. PROCEDURE: After the risks, benefits and alternatives of the above mentioned procedure explained in detail with the patient, informed consent was obtained. Patient was taken to the catheterization lab and prepped and draped in usual fashion. 1% lidocaine was used to anesthetize the right radial artery. A 6- Danish sheath was placed in the right radial artery using modified Seldinger technique. Left coronary angiography was performed with a 5-Danish JL 3.5 catheter and right coronary angiography was performed with a 5-Danish AR2 catheter. A 5-Danish FR5 catheter was inserted into the left ventricle and pressure measurements were obtained. The right radial sheath was removed and a TR band was placed with hemostasis achieved. The patient tolerated the procedure well. Patient was transported back to the post catheterization holding area in stable condition. Conscious Sedation: Patient was monitored under the direct supervision of vision of myself for conscious sedation using Versed and fentanyl for a total duration of 22 minutes HEMODYNAMICS: Aorta: 179/98 LV: 172/12, LVEDP 22 SELECTIVE CORONARY ARTERIOGRAPHY: LEFT MAIN: The left main is a large caliber vessel which bifurcates into the LAD and circumflex. There is no significant stenosis. LEFT ANTERIOR DESCENDING CORONARY ARTERY: LAD is a large caliber vessel which wraps around to the apex. There is mild proximal LAD 10-20% stenosis and diffuse 30% stenosis of the mid to distal LAD. LEFT CIRCUMFLEX CORONARY ARTERY: Left circumflex is a large caliber vessel with only mild luminal irregularities up to 10% stenosis. RIGHT CORONARY ARTERY: The right coronary artery is a small caliber vessel which gives off the PDA and PLV and is the dominant vessel. There is mild 10-20% stenosis. FINAL IMPRESSION: 1. Mild CAD as described above including mid LAD 30% stenosis and otherwise mild luminal irregularities. 2. Elevated left sided filling pressures as well as elevated blood pressure throughout procedure PLAN: 1. Aggressive risk factor modification per most recent ACC/AHA guidelines. 2. If continues to have chest pain, consider antianginals for possible microvascular dysfunction. Aggressive blood pressure control.
[2022-04-17 08:06] VITALS: BP 129/77; PULSE 63; RESP 18; TEMP 97.6
--- NOTE | 2022-04-17 09:14 | P.PN ---
Subjective Progress Note Date: 04/17/22 This is Osito Gonzalez NP, I'm dictating on behalf of Dr. Shields's H&P and A&P. Patient was interviewed and examined. Patient is a pleasant 46-year-old male who initially presented to the hospital with chest pain. Patient underwent a cardiac catheterization yesterday, which demonstrated 30% stenosis to the LAD mid to distal, proximal LAD 10-20% stenosis, left circumflex 10% stenosis, and RCA 10-20% stenosis. Today patient reports no chest pain. He does have some shortness of breath with exertion. Cardiac cath also demonstrated high LVADP. A detailed conversation was had with the patient this morning, detailing the fact that he needs to stop smoking, lose weight, and take both the aspirin and the Lipitor that he has been prescribed in order to avoid further stenosis of his cardiac arteries, which ultimately will lead to a heart attack and likely heart failure. Patient stated that he hardly eats food at this time, and states is very hard for him to lose weight due to his mobility issues. It was reiterated to the patient that if he does not lose weight, does not stop smoking, and does not take the pills that we are prescribing him, he will end up with a heart attack or heart failure likely within the next 10 years. Patient did verbalize understanding of this. GENERAL: Well-appearing, well-nourished and in no acute distress. NECK: Supple without JVD or thyromegaly. LUNGS: Breath sounds clear to auscultation bilaterally. Respiration equal and unlabored. No wheezes, rales or rhonchi. HEART: Regular rate and rhythm without murmurs, rubs or gallops. S1 and S2 heard. EXTREMITIES: Normal range of motion, no edema. No clubbing or cyanosis. Peripheral pulses intact and strong. VITALS: Temp 97.6, pulse 63, respirations 18, blood pressure 129/77, O2 saturation 98% on room air TELEMETRY: Normal sinus rhythm LABS: Hemoglobin A1c 6.2, triglycerides 261, cholesterol 193, LDL 112, HDL 27.9, TSH 2.39 IMPRESSION: Recurrent chest discomfort, most recent episode 2 days ago for about 15 minutes at rest Left pectoral chest discomfort with radiation to the left side of the neck and arm Normal cardiac enzymes Initial 12-lead EKGs (3) see did not show any ST segment changes 12-lead EKG yesterday morning showed ST depression in the inferior leads with T- wave inversion which is new Morbid obesity Current smoker Prediabetes PLAN: Atorvastatin 20 mg daily Aspirin 81 mg daily Weight reduction Smoking cessation Follow-up with primary care provider for elevated hemoglobin A1c Follow-up with cardiology From a cardiology standpoint the patient may be discharged today. Objective - Vital Signs Vital signs: Vital Signs Temp 97.6 F 04/17/22 07:00 Pulse 63 04/17/22 07:00 Resp 18 04/17/22 07:00 BP 129/77 04/17/22 07:00 Pulse Ox 98 04/17/22 07:00 FiO2 Intake & Output 04/16/22 04/17/22 04/17/22 18:59 06:59 18:59 Intake Total 494 Balance 494 Intake: IV 50 Oral 444 Other: # Voids 1 1 - Labs CBC & Chem 7: 04/15/22 20:58 04/15/22 20:58 Labs: Abnormal Lab Results - Last 24 Hours (Table) 04/16/22 04/16/22 04/16/22 Range/Units 05:52 05:52 10:38 POC Glucose (mg/dL) 119 H (70-110) mg/dL Hemoglobin A1c 6.2 H (0.0-6.0) % Triglycerides 261.00 H (0.00-149.00) mg/dL VLDL Cholesterol, Calc 52.20 H (5.00-40.00) mg/dL HDL Cholesterol 27.90 L (40.00-60.00) mg/dL
[2022-04-17] MEDS: HEPARIN SODIUM,PORCINE/PF 5,000 UNIT/0.5 ML SYRINGE SQ SCH (09:15)
[2022-04-17] MEDS: TOPIRAMATE 100 MG TAB PO SCH (09:15)
[2022-04-17] MEDS: ATORVASTATIN 20 MG TAB PO SCH (09:15)
[2022-04-17] MEDS: IBUPROFEN 800 MG TAB PO SCH (09:15)
[2022-04-17] MEDS: HYDROcodone/APAP 7.5-325MG 1 EACH TAB PO SCH (09:16)
[2022-04-17] MEDS: SODIUM CHLORIDE 0.9% 1,000 ML IV SCH (09:17)
[2022-04-17] MEDS: BUTALB/APAP/CAFF 50-325-40MG TAB PO SCH (09:17)
[2022-04-17] MEDS: ASPIRIN 81 MG PO SCH (09:17)
--- NOTE | 2022-04-17 10:25 | P.DS ---
Providers Date of admission: 04/15/22 22:14 Expected date of discharge: 04/17/22 Attending physician: Santhosh Siddiqi MD Consults: 04/15/22 22:09 Consult Physician Urgent Consulting Provider: [facility] Consult Reason/Comments: Chest pain Do you want consulting provider notified?: Yes Primary care physician: Hua Jaramillo Hospital Course: Discharge Diagnosis: Chest pain, likely atypical Coronary artery disease Morbid obesity Prediabetes Nicotine dependence Chronic low back pain Hospital Course: 46-year-old male with remote history of polysubstance abuse, and current tobacco use presented initially with concerns of ongoing chest pain. Patient was evaluated by cardiology, and had an angiogram. Left heart cath - mild CAD with mid LAD 30% stenosis, and mild stenosis and left circumflex and right coronary artery. Elevated LVEDP. Patient will need echo as an outpatient. A1c found to be 6.2. Will need aggressive lifestyle and dietary modifications. Patient being discharged with aspirin and atorvastatin. Encouraged smoking cessation. Needs progressive weight loss to prevent acute ND, or heart failure in the future. Patient verbalizes understanding. Patient seen and examined at bedside. Vital signs reviewed and stable. General: nontoxic, no distress, appears at stated age, morbidly obese Derm: warm, dry Head: atraumatic, normocephalic, symmetric Eyes: EOMI, no lid lag, anicteric sclera Mouth: no lip lesion, mucus membranes moist Cardiovascular: S1S2 reg, no murmur Lungs: CTA bilateral, no rhonchi, no rales , no accessory muscle use Abdominal: soft, nontender to palpation, no guarding, no appreciable organomegaly Ext: no gross muscle atrophy, trace peripheral edema, no contractures Neuro: CN II-XI grossly intact, no focal neuro deficits Psych: Alert, oriented, appropriate affect A total of 33 minutes of time were spent preparing this complex [facility] Patient was discharged on 04/17/22 at 10:16. Patient Condition at Discharge: Fair Plan - Discharge Summary New Discharge Prescriptions: New Aspirin 81 mg PO DAILY #30 tab Atorvastatin [Lipitor] 20 mg PO DAILY #30 tab Continue Topiramate [Topamax] 100 mg PO BID HYDROcodone/APAP 7.5-325MG [[place] 7.5-325] 1 tab PO TID Potassium Gluconate [Potassium Gluconate ER] 99 mg PO DAILY Ibuprofen [Motrin] 800 mg PO TID Butalb/APAP/Caff 50-325-40Mg [Fioricet 50-325-40] 1 tab PO DAILY Discharge Medication List Ibuprofen [Motrin] 800 mg PO TID 01/03/22 [History] Butalb/APAP/Caff 50-325-40Mg [Fioricet 50-325-40] 1 tab PO DAILY 04/15/22 [History] HYDROcodone/APAP 7.5-325MG [[place]age 7.5-325] 1 tab PO TID 04/15/22 [History] Potassium Gluconate [Potassium Gluconate ER] 99 mg PO DAILY 04/15/22 [History] Topiramate [Topamax] 100 mg PO BID 04/15/22 [History] Aspirin 81 mg PO DAILY #30 tab 04/17/22 [Rx] Atorvastatin [Lipitor] 20 mg PO DAILY #30 tab 04/17/22 [Rx] Follow up Appointment(s)/Referral(s): Hua Jaramillo MD [Primary Care Provider] - 1-2 days Patient Instructions/Handouts: Chest Pain (GEN), Coronary Artery Disease (GEN) Activity/Diet/Wound Care/Special Instructions: Please see PCP within 1 week. Discharge Disposition: HOME SELF-CARE
== END 2022-04-17 11:10 | disposition home or self-care (01) ==
LOC: EC 20:15 → 6NMEDSUR 22:14
PROVIDERS: ADMIT Internal Medicine; ATTEND Internal Medicine
DX: I25.10 Atherosclerotic heart disease of native coronary artery without angina pectoris (principal); E66.01 Morbid (severe) obesity due to excess calories; F17.200 Nicotine dependence, unspecified, uncomplicated; F32.A Depression, unspecified; F41.9 Anxiety disorder, unspecified; R73.03 Prediabetes; Z82.3 Family history of stroke; Z66 Do not resuscitate; Z82.49 Family history of ischemic heart disease and other diseases of the circulatory system; Z83.3 Family history of diabetes mellitus; Z95.5 Presence of coronary angioplasty implant and graft; Z79.899 Other long term (current) drug therapy; Z87.442 Personal history of urinary calculi
CPT/HCPCS: 96372 ×2; 99285; 36415; 93005; 93458; 80061; 80053; 84443; 83735; 84484 ×2; 85025; 85610; 85730; 83036; 71045; G0378 ×3; C1769; C1894; J2250; J2001; J3010; J1644 ×3; Q9967; 96374

== ENCOUNTER 2022-05-29 11:27 | Inpatient (IN) | payer OTHER ==
[2022-05-29 12:07] LABS: Basophils # (A) 0.1 k/uL (0-0.2); Basophils % (A) 1 %; Eosinophils # (A) 0.2 k/uL (0-0.7); Eosinophils % (A) 2 %; HCT 45.3 % (39.0-53.0); HGB 15.9 gm/dL (13.0-17.5); Lymphocytes # (A) 2.8 k/uL (1.0-4.8); Lymphocytes % (A) 32 %; MCH 31.1 pg (25.0-35.0); MCHC 35.2 g/dL (31.0-37.0); MCV 88.5 fL (80.0-100.0); Monocytes # (A) 0.6 k/uL (0-1.0); Monocytes % (A) 6 %; Neutrophils # (A) 4.9 k/uL (1.3-7.7); Neutrophils % (A) 56 %; Platelet Count 152 k/uL (150-450); RBC 5.12 m/uL (4.30-5.90); RDW 12.6 % (11.5-15.5); WBC 8.8 k/uL (3.8-10.6)
[2022-05-29 12:22] LABS: ALT 53 U/L (4-49); AST 34 U/L (17-59); African American GFR (CKD) >90 (>60 ml/min/1.73 sqM); Albumin 4.4 g/dL (3.5-5.0); Alkaline Phosphatase 74 U/L (38-126); Anion Gap 12 mmol/L; Blood Urea Nitrogen 15 mg/dL (9-20); Calcium 8.9 mg/dL (8.4-10.2); Carbon Dioxide 20 mmol/L (22-30); Chloride 109 mmol/L (98-107); Glucose 122 mg/dL (74-99); Non-African American GFR(CKD) >90 (>60 ml/min/1.73 sqM); Sodium 141 mmol/L (137-145); Total Bilirubin 0.5 mg/dL (0.2-1.3); Total Protein 6.8 g/dL (6.3-8.2)
--- NOTE | 2022-05-29 12:23 | XR ---
EXAMINATION TYPE: XR chest 2V DATE OF EXAM: 05/29/2022 12:19 PM COMPARISON: Chest radiographs from 04/15/2022. TECHNIQUE: XR chest 2V Frontal and lateral views of the chest. CLINICAL INDICATION:Male, 46 years old with history of chest pain/sob; FINDINGS: Lungs/Pleura: There is no evidence of pleural effusion, focal consolidation, or pneumothorax. Bronch ial wall thickening. Pulmonary vascularity: Unremarkable. Heart/mediastinum: Cardiomediastinal silhouette is unremarkable. Musculoskeletal: Multiple level degenerative disc disease changes seen throughout the spine. Cervical fusion hardware. IMPRESSION: Bronchial wall thickening. No focal consolidation. Correlate for bronchitis.
[2022-05-29 12:28] LABS: INR 0.9 (<1.2); Prothrombin Time 10.4 sec (9.0-12.0)
[2022-05-29] MEDS ORDERED: ASPIRIN 81 MG PO STA (15:04)
[2022-05-29] MEDS ORDERED: NITROGLYCERIN OINT 1 INCH/GM PACKET TOPICAL STA (15:04)
--- NOTE | 2022-05-29 15:12 | ED ---
General Adult HPI - General Chief complaint: Chest Pain Stated complaint: Chest Pain, SOB Time Seen by Provider: 05/29/22 14:55 Source: patient, RN notes reviewed, old records reviewed Mode of arrival: wheelchair Limitations: no limitations - History of Present Illness Initial comments: This is a 46-year-old male presents emergency Department with a past medical history significant for some coronary artery disease smoking and high cholesterol. Patient comes into the emergency department today because yesterday he started having chest pain that lasted a couple of minutes and it was heavy in nature and radiated down his left arm and he has shortness of breath associated with it. Patient states it at least 4 episodes of this and the one this morning was much more significant. Patient states currently the pressure is better but still there. Patient denies any recent fever chills or cough per patient denies any diaphoretic episodes. Patient denies any abdominal pain patient's nausea vomiting diarrhea. Patient states his right leg is typic ally swollen and equal to the left but today he is a little larger than the left. - Related Data Home Medications Medication Instructions Recorded Confirmed Ibuprofen [Motrin] 800 mg PO TID 01/03/22 04/15/22 Butalb/APAP/Caff 50-325-40Mg 1 tab PO DAILY 04/15/22 04/15/22 [Fioricet 50-325-40] HYDROcodone/APAP 7.5-325MG [[place] 1 tab PO TID 04/15/22 04/15/22 7.5-325] Potassium Gluconate [Potassium 99 mg PO DAILY 04/15/22 04/15/22 Gluconate ER] Topiramate [Topamax] 100 mg PO BID 04/15/22 04/15/22 Previous Rx's Medication Instructions Recorded Aspirin 81 mg PO DAILY #30 tab 04/17/22 Atorvastatin [Lipitor] 20 mg PO DAILY #30 tab 04/17/22 Allergies Allergy/AdvReac Type Severity Reaction Status Date / Time cephalexin [From Keflex] AdvReac Vomiting Verified 05/29/22 11:45 Review of Systems ROS Statement: Those systems with pertinent positive or pertinent negative responses have been documented in the HPI. ROS Other: All systems not noted in ROS Statement are negative. Past Medical History Past Medical History: Chest Pain / Angina Additional Past Medical History / Comment(s): diverticulitis, kidney stone, back pain, frequent falls History of Any Multi-Drug Resistant Organisms: None Reported Past Surgical History: Heart Catheterization, Orthopedic Surgery Additional Past Surgical History / Comment(s): bernardo knee surgery, neck surg, scopes to abdomen. Past Anesthesia/Blood Transfusion Reactions: No Reported Reaction Past Psychological History: Anxiety, Depression Smoking Status: Current some day smoker Past Alcohol Use History: Occasional Past Drug Use History: Marijuana - Past Family History Father Family Medical History: Diabetes Mellitus Additional Family Medical History / Comment(s): ETOH abuse. Father is . Mother Family Medical History: Cancer Additional Family Medical History / Comment(s): Mother passed from cancer-pt does not know type. family Family Medical History: Cancer, Coronary Artery Disease (CAD), CVA/TIA General Exam - General Exam Comments Initial Comments: GENERAL: Patient is well-developed and well-nourished. Patient is nontoxic and well- hydrated and is in mild distress. ENT: Neck is soft and supple. No significant lymphadenopathy is noted. Oropharynx is clear. Moist mucous membranes. Neck has full range of motion without eliciting any pain. EYES: The sclera were anicteric and conjunctiva were pink and moist. Extraocular movements were intact and pupils were equal round and reactive to light. Eyelids were unremarkable. PULMONARY: Unlabored respirations. Good breath sounds bilaterally. No audible rales rhonchi or wheezing was noted. CARDIOVASCULAR: There is a regular rate and rhythm without any murmurs gallops or rubs. ABDOMEN: Soft and nontender with normal bowel sounds. SKIN: Skin is clear with no lesions or rashes and otherwise unremarkable. NEUROLOGIC: Patient is alert and oriented x3. Cranial nerves II through XII are grossly intact. Motor and sensory are also intact. Normal speech, volume and content. Symmetrical smile. MUSCULOSKELETAL: Normal extremities with adequate strength and full range of motion. Both legs have edema but right is larger than the left which the patient says is abnormal LYMPHATICS: No significant lymphadenopathy is noted PSYCHIATRIC: Normal psychiatric evaluation. Limitations: no limitations Course Vital Signs 05/29/22 05/29/22 05/29/22 11:43 14:58 15:02 Temperature 97.7 F 98.2 F 98.2 F Pulse Rate 63 58 L 54 L Respiratory 18 16 16 Rate Blood Pressure 145/94 142/86 142/86 O2 Sat by Pulse 98 98 99 Oximetry 05/29/22 05/29/22 16:04 17:04 Temperature Pulse Rate 58 L 59 L Respiratory 16 16 Rate Blood Pressure 144/114 135/89 O2 Sat by Pulse 99 99 Oximetry Medical Decision Making - Medical Decision Making EKG shows sinus bradycardia 56 bpm MS interval 289 QRSs 170 QT interval 434 QTC is 427. Patient's EKG shows no ST segment elevation or depression. Chest x-ray shows no acute abnormality. Patient states he still experiencing some chest pressure. I spoke with sounds physician's agreed to admit the patient admitted the patient wrote admitting orders - Lab Data Result diagrams: 05/29/22 11:49 05/29/22 11:49 Lab Results 05/29/22 05/29/22 05/29/22 Range/Units 11:49 11:49 11:49 WBC 8.8 (3.8-10.6) k/uL RBC 5.12 (4.30-5.90) m/uL Hgb 15.9 (13.0-17.5) gm/dL Hct 45.3 (39.0-53.0) % MCV 88.5 (80.0-100.0) fL MCH 31.1 (25.0-35.0) pg MCHC 35.2 (31.0-37.0) g/dL RDW 12.6 (11.5-15.5) % Plt Count 152 (150-450) k/uL MPV 11.0 Neutrophils % 56 % Lymphocytes % 32 % Monocytes % 6 % Eosinophils % 2 % Basophils % 1 % Neutrophils # 4.9 (1.3-7.7) k/uL Lymphocytes # 2.8 (1.0-4.8) k/uL Monocytes # 0.6 (0-1.0) k/uL Eosinophils # 0.2 (0-0.7) k/uL Basophils # 0.1 (0-0.2) k/uL PT 10.4 (9.0-12.0) sec INR 0.9 (<1.2) Sodium 141 (137-145) mmol/L Potassium 4.0 (3.5-5.1) mmol/L Chloride 109 H (98-107) mmol/L Carbon Dioxide 20 L (22-30) mmol/L Anion Gap 12 mmol/L BUN 15 (9-20) mg/dL Creatinine 0.96 (0.66-1.25) mg/dL Est GFR (CKD-EPI)AfAm >90 (>60 ml/min/1.73 sqM) Est GFR (CKD-EPI)NonAf >90 (>60 ml/min/1.73 sqM) Glucose 122 H (74-99) mg/dL Calcium 8.9 (8.4-10.2) mg/dL Total Bilirubin 0.5 (0.2-1.3) mg/dL AST 34 (17-59) U/L ALT 53 H (4-49) U/L Alkaline Phosphatase 74 (38-126) U/L Troponin I (0.000-0.034) ng/mL Total Protein 6.8 (6.3-8.2) g/dL Albumin 4.4 (3.5-5.0) g/dL 05/29/22 05/29/22 Range/Units 11:49 16:02 WBC (3.8-10.6) k/uL RBC (4.30-5.90) m/uL Hgb (13.0-17.5) gm/dL Hct (39.0-53.0) % MCV (80.0-100.0) fL MCH (25.0-35.0) pg MCHC (31.0-37.0) g/dL RDW (11.5-15.5) % Plt Count (150-450) k/uL MPV Neutrophils % % Lymphocytes % % Monocytes % % Eosinophils % % Basophils % % Neutrophils # (1.3-7.7) k/uL Lymphocytes # (1.0-4.8) k/uL Monocytes # (0-1.0) k/uL Eosinophils # (0-0.7) k/uL Basophils # (0-0.2) k/uL PT (9.0-12.0) sec INR (<1.2) Sodium (137-145) mmol/L Potassium (3.5-5.1) mmol/L Chloride (98-107) mmol/L Carbon Dioxide (22-30) mmol/L Anion Gap mmol/L BUN (9-20) mg/dL Creatinine (0.66-1.25) mg/dL Est GFR (CKD-EPI)AfAm (>60 ml/min/1.73 sqM) Est GFR (CKD-EPI)NonAf (>60 ml/min/1.73 sqM) Glucose (74-99) mg/dL Calcium (8.4-10.2) mg/dL Total Bilirubin (0.2-1.3) mg/dL AST (17-59) U/L ALT (4-49) U/L Alkaline Phosphatase (38-126) U/L Troponin I <0.012 <0.012 (0.000-0.034) ng/mL Total Protein (6.3-8.2) g/dL Albumin (3.5-5.0) g/dL Disposition Clinical Impression: Chest pain Disposition: ADMITTED IP TO THIS HOSP Referrals: Hua Jaramillo MD [Primary Care Provider] - 1-2 days Time of Disposition: 17:33
--- NOTE | 2022-05-29 15:54 | US ---
EXAMINATION TYPE: US venous doppler duplex LE RT DATE OF EXAM: 05/29/2022 3:47 PM COMPARISON: NONE CLINICAL HISTORY: Swollen right leg. SIDE PERFORMED: Right TECHNIQUE: The lower extremity deep venous system is examined utilizing real time linear array sonog annika with graded compression, doppler sonography and color-flow sonography. VESSELS IMAGED: Common Femoral Vein Deep Femoral Vein Greater Saphenous Vein * Femoral Vein Popliteal Vein Small Saphenous Vein * Proximal Calf Veins (* superficial vessels) Grayscale, color doppler, spectral doppler imaging performed of the deep veins of the lower extremiti es. There is normal flow, compressibility, vascular waveforms. Right Leg: Negative for DVT IMPRESSION: No deep venous thrombosis of the right lower extremity.
[2022-05-29] MEDS ORDERED: MORPHINE SULFATE 2 MG/ML SYRINGE IVP PRN (17:32)
[2022-05-29] MEDS ORDERED: ACETAMINOPHEN TAB 325 MG TAB PO PRN (17:32)
[2022-05-29] MEDS ORDERED: NALOXONE 0.4 MG/ML 1 ML VIAL IV PRN (17:32)
[2022-05-29] MEDS ORDERED: NITROGLYCERIN SL TABS 0.4 MG TAB SUBLINGUAL PRN (17:33)
--- NOTE | 2022-05-29 17:44 | P.HPIM ---
History of Present Illness H&P Date: 05/29/22 Patient is a 46-year-old male with PMH of CAD, chronic lower back pain, history of migraine presents ED for chest pain. Patient reports chest pain started yesterday around 4:30 PM as he was sitting at his desk. Chest pain is left- sided pressure-like in nature. Pain radiated to the left upper extremity. Pain was 6 out of 10 in severity. Her reported numbness in his left arm. Pain is associated with dizziness and nausea. He denied any diaphoresis. His symptoms are concerning so he decided to present to the ED. Of note, patient had a recent cardiac cath done in April 2022 which showed 30% stenosis of mid LAD. He also reported lower extremity edema right greater than left. He reports smoking 1 pack of cigarettes daily. Patient denies any headache, fever or chills, shortness of breath, palpitations, changes in urination or bowel habits. No changes in appetite or weight. Patient denies any lightheadedness, numbness/weakness/tingling of extremities. In the ED, his vital signs were stable. CBC unremarkable. Coagulation panel negative. CMP showed chloride of 109, bicarb of 20, glucose 122 and ALT of 53. Troponin was less than 0.0122 with EKG showing sinus bradycardia. Venous Doppler negative for DVT. Chest x- ray showed findings of bronchitis. Patient admitted for chest pain, rule out acute coronary syndrome cardiology consultation. Review of systems is performed and is negative except above. General: non toxic, no distress, morbidly obese Derm: warm, dry Head: atraumatic, normocephalic, symmetric Eyes: EOMI, no lid lag, anicteric sclera Mouth: no lip lesion, mucus membranes moist Cardiovascular: S1S2 reg, no murmur, positive posterior tibial pulse bilateral, Lungs: CTA bilateral, no rhonchi, no rales , no accessory muscle use Abdominal: soft, nontender to palpation, no guarding, no appreciable organomegaly Ext: no gross muscle atrophy, no edema, no contractures Neuro: CN II-XI grossly intact, no focal neuro deficits Psych: Alert, oriented, appropriate affect #Chest pain with history of CAD #Acute bronchitis #Chronic lower back pain #History of migraine Initial troponin and EKG negative. Cardiac cath done in April 2022 shows LAD 30% stenosis. Trend troponin/EKG to rule out ACS. Continue aspirin and Lipitor. Telemetry monitoring. Obtain echocardiogram. Cardiology consulted for further management. Start azithromycin 500 mg by mouth for 3 days. Restart [place] and ibuprofen as needed for chronic lower back pain. Restart Topamax, Fioricet for history of migraine. DVT prophylaxis: Lovenox Discussed with: Patient, ED physician Anticipated discharge: 1-[address]: Home A total of 30 minutes was spent on the care of this complex patient more than 50% of the time was spent in counseling and care coordination. Patient illnesses decision-maker if he can't make decisions for himself. Patient would like to be full code. Past Medical History Past Medical History: Chest Pain / Angina Additional Past Medical History / Comment(s): diverticulitis, kidney stone, back pain, frequent falls History of Any Multi-Drug Resistant Organisms: None Reported Past Surgical History: Heart Catheterization, Orthopedic Surgery Additional Past Surgical History / Comment(s): bernardo knee surgery, neck surg, scopes to abdomen. Past Anesthesia/Blood Transfusion Reactions: No Reported Reaction Past Psychological History: Anxiety, Depression Smoking Status: Current some day smoker Past Alcohol Use History: Occasional Past Drug Use History: Marijuana - Past Family History Father Family Medical History: Diabetes Mellitus Additional Family Medical History / Comment(s): ETOH abuse. Father is . Mother Family Medical History: Cancer Additional Family Medical History / Comment(s): Mother passed from cancer-pt does not know type. family Family Medical History: Cancer, Coronary Artery Disease (CAD), CVA/TIA Medications and Allergies Home Medications Medication Instructions Recorded Confirmed Type Ibuprofen [Motrin] 800 mg PO TID 01/03/22 05/29/22 History Butalb/APAP/Caff 50-325-40Mg 1 tab PO DAILY 04/15/22 05/29/22 History [Fioricet 50-325-40] HYDROcodone/APAP 7.5-325MG [[place] 1 tab PO TID 04/15/22 05/29/22 History 7.5-325] Topiramate [Topamax] 100 mg PO BID 04/15/22 05/29/22 History Aspirin 81 mg PO DAILY #30 tab 04/17/22 05/29/22 Rx Atorvastatin [Lipitor] 20 mg PO DAILY #30 tab 04/17/22 05/29/22 Rx Allergies Allergy/AdvReac Type Severity Reaction Status Date / Time cephalexin [From Keflex] AdvReac Vomiting Verified 05/29/22 17:34 Physical Exam Vitals: Vital Signs Temp Pulse Resp BP Pulse Ox 05/29/22 17:04 59 L 16 135/89 99 05/29/22 16:04 58 L 16 144/114 99 05/29/22 15:02 98.2 F 54 L 16 142/86 99 05/29/22 14:58 98.2 F 58 L 16 142/86 98 05/29/22 11:43 97.7 F 63 18 145/94 98 Intake and Output 05/29/22 05/29/22 05/29/22 06:59 14:59 22:59 Other: Weight 204.117 kg Results CBC & Chem 7: 05/29/22 11:49 05/29/22 11:49 Labs: Abnormal Lab Results - Last 24 Hours (Table) 05/29/22 Range/Units 11:49 Chloride 109 H (98-107) mmol/L Carbon Dioxide 20 L (22-30) mmol/L Glucose 122 H (74-99) mg/dL ALT 53 H (4-49) U/L
[2022-05-29] MEDS: NITROGLYCERIN OINT 1 INCH/GM PACKET TOPICAL SCH (17:46)
[2022-05-29] MEDS ORDERED: AZITHROMYCIN 500 MG TAB PO SCH (18:00)
[2022-05-29] MEDS: IBUPROFEN 800 MG TAB PO PRN (19:33)
[2022-05-29] MEDS: HYDROcodone/APAP 7.5-325MG 1 EACH TAB PO PRN (19:33)
[2022-05-29] MEDS: TOPIRAMATE 100 MG TAB PO SCH (21:14)
[2022-05-30] MEDS: NITROGLYCERIN OINT 1 INCH/GM PACKET TOPICAL SCH ×2 (00:03→05:24)
[2022-05-30 04:23] VITALS: RESP 20
[2022-05-30] MEDS ORDERED: ATORVASTATIN 20 MG TAB PO SCH (09:00)
[2022-05-30] MEDS ORDERED: ENOXAPARIN 40 MG/0.4 ML SYRINGE SQ SCH (09:00)
[2022-05-30] MEDS ORDERED: BUTALB/APAP/CAFF 50-325-40MG TAB PO SCH (09:00)
[2022-05-30] MEDS ORDERED: ASPIRIN 325 MG TAB PO SCH (09:00)
[2022-05-30] MEDS ORDERED: ASPIRIN 81 MG PO SCH (09:00)
[2022-05-30 09:05] LABS: African American GFR (CKD) 103.4 (60.0-200.0); Blood Urea Nitrogen 17.9 mg/dL (9.0-27.0); Carbon Dioxide 20.9 mmol/L (20.0-27.5); Chloride 105 mmol/L (96-109); Glucose 105 mg/dL (70-110); Non-African American GFR(CKD) 89.2 (60.0-200.0); Potassium 4.1 mmol/L (3.5-5.5); Sodium 137 mmol/L (135-145)
[2022-05-30 09:06] LABS: Chol/HDL Ratio 4.34 Ratio; LDL Cholesterol,Calculated 57.8 mg/dL (0.0-131.0)
[2022-05-30 09:17] VITALS: BP 150/95; TEMP 97.6
[2022-05-30] MEDS: TOPIRAMATE 100 MG TAB PO SCH (09:35)
[2022-05-30 09:36] LABS: Basophils # (A) 0.05 X 10*3/uL (0.00-0.10); Basophils % (A) 0.6 %; Eosinophils # (A) 0.15 X 10*3/uL (0.04-0.35); Eosinophils % (A) 1.7 %; HCT 43.8 % (39.6-50.0); Immature Grans, Automated 0.3 %; Lymphocytes # (A) 2.88 X 10*3/uL (0.90-5.00); Lymphocytes % (A) 33.1 %; MCH 30.5 pg (27.0-32.0); MCHC 34.2 g/dL (32.0-37.0); MCV 89.2 fL (80.0-97.0); Mean Platelet Volume 13.2 fL (9.5-12.2); Monocytes % (A) 10.4 %; NRBC Per 100 WBC 0 /100 WBCS (0.0-0.0); Neutrophils # (A) 4.68 X 10*3/uL (1.80-7.70); Neutrophils % (A) 53.9 %; Platelet Count 164 X 10*3/uL (140-440); RBC 4.91 X 10*6/uL (4.40-5.60); RDW 12.6 % (11.5-14.5); WBC 8.69 X 10*3/uL (4.50-10.00)
[2022-05-30] MEDS: IBUPROFEN 800 MG TAB PO PRN (09:46)
[2022-05-30] MEDS: HYDROcodone/APAP 7.5-325MG 1 EACH TAB PO PRN (09:47)
--- NOTE | 2022-05-30 10:05 | P.CRDCN ---
History of Present Illness History of present illness: HISTORY OF PRESENTING ILLNESS This is a pleasant 46-year-old male past medical history significant for mild nonobstructive coronary artery disease, dyslipidemia, chronic nicotine dependence. 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 We have been asked to see in consultation for chest pain. Patient presented to the emergency department with multiple symptoms. He states yesterday in the afternoon he was on his computer, he states he was typing. He had an episode of chest discomfort, felt numbness in his left arm. He presented to the ER for further evaluation. Non- exertional. No specific aggravating or alleviating factors. He denies any vomiting, palpitations, diaphoresis. He has been also having generalized weakness, numbness and tingling in the left arm, occasional dizziness, tire dness, fatigue, some shortness of breath. He has been having these symptoms for a few days. He denies any cough, fever, chills. He denies any lightheadedness, syncope or near syncope. He denies any history of [place], stroke, seizures, diabetes. DIAGNOSTICS * EKG reveals sinus bradycardia, heart rate 56, nonspecific T-wave abnormalities. No acute ischemia noted. * Recent cardiac catheterization 04/16/2022 revealed mild coronary disease in the mid LAD 30% stenosis, otherwise mild luminal irregularities. Elevated left- sided filling pressures as well as elevated blood pressure throughout procedure. * Telemetry tracings not available to review an dictation. * Chest xray bronchial wall thickening reported. * Venous Doppler negative for DVT right lower extremity * Laboratory reviewed, troponin negative 4, sodium 137, potassium 4.1, BUN 17, serum creatinine 1.0, triglycerides 196, cholesterol 126, LDL 57, HDL 29, CBC unremarkable * Echocardiogram 2017 revealed EF 5055 percent, mild tricuspid regurgitation * Current home cardiac medications include aspirin 81 mg daily, atorvastatin 20 mg daily REVIEW OF SYSTEMS At the time of my exam: CONSTITUTIONAL: Denies fever or chills. +generalized fatigue, tiredness CARDIOVASCULAR: + chest pain, Denies shortness of breath, orthopnea, PND or palpitations. RESPIRATORY: Denies cough. GASTROINTESTINAL: Denies abdominal pain, diarrhea, constipation, nausea or vomiting. MUSCULOSKELETAL: Denies myalgias. NEUROLOGIC: + numbness left arm Denies tingling, headacbe or weakness. ENDOCRINE: + fatigue,Denies weight change, polydipsia or polyurina. GENITOURINARY: Denies burning, hematuria or urgency with micturation. HEMATOLOGIC: Denies history of anemia or bleeding. PHYSICAL EXAMINATION Blood pressure 150/95, heart 59, afebrile, saturations 90% on room air CONSTITUTIONAL: No apparent distress. HEENT: Head is normocephalic. Pupils are equal, round. Sclerae anicteric. Mucous membranes of the mouth are moist. No JVD. No carotid bruit. CHEST EXAMINATION: Lungs are mild wheeze bilaterally to auscultation. No chest wall tenderness is noted on palpation or with deep breathing. HEART EXAMINATION: Regular rate and rhythm. S1, S2 heard. No murmurs, gallops or rub. ABDOMEN: Soft, nontender. Positive bowel sounds. EXTREMITIES: 2+ peripheral pulses, no lower extremity edema and no calf tenderness. NEUROLOGIC EXAMINATION: Patient is awake, alert and oriented x3. ASSESSMENT Chest pain, acute coronary syndrome has been ruled out Mild coronary artery disease, recent cardiac cath on 04/16/2022 Symptoms of generalized fatigue Dyslipidemia Chronic nicotine dependence PLAN An acute coronary event has been ruled out with no EKG evidence of ischemia and negative cardiac enzymes x 4. Recent cardiac cath on 04/16/2022 with mild CAD. Recommend Covid-19 test with patient's symptoms Obtain 2D echocardiogram and doppler study to assess cardiac structure and function. If echocardiogram with no acute findings, no further inpatient workup from cardiology perspective. Recommend patient follow up outpatient Nurse practitioner note has been reviewed by physician. Signing provider agrees with the documented findings, assessment, and plan of care. Past Medical History Past Medical History: Chest Pain / Angina Additional Past Medical History / Comment(s): diverticulitis, kidney stone, back pain, frequent falls History of Any Multi-Drug Resistant Organisms: None Reported Past Surgical History: Heart Catheterization, Orthopedic Surgery Additional Past Surgical History / Comment(s): bernardo knee surgery, neck surg, scopes to abdomen. Past Anesthesia/Blood Transfusion Reactions: No Reported Reaction Past Psychological History: Anxiety, Depression Smoking Status: Current some day smoker Past Alcohol Use History: Occasional Past Drug Use History: Marijuana - Past Family History Father Family Medical History: Diabetes Mellitus Additional Family Medical History / Comment(s): ETOH abuse. Father is . Mother Family Medical History: Cancer Additional Family Medical History / Comment(s): Mother passed from cancer-pt does not know type. family Family Medical History: Cancer, Coronary Artery Disease (CAD), CVA/TIA Medications and Allergies Home Medications Medication Instructions Recorded Confirmed Type Ibuprofen [Motrin] 800 mg PO TID 01/03/22 05/29/22 History Butalb/APAP/Caff 50-325-40Mg 1 tab PO DAILY 04/15/22 05/29/22 History [Fioricet 50-325-40] HYDROcodone/APAP 7.5-325MG [[place] 1 tab PO TID 04/15/22 05/29/22 History 7.5-325] Topiramate [Topamax] 100 mg PO BID 04/15/22 05/29/22 History Aspirin 81 mg PO DAILY #30 tab 04/17/22 05/29/22 Rx Atorvastatin [Lipitor] 20 mg PO DAILY #30 tab 04/17/22 05/29/22 Rx Allergies Allergy/AdvReac Type Severity Reaction Status Date / Time cephalexin [From Keflex] AdvReac Vomiting Verified 05/29/22 17:34 Physical Exam Vitals: Vital Signs Temp Pulse Resp BP Pulse Ox 05/30/22 06:59 58 L 05/30/22 06:56 128/89 05/30/22 04:00 48 L 20 120/61 96 05/30/22 00:47 50 L 18 139/75 97 05/29/22 19:34 69 18 104/90 97 05/29/22 18:53 56 L 16 152/85 99 05/29/22 17:50 58 L 16 131/71 99 05/29/22 17:04 59 L 16 135/89 99 05/29/22 16:04 58 L 16 144/114 99 05/29/22 15:02 98.2 F 54 L 16 142/86 99 05/29/22 14:58 98.2 F 58 L 16 142/86 98 05/29/22 11:43 97.7 F 63 18 145/94 98 Results 05/30/22 04:45 05/30/22 04:45 Cardiac Enzymes 05/29/22 05/29/22 05/29/22 Range/Units 11:49 11:49 16:02 AST 34 (17-59) U/L Troponin I <0.012 <0.012 (0.000-0.034) ng/mL 05/29/22 05/29/22 Range/Units 18:07 21:25 AST (17-59) U/L Troponin I <0.012 <0.012 (0.000-0.034) ng/mL Coagulation 05/29/22 Range/Units 11:49 PT 10.4 (9.0-12.0) sec CBC 05/29/22 Range/Units 11:49 WBC 8.8 (3.8-10.6) k/uL RBC 5.12 (4.30-5.90) m/uL Hgb 15.9 (13.0-17.5) gm/dL Hct 45.3 (39.0-53.0) % Plt Count 152 (150-450) k/uL Comprehensive Metabolic Panel 05/29/22 Range/Units 11:49 Sodium 141 (137-145) mmol/L Potassium 4.0 (3.5-5.1) mmol/L Chloride 109 H (98-107) mmol/L Carbon Dioxide 20 L (22-30) mmol/L BUN 15 (9-20) mg/dL Creatinine 0.96 (0.66-1.25) mg/dL Glucose 122 H (74-99) mg/dL Calcium 8.9 (8.4-10.2) mg/dL AST 34 (17-59) U/L ALT 53 H (4-49) U/L Alkaline Phosphatase 74 (38-126) U/L Total Protein 6.8 (6.3-8.2) g/dL Albumin 4.4 (3.5-5.0) g/dL Current Medications Generic Name Dose Route Start Last Admin Trade Name Armandoq PRN Reason Stop Dose Admin Acetaminophen 650 mg 05/29/22 17:32 Acetaminophen Tab 325 Mg Tab PO Q6HR PRN Mild Pain or Fever > 100.5 Acetaminophen/Butalbital/Caffeine 1 each 05/30/22 09:00 Butalb/Apap/Caff 50-325-40mg Tab PO DAILY [facility] Hydrocodone Bitart/Acetaminophen 1 each 05/29/22 17:28 05/29/22 19:33 Hydrocodone/Apap 7.5-325mg 1 Each Tab PO 1 each TID PRN Administration Breakthrough Pain Aspirin 81 mg 05/30/22 09:00 Aspirin 81 Mg PO DAILY [facility] Atorvastatin Calcium 20 mg 05/30/22 09:00 Atorvastatin 20 Mg Tab PO DAILY [facility] Azithromycin 500 mg 05/29/22 18:00 05/29/22 18:07 Azithromycin 500 Mg Tab PO 05/31/22 18:01 500 mg DAILY@1800 [facility] Administration Protocol Enoxaparin Sodium 40 mg 05/30/22 09:00 Enoxaparin 40 Mg/0.4 Ml Syringe SQ DAILY [facility] Ibuprofen 800 mg 05/29/22 17:28 05/29/22 19:33 Ibuprofen 800 Mg Tab PO 800 mg TID PRN Administration Pain Morphine Sulfate 2 mg 05/29/22 17:32 Morphine Sulfate 2 Mg/Ml Syringe IVP Q4HR PRN Severe Pain (Scale 7 to 10) Naloxone HCl 0.2 mg 05/29/22 17:32 Naloxone 0.4 Mg/Ml 1 Ml Vial IV Q2M PRN Opioid Reversal Nitroglycerin 0.4 mg 05/29/22 17:33 Nitroglycerin Sl Tabs 0.4 Mg Tab SUBLINGUAL Q5M PRN Chest Pain Nitroglycerin 1 inch 05/29/22 18:00 05/30/22 05:24 Nitroglycerin Oint 1 Inch/Gm Packet TOPICAL Not Given Q6HR [facility] Topiramate 100 mg 05/29/22 21:00 05/29/22 21:14 Topiramate 100 Mg Tab PO 100 mg BID [facility] Administration 05/29/22 11:49 05/29/22 11:49
--- NOTE | 2022-05-30 10:05 | P.CRDCN ---
History of Present Illness History of present illness: HISTORY OF PRESENTING ILLNESS This is a pleasant 46-year-old male past medical history significant for mild nonobstructive coronary artery disease, dyslipidemia, chronic nicotine dependence. 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 We have been asked to see in consultation for chest pain. Patient presented to the emergency department with multiple symptoms. He states yesterday in the afternoon he was on his computer, he states he was typing. He had an episode of chest discomfort, felt numbness in his left arm. He presented to the ER for further evaluation. Non- exertional. No specific aggravating or alleviating factors. He denies any vomiting, palpitations, diaphoresis. He has been also having generalized weakness, numbness and tingling in the left arm, occasional dizziness, tire dness, fatigue, some shortness of breath. He has been having these symptoms for a few days. He denies any cough, fever, chills. He denies any lightheadedness, syncope or near syncope. He denies any history of [place], stroke, seizures, diabetes. DIAGNOSTICS * EKG reveals sinus bradycardia, heart rate 56, nonspecific T-wave abnormalities. No acute ischemia noted. * Recent cardiac catheterization 04/16/2022 revealed mild coronary disease in the mid LAD 30% stenosis, otherwise mild luminal irregularities. Elevated left- sided filling pressures as well as elevated blood pressure throughout procedure. * Telemetry tracings not available to review an dictation. * Chest xray bronchial wall thickening reported. * Venous Doppler negative for DVT right lower extremity * Laboratory reviewed, troponin negative 4, sodium 137, potassium 4.1, BUN 17, serum creatinine 1.0, triglycerides 196, cholesterol 126, LDL 57, HDL 29, CBC unremarkable * Echocardiogram 2017 revealed EF 5055 percent, mild tricuspid regurgitation * Current home cardiac medications include aspirin 81 mg daily, atorvastatin 20 mg daily REVIEW OF SYSTEMS At the time of my exam: CONSTITUTIONAL: Denies fever or chills. +generalized fatigue, tiredness CARDIOVASCULAR: + chest pain, Denies shortness of breath, orthopnea, PND or palpitations. RESPIRATORY: Denies cough. GASTROINTESTINAL: Denies abdominal pain, diarrhea, constipation, nausea or vomiting. MUSCULOSKELETAL: Denies myalgias. NEUROLOGIC: + numbness left arm Denies tingling, headacbe or weakness. ENDOCRINE: + fatigue,Denies weight change, polydipsia or polyurina. GENITOURINARY: Denies burning, hematuria or urgency with micturation. HEMATOLOGIC: Denies history of anemia or bleeding. PHYSICAL EXAMINATION Blood pressure 150/95, heart 59, afebrile, saturations 90% on room air CONSTITUTIONAL: No apparent distress. HEENT: Head is normocephalic. Pupils are equal, round. Sclerae anicteric. Mucous membranes of the mouth are moist. No JVD. No carotid bruit. CHEST EXAMINATION: Lungs are mild wheeze bilaterally to auscultation. No chest wall tenderness is noted on palpation or with deep breathing. HEART EXAMINATION: Regular rate and rhythm. S1, S2 heard. No murmurs, gallops or rub. ABDOMEN: Soft, nontender. Positive bowel sounds. EXTREMITIES: 2+ peripheral pulses, no lower extremity edema and no calf tenderness. NEUROLOGIC EXAMINATION: Patient is awake, alert and oriented x3. ASSESSMENT Chest pain, acute coronary syndrome has been ruled out Mild coronary artery disease, recent cardiac cath on 04/16/2022 Symptoms of generalized fatigue Dyslipidemia Chronic nicotine dependence PLAN An acute coronary event has been ruled out with no EKG evidence of ischemia and negative cardiac enzymes x 4. Recent cardiac cath on 04/16/2022 with mild CAD. Recommend Covid-19 test with patient's symptoms Obtain 2D echocardiogram and doppler study to assess cardiac structure and function. If echocardiogram with no acute findings, no further inpatient workup from cardiology perspective. Recommend patient follow up outpatient Nurse practitioner note has been reviewed by physician. Signing provider agrees with the documented findings, assessment, and plan of care. Past Medical History Past Medical History: Chest Pain / Angina Additional Past Medical History / Comment(s): diverticulitis, kidney stone, back pain, frequent falls History of Any Multi-Drug Resistant Organisms: None Reported Past Surgical History: Heart Catheterization, Orthopedic Surgery Additional Past Surgical History / Comment(s): bernardo knee surgery, neck surg, scopes to abdomen. Past Anesthesia/Blood Transfusion Reactions: No Reported Reaction Past Psychological History: Anxiety, Depression Smoking Status: Current some day smoker Past Alcohol Use History: Occasional Past Drug Use History: Marijuana - Past Family History Father Family Medical History: Diabetes Mellitus Additional Family Medical History / Comment(s): ETOH abuse. Father is . Mother Family Medical History: Cancer Additional Family Medical History / Comment(s): Mother passed from cancer-pt does not know type. family Family Medical History: Cancer, Coronary Artery Disease (CAD), CVA/TIA Medications and Allergies Home Medications Medication Instructions Recorded Confirmed Type Ibuprofen [Motrin] 800 mg PO TID 01/03/22 05/29/22 History Butalb/APAP/Caff 50-325-40Mg 1 tab PO DAILY 04/15/22 05/29/22 History [Fioricet 50-325-40] HYDROcodone/APAP 7.5-325MG [[place] 1 tab PO TID 04/15/22 05/29/22 History 7.5-325] Topiramate [Topamax] 100 mg PO BID 04/15/22 05/29/22 History Aspirin 81 mg PO DAILY #30 tab 04/17/22 05/29/22 Rx Atorvastatin [Lipitor] 20 mg PO DAILY #30 tab 04/17/22 05/29/22 Rx Allergies Allergy/AdvReac Type Severity Reaction Status Date / Time cephalexin [From Keflex] AdvReac Vomiting Verified 05/29/22 17:34 Physical Exam Vitals: Vital Signs Temp Pulse Resp BP Pulse Ox 05/30/22 06:59 58 L 05/30/22 06:56 128/89 05/30/22 04:00 48 L 20 120/61 96 05/30/22 00:47 50 L 18 139/75 97 05/29/22 19:34 69 18 104/90 97 05/29/22 18:53 56 L 16 152/85 99 05/29/22 17:50 58 L 16 131/71 99 05/29/22 17:04 59 L 16 135/89 99 05/29/22 16:04 58 L 16 144/114 99 05/29/22 15:02 98.2 F 54 L 16 142/86 99 05/29/22 14:58 98.2 F 58 L 16 142/86 98 05/29/22 11:43 97.7 F 63 18 145/94 98 Results 05/30/22 04:45 05/30/22 04:45 Cardiac Enzymes 05/29/22 05/29/22 05/29/22 Range/Units 11:49 11:49 16:02 AST 34 (17-59) U/L Troponin I <0.012 <0.012 (0.000-0.034) ng/mL 05/29/22 05/29/22 Range/Units 18:07 21:25 AST (17-59) U/L Troponin I <0.012 <0.012 (0.000-0.034) ng/mL Coagulation 05/29/22 Range/Units 11:49 PT 10.4 (9.0-12.0) sec CBC 05/29/22 Range/Units 11:49 WBC 8.8 (3.8-10.6) k/uL RBC 5.12 (4.30-5.90) m/uL Hgb 15.9 (13.0-17.5) gm/dL Hct 45.3 (39.0-53.0) % Plt Count 152 (150-450) k/uL Comprehensive Metabolic Panel 05/29/22 Range/Units 11:49 Sodium 141 (137-145) mmol/L Potassium 4.0 (3.5-5.1) mmol/L Chloride 109 H (98-107) mmol/L Carbon Dioxide 20 L (22-30) mmol/L BUN 15 (9-20) mg/dL Creatinine 0.96 (0.66-1.25) mg/dL Glucose 122 H (74-99) mg/dL Calcium 8.9 (8.4-10.2) mg/dL AST 34 (17-59) U/L ALT 53 H (4-49) U/L Alkaline Phosphatase 74 (38-126) U/L Total Protein 6.8 (6.3-8.2) g/dL Albumin 4.4 (3.5-5.0) g/dL Current Medications Generic Name Dose Route Start Last Admin Trade Name Armandoq PRN Reason Stop Dose Admin Acetaminophen 650 mg 05/29/22 17:32 Acetaminophen Tab 325 Mg Tab PO Q6HR PRN Mild Pain or Fever > 100.5 Acetaminophen/Butalbital/Caffeine 1 each 05/30/22 09:00 Butalb/Apap/Caff 50-325-40mg Tab PO DAILY [facility] Hydrocodone Bitart/Acetaminophen 1 each 05/29/22 17:28 05/29/22 19:33 Hydrocodone/Apap 7.5-325mg 1 Each Tab PO 1 each TID PRN Administration Breakthrough Pain Aspirin 81 mg 05/30/22 09:00 Aspirin 81 Mg PO DAILY [facility] Atorvastatin Calcium 20 mg 05/30/22 09:00 Atorvastatin 20 Mg Tab PO DAILY [facility] Azithromycin 500 mg 05/29/22 18:00 05/29/22 18:07 Azithromycin 500 Mg Tab PO 05/31/22 18:01 500 mg DAILY@1800 [facility] Administration Protocol Enoxaparin Sodium 40 mg 05/30/22 09:00 Enoxaparin 40 Mg/0.4 Ml Syringe SQ DAILY [facility] Ibuprofen 800 mg 05/29/22 17:28 05/29/22 19:33 Ibuprofen 800 Mg Tab PO 800 mg TID PRN Administration Pain Morphine Sulfate 2 mg 05/29/22 17:32 Morphine Sulfate 2 Mg/Ml Syringe IVP Q4HR PRN Severe Pain (Scale 7 to 10) Naloxone HCl 0.2 mg 05/29/22 17:32 Naloxone 0.4 Mg/Ml 1 Ml Vial IV Q2M PRN Opioid Reversal Nitroglycerin 0.4 mg 05/29/22 17:33 Nitroglycerin Sl Tabs 0.4 Mg Tab SUBLINGUAL Q5M PRN Chest Pain Nitroglycerin 1 inch 05/29/22 18:00 05/30/22 05:24 Nitroglycerin Oint 1 Inch/Gm Packet TOPICAL Not Given Q6HR [facility] Topiramate 100 mg 05/29/22 21:00 05/29/22 21:14 Topiramate 100 Mg Tab PO 100 mg BID [facility] Administration 05/29/22 11:49 05/29/22 11:49
[2022-05-30] MEDS ORDERED: MAG HYDROX/AL HYDROX/SIMETH 30 ML, HYOSCYAMINE ELIXIR 10 ML, LIDOCAINE VISCOUS 2% 10 ML PO ONE ×3 (13:01)
--- NOTE | 2022-05-30 13:16 | CA ---
Transthoracic Echo Report Name: Tam Jarvis Age: 46 Gender: M : 1975 Exam Date: 05/30/2022 08:04 Exam Location: [facility] Ht (in): 77 Wt (lb): 450 Ordering Physician: Heather Zapata MD Attending/Referring Phys: Auto Inspector Nikkie Hicks RDCS Procedure CPT: Indications: CP Cardiac Hx: Technical Quality: Technically difficult study Contrast 1: Lumason Total Dose (mL): 4 Contrast 2: Total Dose (mL): MEASUREMENTS (Male / Female) Normal Values 2D ECHO LV Diastolic Diameter PLAX 5.3 cm 4.2 - 5.9 / 3.9 - 5.3 cm LV Systolic Diameter PLAX 3.8 cm IVS Diastolic Thickness 1.6 cm 0.6 - 1.0 / 0.6 - 0.9 cm LVPW Diastolic Thickness 1.5 cm 0.6 - 1.0 / 0.6 - 0.9 cm LV Relative Wall Thickness 0.6 RV Internal Dim ED PLAX 3.4 cm LA Systolic Diameter LX 3.8 cm 3.0 - 4.0 / 2.7 - 3.8 cm M-MODE Aortic Root Diameter MM 3.6 cm MV E Point Septal Separation 2.7 cm AV Cusp Separation MM 2.0 cm DOPPLER AV Peak Velocity 161.2 cm/s AV Peak Gradient 10.4 mmHg MV Area PHT 3.3 cm??? Mitral E Point Velocity 95.3 cm/s Mitral A Point Velocity 65.5 cm/s Mitral E to A Ratio 1.5 MV Deceleration Time 231.8 ms MV E' Velocity 9.7 cm/s Mitral E to MV E' Ratio 9.8 FINDINGS Left Ventricle Left ventricular ejection fraction is estimated at 50-55 %. Left ventricular cavity size normal. Moderate concentric left ventricular hypertrophy. Right Ventricle Mild right ventricular dilatation. Unable to estimate the right ventricular systolic pressure. Right Atrium Normal right atrial size. Left Atrium Normal left atrial size. Mitral Valve Structurally normal mitral valve. No mitral stenosis, regurgitation or prolapse. Aortic Valve Aortic valve not well visualized. No aortic valve stenosis or regurgitation. Tricuspid Valve Structurally normal tricuspid valve. Pulmonic Valve Pulmonic valve not well visualized. Pericardium Normal pericardium. No pericardial effusion. Aorta Normal size aortic root and proximal ascending aorta. CONCLUSIONS Moderate increased left ventricular wall thickening Left ventricular ejection fraction 50-55% No mitral regurgitation No pericardial effusion Previewed by: Dr. Doug Gonsalez DO (Electronically Signed) Final Date: 30 May 2022 13:15
--- NOTE | 2022-05-30 13:22 | P.DS ---
Providers Date of admission: 05/29/22 17:33 Expected date of discharge: 05/30/22 Attending physician: Heather Zapata MD Consults: 05/29/22 17:33 Consult Physician Routine Consulting Provider: Oneal Shields Consult Reason/Comments: chest pain Do you want consulting provider notified?: Yes Primary care physician: Hua Jaramillo Hospital Course: Discharge Diagnosis: Chest pain, acute coronary event ruled out. Acute bronchitis, continue azithromycin to complete 5 day course. Recommend smoking cessation. History of nonobstructive coronary artery disease, continue daily medication regimen with aspirin and atorvastatin, recommend following heart healthy and carb consistent diet. Nicotine dependence, recommend smoking cessation. Hyperlipidemia, continue daily medication regimen with atorvastatin. Morbid obesity, recommend outpatient weight management program. Hospital Course: Patient is a very pleasant 46-year-old male with a past medical history of mild nonobstructive coronary artery disease, hyperlipidemia, morbid obesity, chronic lower back pain and chronic nicotine dependence smoking one pack of cigarettes daily. He presented to the emergency department on 05/29/22 with a chief complaint of chest pain described as a pressure-like sensation radiating into his left upper extremity. He underwent full evaluation in the emergency department. CBC, CMP, and coags showing no significant abnormalities. Troponin negative at less than 0.012. Chest x-ray revealing bronchial wall thickening correlating with bronchitis otherwise negative for acute cardiopulmonary process. EKG showing sinus bradycardia at 56 bpm with no significant T-wave or ST abnormalities. Right lower extremity Doppler also completed secondary to patient's reports of increased swelling was negative for DVT. Patient admitted under services of consultation to cardiology. Troponins trended all negative at less than 0.0124 draws. Cardiology evaluated patient and of note pt did have a recent cardiac cath 04/2022 revealing nonobstructive coronary artery disease with a 30% stenosis of LAD. Cardiology recommended patient undergo echocardiogram. Echocardiogram completed revealing preserved EF 50-55% with no significant valvular or structural abnormalities. Cardiology with no further r ecommendations at this time stating patient may follow-up outpatient in our office in 1-2 weeks. Medically patient is stable for discharge home, vitals signs stable, patient showing no signs of acute distress. Recommend patient to follow up outpatient with PCP in 1-2 days and cardiology in 1-2 weeks. Physical exam: Patient seen and examined at bedside. Vital signs reviewed and stable. General: Nontoxic, no distress and appears stated age. Obese. Derm: Skin warm and dry, normal coloration for ethnicity. Head: Atraumatic, normocephalic and symmetric. Eyes: EOMs intact, no lid lag, and anicteric sclera Mouth: no lip lesions, mucus membranes moist Cardiovascular: regular rate and rhythm with normal S1S2, no murmur, positive posterior tibial pulses bilaterally, and cap refill < 2 seconds. Lungs: Respirations even, regular, and unlabored on room air. Lungs CTA bilaterally, no rhonchi, no rales, no wheezing, and no accessory muscle usage. Abdominal: soft, nontender to palpation, no guarding, no appreciable organomegaly Ext: ROM intact. No gross muscle atrophy, bilateral lower extremity edema, no contractures Neuro: Speech clear, face symmetrical and CN II-XII grossly intact with no noted focal neuro deficits Psych: Alert and oriented to person, place, time, and situation. Appropriate and pleasant affect. A total of 33 minutes of time were spent preparing this complex discharge summary. Pt was discharged on 05/30/22 at 1:24 PM. Patient Condition at Discharge: Stable Plan - Discharge Summary New Discharge Prescriptions: New Azithromycin [Zithromax] 500 mg PO DAILY@1800 4 Days #4 tab Continue Topiramate [Topamax] 100 mg PO BID HYDROcodone/APAP 7.5-325MG [[place] 7.5-325] 1 tab PO TID Aspirin 81 mg PO DAILY #30 tab Ibuprofen [Motrin] 800 mg PO TID Butalb/APAP/Caff 50-325-40Mg [Fioricet 50-325-40] 1 tab PO DAILY Atorvastatin [Lipitor] 20 mg PO DAILY #30 tab Discharge Medication List Ibuprofen [Motrin] 800 mg PO TID 01/03/22 [History] Butalb/APAP/Caff 50-325-40Mg [Fioricet 50-325-40] 1 tab PO DAILY 04/15/22 [History] HYDROcodone/APAP 7.5-325MG [[place] 7.5-325] 1 tab PO TID 04/15/22 [History] Topiramate [Topamax] 100 mg PO BID 04/15/22 [History] Aspirin 81 mg PO DAILY #30 tab 04/17/22 [Rx] Atorvastatin [Lipitor] 20 mg PO DAILY #30 tab 04/17/22 [Rx] Azithromycin [Zithromax] 500 mg PO DAILY@1800 4 Days #4 tab 05/30/22 [Rx] Follow up Appointment(s)/Referral(s): Hua Jaramillo MD [Primary Care Provider] - 1-2 days Doug Gonsalez DO [STAFF PHYSICIAN] - 1 Week Patient Instructions/Handouts: Chest Pain (DC), How to Stop Smoking (DC), Cigarette Smoking and Your Health (GEN), Acute Bronchitis (GEN), Noncardiac Chest Pain (DC) Activity/Diet/Wound Care/Special Instructions: Activity: As tolerated. Take breaks as needed. Diet: Heart healthy and carb consistent diet. Avoid salts, or foods with hidden salts such as canned or boxed foods and frozen dinners. Extra salt makes your heart work harder and traps the fluid in your body for longer. Special Instructions: Take all of your medications as directed and remember to keep all of your doctor's appointments and follow-up as needed. Thank you for allowing us to participate in your care, it was truly a pleasure having you for our patient!!! Discharge Disposition: HOME SELF-CARE
[2022-05-30 14:01] VITALS: PULSE 56
== END 2022-05-30 14:23 | disposition home or self-care (01) | DRG 313 ==
LOC: EC 11:27 → OBSVTOIN 17:33 → 6NMEDSUR 17:33
PROVIDERS: ADMIT Family Medicine; ATTEND Family Medicine
DX: R07.9 Chest pain, unspecified (principal); Z68.43 Body mass index [BMI] 50.0-59.9, adult; J20.9 Acute bronchitis, unspecified; I25.10 Atherosclerotic heart disease of native coronary artery without angina pectoris; E66.01 Morbid (severe) obesity due to excess calories; E78.00 Pure hypercholesterolemia, unspecified; F17.210 Nicotine dependence, cigarettes, uncomplicated; Z20.822 Contact with and (suspected) exposure to COVID-19; F32.A Depression, unspecified; F41.9 Anxiety disorder, unspecified; G89.29 Other chronic pain; Z79.82 Long term (current) use of aspirin; Z79.899 Other long term (current) drug therapy; Z82.3 Family history of stroke; Z82.49 Family history of ischemic heart disease and other diseases of the circulatory system; Z83.3 Family history of diabetes mellitus; Z87.442 Personal history of urinary calculi
CPT/HCPCS: 36415; 71046; 80048; 80053; 80061; 84484; 85025; 85610; 87635; 93005; 93306; 96361; 96365; 96375; 96376; 99285

== ENCOUNTER 2022-08-16 09:51 | Day surgery (SDC) | payer OTHER ==
[2022-08-14 10:14] VITALS: BMI 54.5
[~2022-08-16 09:51] MED LIST: LACTATED RINGERS 1,000 ML IV SCH; LIDOCAINE 1% (10MG/ML) FOR IV START INTRADERMA PRN
[2022-08-16 10:27] VITALS: TEMP 97.3
[2022-08-16] MEDS ORDERED: PROPOFOL 10 MG/ML 20 ML VIAL IV ONE (10:55)
[2022-08-16] MEDS ORDERED: MIDAZOLAM 2 MG/2 ML VIAL ONE (10:55)
[2022-08-16] MEDS ORDERED: KETAMINE 10 MG/ML 20 ML VIAL ONE (10:55)
[2022-08-16 11:24] VITALS: RESP 20
--- NOTE | 2022-08-16 11:26 | P.PCN ---
Date of Procedure: 08/16/22 Procedure(s) Performed: BRIEF HISTORY: Patient is a 46-year-old pleasant white male scheduled for an elective colonoscopy as a part of screening for colon cancer. PROCEDURE PERFORMED: Colonoscopy with snare polypectomy. PREOPERATIVE DIAGNOSIS: Screening for colon cancer. IV sedation per Anesthesia. PROCEDURE: After informed consent was obtained, the patient, was brought into the endoscopy unit. IV sedation was administered by Anesthesia under continuous monitoring. Digital rectal examination was normal. Initially the Olympus CF-160 flexible video colonoscope was then inserted in the rectum, gradually advanced into the cecum without any difficulty. Careful examination was performed as the scope was gradually being withdrawn. Ileocecal valve and the appendiceal orifice were visualized and appeared normal. Prep was excellent. Mucosa of the cecum, and a 5 limited polyp removed by snare polypectomy. In the transverse colon there was a 5 mm and 1 cm polyp removed by snare polypectomy. In the descending colon there was a 7 mm sessile polyp removed by snare polypectomy. In the sigmoid colon there was a 5 mm polyp removed by snare polypectomy. Scattered sigmoid diverticulosis seen. The rectum appeared normal. Retroflexion was performed in the rectum and no lesions were seen. The patient tolerated the procedure well. IMPRESSION: 5 mm cecal polyp status post polypectomy 5 mm, 1 cm transverse colon polyp status post polypectomy 7 mm descending colon polyp status post polypectomy 5 mm; sigmoid polyp status post polypectomy RECOMMENDATIONS: Findings of this examination were discussed with the patient as well as his family.. He was advised to follow with the biopsy results. If the biopsy results adenoma he can have a repeat colonoscopy in 3 years.
[2022-08-16 11:42] VITALS: BP 128/81; PULSE 74
== END 2022-08-16 12:06 | disposition home or self-care (01) ==
LOC: ORWHC2ENDO 09:51
PROVIDERS: ATTEND Internal Medicine Gastroenterology
DX: Z12.11 Encounter for screening for malignant neoplasm of colon (principal); D12.0 Benign neoplasm of cecum; D12.3 Benign neoplasm of transverse colon; D12.4 Benign neoplasm of descending colon; D12.5 Benign neoplasm of sigmoid colon; K57.30 Diverticulosis of large intestine without perforation or abscess without bleeding
CPT/HCPCS: 88305; 45385; J2250; J2704

== ENCOUNTER → 2023-08-17 | Outpatient (CLI) | payer OTHER ==
--- NOTE | 2023-08-17 09:10 | US ---
EXAMINATION TYPE: US abdomen complete DATE OF EXAM: 08/17/2023 COMPARISON: NONE CLINICAL INDICATION: Male, 47 years old with history of R10.11 RIGHT UPPER QUADRANT PAIN; RUQ pain TECHNIQUE: Multiple sonographic images of the abdomen are obtained. FINDINGS: EXAM MEASUREMENTS: Liver Length: 22 cm Gallbladder Wall: 0.3 cm CBD: 0.4 cm Spleen: 11.3 cm Right Kidney: 10.6x7.2x6.3 cm Left Kidney: 10.6x5.8x6.5 cm RETAIL FIELD SUPERVISOR NOTES: Pancreas: Tail obscured by overlying bowel gas Liver: enlarged, increased echogenicity and attenuation, difficult to penetrate Gallbladder: wnl, as visualized Evidence for sonographic Wyman's sign: No CBD: wnl, as visualized Spleen: wnl, as visualized Right Kidney: wnl, as visualized Left Kidney: wnl, as visualized Upper IVC: wnl Abd Aorta: proximal Aorta wnl as visualized exam very limited by large body habitus IMPRESSION: 1. No acute ultrasound abnormality of the abdomen. There is some limitation discussed above.
== END | disposition home or self-care (01) ==
LOC: RADUSWWP 07:24
PROVIDERS: ATTEND Family Medicine
DX: R10.11 Right upper quadrant pain (principal)
CPT/HCPCS: 76700

== ENCOUNTER 2023-08-20 11:06 | Emergency (ER) | payer OTHER ==
--- NOTE | 2023-08-20 12:18 | XR ---
EXAMINATION TYPE: XR shoulder complete RT DATE OF EXAM: 08/20/2023 COMPARISON: NONE HISTORY: Pain TECHNIQUE: Shoulder examined in 3 projections. FINDINGS: The humeral head articulates with the glenoid. The acromio-clavicular junction is normal. No acute fractures or dislocations are evident. A follow up study can be performed 7-10 days from acute trauma for continued pain. MRI can be perfor med if soft tissue evaluation would be of benefit. IMPRESSION: 1. No acute osseous shoulder abnormality.
[2023-08-20] MEDS ORDERED: KETOROLAC 15 MG/ML 1 ML VIAL IVP STA (12:26)
--- NOTE | 2023-08-20 12:31 | ED ---
General Adult HPI - General Chief complaint: Fall Stated complaint: fall Time Seen by Provider: 08/20/23 11:40 Source: patient, RN notes reviewed, old records reviewed Mode of arrival: wheelchair Limitations: no limitations - History of Present Illness Initial comments: This a 47-year-old male who presents emergency Department who and is morbidly obese and has high blood pressure. Patient states he has been falling out of bed for the last month and a half or so. Patient states this happened multiple times. Patient states he gets abscess on his bed and he believes he is falling asleep and then falls out. This last time he fell he hit both of his knees and has a little bit of hip pain bilaterally particularly in the left buttocks. Patient also complains of hitting. Patient denies any chest pain difficulty breathing. Patient has any neck pain patient denies numbness weakness per patient has a headache. Patient's abdominal pain palpitations nausea vomiting diarrhea. Patient denies any recent fever chills or cough. Patient states she' s being worked up for these falls and he has an appointment with a neurologist - Related Data Home Medications Medication Instructions Recorded Confirmed Ibuprofen [Motrin] 800 mg PO TID 01/03/22 05/09/23 Atorvastatin [Lipitor] 20 mg PO HS 05/09/23 05/09/23 Losartan [Cozaar] 25 mg PO HS 05/09/23 05/09/23 Previous Rx's Medication Instructions Recorded Aspirin 81 mg PO DAILY #30 tab 04/17/22 Albuterol Sulfate [Albuterol 1 puff PO Q4-6H PRN #8.5 gm 05/10/23 Sulfate Hfa] Pantoprazole [Protonix] 40 mg PO DAILY #30 tab 05/10/23 Ketorolac [Toradol] 10 mg PO Q6HR #15 tab 08/20/23 Allergies Allergy/AdvReac Type Severity Reaction Status Date / Time No Known Allergies Allergy Verified 08/20/23 11:40 Review of Systems ROS Statement: Those systems with pertinent positive or pertinent negative responses have been documented in the HPI. ROS Other: All systems not noted in ROS Statement are negative. Past Medical History Past Medical History: Chest Pain / Angina, Hypertension, Osteoarthritis (OA), Pneumonia Additional Past Medical History / Comment(s): morbid obesity, diverticulitis, kidney stone, back pain, frequent falls, recurring left and right chest pain for many years reports has seen a heart doctor in the past reports had small block ages on cardiac cath, reports low bp and low heart rate, SOB with exertion post covid, had covid in early 2021, chronic lower extremity leg swelling, chronic migraines, pleural effusion 2022 History of Any Multi-Drug Resistant Organisms: None Reported Past Surgical History: Heart Catheterization, Orthopedic Surgery Additional Past Surgical History / Comment(s): bernardo knee surgery, EGD and colonoscopies. neck surgery with plates and screws and fusion to c-spine, 3 heart catheterizations last one in 2021 Past Anesthesia/Blood Transfusion Reactions: No Reported Reaction, Previous Problems w/ Anesthesia Additional Past Anesthesia/Blood Transfusion Reaction / Comment(s): reports difficulty waking up Past Psychological History: Anxiety, Depression Smoking Status: Current some day smoker Past Alcohol Use History: Occasional Past Drug Use History: Marijuana - Past Family History Father Family Medical History: Diabetes Mellitus Additional Family Medical History / Comment(s): ETOH abuse. Father is . Mother Family Medical History: Cancer Additional Family Medical History / Comment(s): Mother passed from cancer-pt does not know type. family Family Medical History: Cancer, Coronary Artery Disease (CAD), CVA/TIA General Exam - General Exam Comments Initial Comments: GENERAL: Patient is well-developed and well-nourished. Patient is nontoxic and well- hydrated and is in mild distress. ENT: Neck is soft and supple. No significant lymphadenopathy is noted. Oropharynx is clear. Moist mucous membranes. Neck has full range of motion without eliciting any pain. She has minimal facial tenderness about the nasal bridge EYES: The sclera were anicteric and conjunctiva were pink and moist. Extraocular movements were intact and pupils were equal round and reactive to light. Eyelids were unremarkable. PULMONARY: Unlabored respirations. Good breath sounds bilaterally. No audible rales rhonchi or wheezing was noted. CARDIOVASCULAR: There is a regular rate and rhythm without any murmurs gallops or rubs. ABDOMEN: Soft and nontender with normal bowel sounds. SKIN: Skin is clear with no lesions or rashes and otherwise unremarkable. NEUROLOGIC: Patient is alert and oriented x3. Cranial nerves II through XII are grossly intact. Motor and sensory are also intact. Normal speech, volume and content. Symmetrical smile. MUSCULOSKELETAL: Normal extremities with adequate strength and full range of motion. Patient's knees are tender to palpation there is no area of swelling there is no area of effusion and he does have full range of motion. Patient's left buttocks is tender to palpate there is no bony tenderness LYMPHATICS: No significant lymphadenopathy is noted PSYCHIATRIC: Normal psychiatric evaluation. Limitations: no limitations Course Vital Signs 08/20/23 11:37 Temperature 98 F Pulse Rate 70 Respiratory 24 Rate Blood Pressure 164/100 O2 Sat by Pulse 97 Oximetry Medical Decision Making - Medical Decision Making EKG is interpreted by myself. EKG shows a sinus rhythm at 63 bpm GA interval 106 QRS 125 Q-T intervals 400 QTC is 407. Patient's EKG shows no ST segment elevation or depression. Was pt. sent in by a medical professional or institution (, PA, TITLE DEPARTMENT MANAGER, urgent care, hospital, or half-way...) When possible be specific @ -No Did you speak to anyone other than the patient for history (EMS, parent, family, police, friend...)? What history was obtained from this source @ -No Did you review nursing and triage notes (agree or disagree)? Why? @ -I reviewed and agree with nursing and triage notes Were old charts reviewed (outside hosp., previous admission, EMS record, old EKG, old radiological studies, urgent care reports/EKG's, half-way records)? Report findings @ -Review prior charts from prior lab work on this patient. Differential Diagnosis (chest pain, altered mental status, abdominal pain women, abdominal pain men, vaginal bleeding, weakness, fever, dyspnea, syncope, headache, dizziness, GI bleed, back pain, seizure, CVA, palpatations, mental health, musculoskeletal)? @ -Differential Musculoskeletal Muscular strain, contusion, ligament sprain, fracture, arthritis, septic arthritis, bursitis, cellulitis, muscle spasm, nerve compression, DVT, arterial occlusion, herpes zoster, electrolyte abnormality, tumor.... This is not meant to be in all inclusive list EKG interpreted by me (3pts min.). @ -As above X-rays interpreted by me (1pt min.). @ -X-ray the facial bones x-ray of the pelvis x-ray of bilateral knees shoulder and chest all showed no acute abnormality CT interpreted by me (1pt min.). @ -None done U/S interpreted by me (1pt. min.). @ -None done What testing was considered but not performed or refused? (CT, X-rays, U/S, labs)? Why? @ -None What meds were considered but not given or refused? Why? @ -None Did you discuss the management of the patient with other professionals (professionals i.e. , PA, TITLE DEPARTMENT MANAGER, lab, RT, psych nurse, social work coordinator, cart pusher, teacher, security vehicle patrol officer, field nurse case manager)? Give summary @ -No Was smoking cessation discussed for >3mins.? @ -No Was critical care preformed (if so, how long)? @ -No Were there social determinants of health that impacted care today? How? (Homelessness, low income, unemployed, alcoholism, drug addiction, transportation, low edu. Level, literacy, decrease access to med. care, shelter, rehab)? @ -No Was there de-escalation of care discussed even if they declined (Discuss DNR or withdrawal of care, Hospice)? DNR status @ -No What co-morbidities impacted this encounter? (DM, HTN, Smoking, COPD, CAD, Cancer, CVA, ARF, Chemo, Hep., AIDS, mental health diagnosis, sleep apnea, morbid obesity)? @ -None Was patient admitted / discharged? Hospital course, mention meds given and r oute, prescriptions, significant lab abnormalities, going to OR and other pertinent info. @ -Patient received Toradol emergency department was feeling better. I reviewed the patient's lab work and x-rays with him. Patient states he already has an appointment with a neurologist and is going for a sleep study symptoms so he'll we will likely at this time so he will not fall out of his bed when he sits there is a long period Undiagnosed new problem with uncertain prognosis? @ -No Drug Therapy requiring intensive monitoring for toxicity (Heparin, Nitro, Insulin, Cardizem)? @ -No Were any procedures done? @ -No Diagnosis/symptom? @ -Multiple contusions Acute, or Chronic, or Acute on Chronic? @ -Acute Uncomplicated (without systemic symptoms) or Complicated (systemic symptoms)? @ -Uncomplicated Side effects of treatment? @ -No Exacerbation, Progression, or Severe Exacerbation? @ -No Poses a threat to life or bodily function? How? (Chest pain, [place], [place], pneumonia, PE, COPD, DKA, ARF, appy, cholecystitis, CVA, Diverticulitis, Homicidal, Suicidal, threat to staff... and all critical care pts) @ -No Diagnosis/symptom? @ -Sleep disturbance Acute, or Chronic, or Acute on Chronic? @ -Acute Uncomplicated (without systemic symptoms) or Complicated (systemic symptoms)? @ -default Side effects of treatment? @ -none Exacerbation, Progression, or Severe Exacerbation] @ -no Poses a threat to life or bodily function? @ -no - Lab Data Result diagrams: 08/20/23 13:09 08/20/23 13:09 Lab Results 08/20/23 08/20/23 08/20/23 Range/Units 13:09 13:09 13:09 WBC 7.7 (3.8-10.6) k/uL RBC 5.06 (4.30-5.90) m/uL Hgb 15.3 (13.0-17.5) gm/dL Hct 45.5 (39.0-53.0) % MCV 89.9 (80.0-100.0) fL MCH 30.2 (25.0-35.0) pg MCHC 33.6 (31.0-37.0) g/dL RDW 11.8 (11.5-15.5) % Plt Count 167 (150-450) k/uL MPV 9.7 Neutrophils % 51 % Lymphocytes % 34 % Monocytes % 7 % Eosinophils % 4 % Basophils % 1 % Neutrophils # 4.0 (1.3-7.7) k/uL Lymphocytes # 2.6 (1.0-4.8) k/uL Monocytes # 0.5 (0-1.0) k/uL Eosinophils # 0.3 (0-0.7) k/uL Basophils # 0.1 (0-0.2) k/uL Sodium 140 (137-145) mmol/L Potassium 4.3 (3.5-5.1) mmol/L Chloride 104 (98-107) mmol/L Carbon Dioxide 25 (22-30) mmol/L Anion Gap 11 mmol/L BUN 15 (9-20) mg/dL Creatinine 0.77 (0.66-1.25) mg/dL Est GFR (CKD-EPI)AfAm >90 (>60 ml/min/1.73 sqM) Est GFR (CKD-EPI)NonAf >90 (>60 ml/min/1.73 sqM) Glucose 107 H (74-99) mg/dL Plasma Lactic Acid Everardo 0.9 (0.7-2.0) mmol/L Calcium 8.8 (8.4-10.2) mg/dL Total Bilirubin 0.5 (0.2-1.3) mg/dL AST 37 (17-59) U/L ALT 56 H (4-49) U/L Alkaline Phosphatase 66 (38-126) U/L Troponin I (0.000-0.034) ng/mL Total Protein 6.8 (6.3-8.2) g/dL Albumin 4.1 (3.5-5.0) g/dL 08/20/23 Range/Units 13:09 WBC (3.8-10.6) k/uL RBC (4.30-5.90) m/uL Hgb (13.0-17.5) gm/dL Hct (39.0-53.0) % MCV (80.0-100.0) fL MCH (25.0-35.0) pg MCHC (31.0-37.0) g/dL RDW (11.5-15.5) % Plt Count (150-450) k/uL MPV Neutrophils % % Lymphocytes % % Monocytes % % Eosinophils % % Basophils % % Neutrophils # (1.3-7.7) k/uL Lymphocytes # (1.0-4.8) k/uL Monocytes # (0-1.0) k/uL Eosinophils # (0-0.7) k/uL Basophils # (0-0.2) k/uL Sodium (137-145) mmol/L Potassium (3.5-5.1) mmol/L Chloride (98-107) mmol/L Carbon Dioxide (22-30) mmol/L Anion Gap mmol/L BUN (9-20) mg/dL Creatinine (0.66-1.25) mg/dL Est GFR (CKD-EPI)AfAm (>60 ml/min/1.73 sqM) Est GFR (CKD-EPI)NonAf (>60 ml/min/1.73 sqM) Glucose (74-99) mg/dL Plasma Lactic Acid Everardo (0.7-2.0) mmol/L Calcium (8.4-10.2) mg/dL Total Bilirubin (0.2-1.3) mg/dL AST (17-59) U/L ALT (4-49) U/L Alkaline Phosphatase (38-126) U/L Troponin I <0.012 (0.000-0.034) ng/mL Total Protein (6.3-8.2) g/dL Albumin (3.5-5.0) g/dL Disposition Clinical Impression: Fall, Multiple contusions, Sleep disturbance, unspecified Disposition: HOME SELF-CARE Condition: Good Instructions (If sedation given, give patient instructions): Contusion in Adults (ED) Prescriptions: Ketorolac [Toradol] 10 mg PO Q6HR #15 tab Is patient prescribed a controlled substance at d/c from ED?: No Referrals: Hua Jaramillo MD [Primary Care Provider] - 1-2 days Time of Disposition: 14:57
--- NOTE | 2023-08-20 12:45 | XR ---
EXAMINATION TYPE: XR chest 2V DATE OF EXAM: 08/20/2023 COMPARISON: 05/09/2023 HISTORY: 47-year-old male with pain after fall this a.m. TECHNIQUE: PA and lateral views FINDINGS: Heart normal size. Aorta and pulmonary vasculature within normal limits. Mild interstitial prominence is unchanged and has a chronic appearance. No consolidation or pleural effusion. ACDF hardware. IMPRESSION: Chronic changes. No acute process seen.
[2023-08-20 13:42] LABS: Basophils # (A) 0.1 k/uL (0-0.2); Basophils % (A) 1 %; Eosinophils # (A) 0.3 k/uL (0-0.7); Eosinophils % (A) 4 %; HCT 45.5 % (39.0-53.0); HGB 15.3 gm/dL (13.0-17.5); Lymphocytes # (A) 2.6 k/uL (1.0-4.8); Lymphocytes % (A) 34 %; MCH 30.2 pg (25.0-35.0); MCHC 33.6 g/dL (31.0-37.0); MCV 89.9 fL (80.0-100.0); Mean Platelet Volume 9.7; Monocytes # (A) 0.5 k/uL (0-1.0); Monocytes % (A) 7 %; Neutrophils % (A) 51 %; Platelet Count 167 k/uL (150-450); RBC 5.06 m/uL (4.30-5.90); RDW 11.8 % (11.5-15.5); WBC 7.7 k/uL (3.8-10.6)
[2023-08-20 14:00] LABS: ALT 56 U/L (4-49); AST 37 U/L (17-59); African American GFR (CKD) >90 (>60 ml/min/1.73 sqM); Albumin 4.1 g/dL (3.5-5.0); Alkaline Phosphatase 66 U/L (38-126); Anion Gap 11 mmol/L; Blood Urea Nitrogen 15 mg/dL (9-20); Calcium 8.8 mg/dL (8.4-10.2); Carbon Dioxide 25 mmol/L (22-30); Chloride 104 mmol/L (98-107); Glucose 107 mg/dL (74-99); Non-African American GFR(CKD) >90 (>60 ml/min/1.73 sqM); Potassium 4.3 mmol/L (3.5-5.1); Sodium 140 mmol/L (137-145); Total Bilirubin 0.5 mg/dL (0.2-1.3); Total Protein 6.8 g/dL (6.3-8.2)
--- NOTE | 2023-08-20 14:41 | XR ---
EXAMINATION TYPE: XR facial bones 3 views complete DATE OF EXAM: 08/20/2023 COMPARISON: NONE HISTORY: 47-year-old male pain after fall, trauma TECHNIQUE: 3 views FINDINGS: Leftward nasal septal deviation. The paranasal sinuses appear relatively pneumatized. Orbit s appear symmetrical. Mandible and nasal bone appears intact. IMPRESSION: Leftward nasal septal deviation. Otherwise, no specific radiographic abnormality seen.
--- NOTE | 2023-08-20 14:43 | XR ---
EXAMINATION TYPE: XR pelvis AP view, XR knee complete 3 views bilateral DATE OF EXAM: 08/20/2023 Comparison: None Clinical History: 47-year-old male with pain after Trauma Findings: Pelvis: SI joints appear symmetric and intact as does the pubic symphysis and both hips. The lateral aspect o f the proximal right femur is excluded from view and not adequately assessed. No acute fracture along the visualized portions. Bilateral knees: Mild tricompartmental degenerative spurring, left greater than right. Extensor mechanisms are intact. No knee joint effusions are seen. No acute fracture, subluxation, dislocation. Impression: 1. Pelvis: The lateral aspect of the proximal right femur is excluded from view. No fracture along th e visualized portions. 2. Bilateral knees: Tricompartmental degenerative spurring, left greater than right. No joint effusio n or acute osseous abnormality seen.
[2023-08-20 15:37] VITALS: BP 143/98; PULSE 64; RESP 20; TEMP 98.3
== END 2023-08-20 15:41 | disposition home or self-care (01) ==
LOC: EC 11:06
DX: S80.02XA Contusion of left knee, initial encounter (principal); S80.01XA Contusion of right knee, initial encounter; S70.02XA Contusion of left hip, initial encounter; S00.33XA Contusion of nose, initial encounter; G47.9 Sleep disorder, unspecified; I10 Essential (primary) hypertension; E66.01 Morbid (severe) obesity due to excess calories; F17.200 Nicotine dependence, unspecified, uncomplicated; F12.90 Cannabis use, unspecified, uncomplicated; Z68.43 Body mass index [BMI] 50.0-59.9, adult; Z79.899 Other long term (current) drug therapy; W06.XXXA Fall from bed, initial encounter
CPT/HCPCS: 36415; 93005; 80053; 83605; 84484; 85025; 70150; 73562; 72170; 73030; 71046; 99285; 96374; J1885

== ENCOUNTER 2023-12-09 01:00 | Emergency (ER) | payer OTHER ==
[2023-12-09 01:14] VITALS: TEMP 98.8
[2023-12-09] MEDS: HYDROmorphone 1 MG/ML 1 ML SYRINGE IM STA (01:38)
--- NOTE | 2023-12-09 03:57 | ED ---
Fall HPI - General Chief Complaint: Fall Stated Complaint: Fall Time Seen by Provider: 12/09/23 01:25 Source: patient Mode of arrival: wheelchair - History of Present Illness Initial Comments: 48-year-old male presenting for evaluation post fall. Patient states that he rolled out of bed this evening. He woke up on the floor. He suspects that he hit his head on his bedside table as the right side of his face is sore. He is also complaining of generalized aches and pains throughout the shoulders and hips. Denies blood thinners. No nausea, vomiting, vision or hearing changes, numbness, tingling, weakness. - Related Data Home Medications Medication Instructions Recorded Confirmed Ibuprofen [Motrin] 800 mg PO TID 01/03/22 05/09/23 Atorvastatin [Lipitor] 20 mg PO HS 05/09/23 05/09/23 Losartan [Cozaar] 25 mg PO HS 05/09/23 05/09/23 Previous Rx's Medication Instructions Recorded Aspirin 81 mg PO DAILY #30 tab 04/17/22 Albuterol Sulfate [Albuterol 1 puff PO Q4-6H PRN #8.5 gm 05/10/23 Sulfate Hfa] Pantoprazole [Protonix] 40 mg PO DAILY #30 tab 05/10/23 Ketorolac [Toradol] 10 mg PO Q6HR #15 tab 08/20/23 Allergies Allergy/AdvReac Type Severity Reaction Status Date / Time No Known Allergies Allergy Verified 08/20/23 11:40 Review of Systems ROS Statement: Those systems with pertinent positive or pertinent negative responses have been documented in the HPI. ROS Other: All systems not noted in ROS Statement are negative. Past Medical History Past Medical History: Chest Pain / Angina, Hypertension, Osteoarthritis (OA), Pneumonia Additional Past Medical History / Comment(s): morbid obesity, diverticulitis, kidney stone, back pain, frequent falls, recurring left and right chest pain for many years reports has seen a heart doctor in the past reports had small blockages on cardiac cath, reports low bp and low heart rate, SOB with exertion post covid, had covid in early 2021, chronic lower extremity leg swelling, chronic migraines, pleural effusion 2022 History of Any Multi-Drug Resistant Organisms: None Reported Past Surgical History: Heart Catheterization, Orthopedic Surgery Additional Past Surgical History / Comment(s): bernardo knee surgery, EGD and colonoscopies. neck surgery with plates and screws and fusion to c-spine, 3 heart catheterizations last one in 2021 Past Anesthesia/Blood Transfusion Reactions: No Reported Reaction, Previous Problems w/ Anesthesia Additional Past Anesthesia/Blood Transfusion Reaction / Comment(s): reports difficulty waking up Past Psychological History: Anxiety, Depression Smoking Status: Current some day smoker Past Alcohol Use History: Occasional Past Drug Use History: Marijuana - Past Family History Father Family Medical History: Diabetes Mellitus Additional Family Medical History / Comment(s): ETOH abuse. Father is . Mother Family Medical History: Cancer Additional Family Medical History / Comment(s): Mother passed from cancer-pt does not know type. family Family Medical History: Cancer, Coronary Artery Disease (CAD), CVA/TIA General Exam Limitations: no limitations General appearance: alert, in no apparent distress Head exam: Present: atraumatic, normocephalic Eye exam: Present: normal appearance, PERRL, EOMI Neck exam: Present: normal inspection. Absent: tenderness, meningismus Respiratory exam: Present: normal lung sounds bilaterally. Absent: respiratory distress, wheezes, rales, rhonchi, stridor Cardiovascular Exam: Present: regular rate, normal rhythm, normal heart sounds. Absent: systolic murmur, diastolic murmur, rubs, gallop, clicks Extremities exam: Present: normal inspection, full ROM Back exam: Present: normal inspection Neurological exam: Present: alert, oriented X3 Psychiatric exam: Present: normal affect, normal mood Skin exam: Present: warm, dry Course Vital Signs 12/09/23 12/09/23 01:03 03:32 Temperature 98.8 F Pulse Rate 80 76 Respiratory 20 18 Rate Blood Pressure 125/84 137/88 O2 Sat by Pulse 97 97 Oximetry Medical Decision Making - Medical Decision Making Was pt. sent in by a medical professional or institution (, PA, NEON GLASS BENDER, urgent care, hospital, or longterm...) When possible be specific @ -No Did you speak to anyone other than the patient for history (EMS, parent, family, police, friend...)? What history was obtained from this source @ -No Did you review nursing and triage notes (agree or disagree)? Why? @ -I reviewed and agree with nursing and triage notes Were old charts reviewed (outside hosp., previous admission, EMS record, old EKG, old radiological studies, urgent care reports/EKG's, longterm records)? Report findings @ -No old charts were reviewed Differential Diagnosis (chest pain, altered mental status, abdominal pain women, abdominal pain men, vaginal bleeding, weakness, fever, dyspnea, syncope, headache, dizziness, GI bleed, back pain, seizure, CVA, palpatations, mental health, musculoskeletal)? @ -Differential Musculoskeletal Muscular strain, contusion, ligament sprain, fracture, arthritis, septic arthritis, bursitis, cellulitis, muscle spasm, nerve compression, DVT, arterial occlusion, herpes zoster, electrolyte abnormality, tumor.... This is not meant to be in all inclusive list EKG interpreted by me (3pts min.). @ -As above X-rays interpreted by me (1pt min.). @ -X-ray of the right hip shows no fracture or dislocation CT interpreted by me (1pt min.). @ -None done U/S interpreted by me (1pt. min.). @ -None done What testing was considered but not performed or refused? (CT, X-rays, U/S, labs)? Why? @ -None What meds were considered but not given or refused? Why? @ -None Did you discuss the management of the patient with other professionals (professionals i.e. , PA, [employer] BENDER, lab, RT, psych nurse, social media specialist, content curator, teacher, reserve officer, case briefer)? Give summary @ -No Was smoking cessation discussed for >3mins.? @ -No Was critical care preformed (if so, how long)? @ -No Were there social determinants of health that impacted care today? How? (Homelessness, low income, unemployed, alcoholism, drug addiction, transportation, low edu. Level, literacy, decrease access to med. care, fpc, rehab)? @ -No Was there de-escalation of care discussed even if they declined (Discuss DNR or withdrawal of care, Hospice)? DNR status @ -No What co-morbidities impacted this encounter? (DM, HTN, Smoking, COPD, CAD, Cancer, CVA, ARF, Chemo, Hep., AIDS, mental health diagnosis, sleep apnea, morbid obesity)? @ -None Was patient admitted / discharged? Hospital course, mention meds given and route, prescriptions, significant lab abnormalities, going to OR and other pertinent info. @ -48-year-old male presenting for evaluation after falling out of bed this evening. States he is not sure if he hit his head, however he does have some soreness to the right side of his face which may be due to hitting his head. No blood thinners. He is complaining of generalized aches and pains. No localized tenderness. On physical exam GCS is 15 and no focal neurological deficits are seen. Patient is given pain medication, on reassessment he reports significant improvement in his pain. He does have some residual pain to the right hip. X-rays are obtained which show no fracture or dislocation. On reassessment the patient is sitting up in bed showing no acute signs of distress. He is educated on today's findings and supportive management at home. Discharged home. Follow-up with PCP. Report back to ER with any new or worsening symptoms. Discussed return parameters and answered all questions. Patient conveyed verbal understanding and agreed to the plan. I discussed this case in detail with my attending Dr. Russo Undiagnosed new problem with uncertain prognosis? @ -No Drug Therapy requiring intensive monitoring for toxicity (Heparin, Nitro, Insulin, Cardizem)? @ -No Were any procedures done? @ -No Diagnosis/symptom? @ -Fall, minor head injury Acute, or Chronic, or Acute on Chronic? @ -Acute Uncomplicated (without systemic symptoms) or Complicated (systemic symptoms)? @ -Uncomplicated Side effects of treatment? @ -No Exacerbation, Progression, or Severe Exacerbation? @ -No Poses a threat to life or bodily function? How? (Chest pain, [place], [place], pneumonia, PE, COPD, DKA, ARF, appy, cholecystitis, CVA, Diverticulitis, Homicidal, Suicidal, threat to staff... and all critical care pts) @ -Low likelihood Disposition Clinical Impression: Fall, Minor head injury Disposition: HOME SELF-CARE Condition: Good Instructions (If sedation given, give patient instructions): Head Injury (ED) Additional Instructions: Follow-up with PCP. Report back to ER with any new or worsening symptoms. Is patient prescribed a controlled substance at d/c from ED?: No Referrals: Hua Jaramillo MD [Primary Care Provider] - 1-2 days Time of Disposition: 03:58
[2023-12-09] MEDS: traMADol 50 MG STARTER PACK 3 TAB BTL PO STA (04:04)
[2023-12-09 04:08] VITALS: BP 137/88; PULSE 76; RESP 18
--- NOTE | 2023-12-09 04:58 | XR ---
EXAM: XR Pelvis, 1 or 2 Views CLINICAL HISTORY: fall TECHNIQUE: Frontal and oblique view of the pelvis and right hip. COMPARISON: CT abdomen and pelvis from 01/03/22 FINDINGS: Bones/joints: No fracture or dislocation. Soft tissues: Unremarkable. IMPRESSION: No fracture
== END 2023-12-09 04:07 | disposition home or self-care (01) ==
LOC: EC 01:00
DX: S09.90XA Unspecified injury of head, initial encounter (principal); E66.01 Morbid (severe) obesity due to excess calories; F17.200 Nicotine dependence, unspecified, uncomplicated; Z86.16 Personal history of COVID-19; Z68.43 Body mass index [BMI] 50.0-59.9, adult; W06.XXXA Fall from bed, initial encounter
CPT/HCPCS: 73502; 99284; 96372; J1170

== ENCOUNTER 2024-02-08 10:42 | Day surgery (SDC) | payer OTHER ==
[~2024-02-08 10:42] MED LIST changes: -LACTATED RINGERS 1,000 ML IV SCH; -LIDOCAINE 1% (10MG/ML) FOR IV START INTRADERMA PRN; +SODIUM CHLORIDE 0.9% 1,000 ML IV SCH
[2024-02-08] MEDS: IV FLUID CONTINUATION 1,000 ML IV ONE (11:01)
[2024-02-08 11:10] LABS: Glucose,Whole Blood 129 mg/dL (70-110)
[2024-02-08 11:13] VITALS: RESP 16; TEMP 8.1
[2024-02-08] MEDS: ceFAZolin 3 GM in SODIUM CHLORIDE 0.9% 100 ML IVPB PRN (11:52)
[2024-02-08] MEDS: LIDOCAINE 1% INJ 10MG/ML (20 ML MDV) SQ ONE (11:52)
--- NOTE | 2024-02-08 13:55 | P.PCN ---
Description of Procedure: Procedure: Insertion of Linq loop recorder Indication: Syncope CONSENT:I have discussed the risks, benefits and alternative therapies for the above-mentioned procedure. The patient has indicated understanding and acceptance of the risks and procedures discussed. PROCEDURE: Patient was brought to the catheterization lab in a fasting state. Patient was prepped and draped in the usual fashion. 1% lidocaine was used to anesthetize the area of the left third intercostal space. Using the loop recorder incision device, a small 0.5 cm incision was made in the left 3rd intercostal space. Next the Linq loop recorder was deployed in the 3rd intercostal space subcutaneously using the insertion tool. Thresholds were checked and adequate. Next the incision was closed using Dermabond. Steristrips were placed over the incision and the procedure was completed. The patient tolerated the procedure well. The patient was transported to the post cath holding area in stable condition. Linq loop recorder serial number: [id number]
[2024-02-08 14:13] VITALS: BP 138/72; PULSE 82
== END 2024-02-08 12:35 | disposition home or self-care (01) ==
LOC: CATHEP 10:42
PROVIDERS: ATTEND Internal Medicine
DX: R55 Syncope and collapse (principal); I10 Essential (primary) hypertension; I25.10 Atherosclerotic heart disease of native coronary artery without angina pectoris; E66.01 Morbid (severe) obesity due to excess calories; Z68.43 Body mass index [BMI] 50.0-59.9, adult; E78.5 Hyperlipidemia, unspecified; K21.9 Gastro-esophageal reflux disease without esophagitis; F17.210 Nicotine dependence, cigarettes, uncomplicated; Z82.49 Family history of ischemic heart disease and other diseases of the circulatory system; Z79.899 Other long term (current) drug therapy; Z79.84 Long term (current) use of oral hypoglycemic drugs
CPT/HCPCS: 33285; C1764; J0690; J2001

== ENCOUNTER 2024-02-16 03:30 | Emergency (ER) | payer OTHER ==
[2024-02-16 03:42] VITALS: BP 159/80; PULSE 91; RESP 18; TEMP 98
--- NOTE | 2024-02-16 03:55 | ED ---
General Adult HPI - General Chief complaint: Extremity Problem,Nontraumatic Stated complaint: Rt Foot Pain Time Seen by Provider: 02/16/24 03:33 Source: patient, RN notes reviewed, old records reviewed Mode of arrival: wheelchair Limitations: no limitations - History of Present Illness Initial comments: 48-year-old male presents with suspected foreign body in the right foot. Patient believes he may have stepped on a piece of glass. He was unable to remove the glass and is concerned because he is a diabetic. This occurred just prior to arrival. - Related Data Home Medications Medication Instructions Recorded Confirmed Atorvastatin [Lipitor] 20 mg PO DAILY 05/09/23 02/08/24 Ergocalciferol [Vitamin D2 (1250 1,250 mcg PO WEEKLY 12/17/23 02/06/24 Mcg = 28317 Iu)] Furosemide [Lasix] 40 mg PO DAILY 12/17/23 02/08/24 Losartan Potassium 100 mg PO DAILY 12/17/23 02/08/24 Magnesium 400 mg PO DAILY 12/17/23 02/08/24 Potassium Chloride [Klor-Con M20] 2 tab PO BID 12/17/23 02/08/24 buPROPion HCL [buPROPion HCL Xl] 150 mg PO BID 12/17/23 02/08/24 DULoxetine HCL [Cymbalta] 30 mg PO DAILY 02/06/24 02/08/24 metFORMIN HCL 500 mg PO QAM 02/06/24 02/08/24 Allergies Allergy/AdvReac Type Severity Reaction Status Date / Time No Known Allergies Allergy Verified 02/16/24 03:41 Review of Systems ROS Statement: Those systems with pertinent positive or pertinent negative responses have been documented in the HPI. ROS Other: All systems not noted in ROS Statement are negative. Past Medical History Past Medical History: Chest Pain / Angina, Diabetes Mellitus, Hypertension, Osteoarthritis (OA), Pneumonia, Sleep Apnea/CPAP/BIPAP Additional Past Medical History / Comment(s): morbid obesity, diverticulitis, kidney stone, back pain, frequent falls, recurring left and right chest pain for many years reports has seen a heart doctor in the past reports had small blockages on cardiac cath, hx. of low bp and low heart rate, SOB with exertion post covid - had covid in early 2021, chronic lower extremity leg swelling, chronic migraines, pleural effusion 2023, in process of getting CPAP, type II DM History of Any Multi-Drug Resistant Organisms: None Reported Past Surgical History: Heart Catheterization, Orthopedic Surgery Additional Past Surgical History / Comment(s): bernardo knee surgery, EGD and colonoscopies. neck surgery with plates and screws/fusion to c-spine, 3 heart catheterizations last one in 2021, loop monitor Past Anesthesia/Blood Transfusion Reactions: Previous Problems w/ Anesthesia Additional Past Anesthesia/Blood Transfusion Reaction / Comment(s): reports difficulty waking up Past Psychological History: Anxiety, Depression Smoking Status: Current some day smoker Past Alcohol Use History: None Reported Past Drug Use History: None Reported - Past Family History Father Family Medical History: Diabetes Mellitus Additional Family Medical History / Comment(s): ETOH abuse. Father is . Mother Family Medical History: Cancer Additional Family Medical History / Comment(s): Mother passed from cancer-pt does not know type. family Family Medical History: Cancer, Coronary Artery Disease (CAD), CVA/TIA General Exam Limitations: no limitations General appearance: alert, in no apparent distress Head exam: Present: atraumatic, normocephalic Eye exam: Present: normal appearance ENT exam: Present: normal exam Neck exam: Present: normal inspection Respiratory exam: Absent: respiratory distress Cardiovascular Exam: Present: regular rate, normal rhythm GI/Abdominal exam: Present: soft. Absent: distended, tenderness Extremities exam: Present: other (Superficial laceration to the right heel with retained glass) Course Vital Signs 02/16/24 03:37 Temperature 98 F Pulse Rate 91 Respiratory 18 Rate Blood Pressure 159/80 O2 Sat by Pulse 96 Oximetry Procedures - Forgein Body Removal Soft Tissue Consent Obtained: verbal consent Site: foot Foreign Body Suspected: Wood Foreign Body Removed: yes Foreign Body Removal Technique: Forceps Patient Tolerated Procedure: well Medical Decision Making - Medical Decision Making Was pt. sent in by a medical professional or institution (, PA, [employer]ING [employer] FISCAL CLERK, urgent care, hospital, or [facility]...) When possible be specific @ -No Did you speak to anyone other than the patient for history (EMS, parent, family, police, friend...)? What history was obtained from this source @ -No Did you review nursing and triage notes (agree or disagree)? Why? @ -I reviewed and agree with nursing and triage notes Were old charts reviewed (outside hosp., previous admission, EMS record, old EK G, old radiological studies, urgent care reports/EKG's, [facility] records)? Report findings @ -No old charts were reviewed Differential Diagnosis foreign body in the right foot EKG interpreted by me (3pts min.). @ -As above X-rays interpreted by me (1pt min.). @ -None done CT interpreted by me (1pt min.). @ -None done U/S interpreted by me (1pt. min.). @ -None done What testing was considered but not performed or refused? (CT, X-rays, U/S, labs)? Why? @ -None What meds were considered but not given or refused? Why? @ -None Did you discuss the management of the patient with other professionals (professionals i.e. , PA, PURCHASING AND FISCAL CLERK, lab, RT, psych nurse, psychologist social, bander, teacher, peace officer, hospice case manager)? Give summary @ -No Was smoking cessation discussed for >3mins.? @ -No Was critical care preformed (if so, how long)? @ -No Were there social determinants of health that impacted care today? How? (Homelessness, low income, unemployed, alcoholism, drug addiction, transp ortation, low edu. Level, literacy, decrease access to med. care, fpc, rehab)? @ -No Was there de-escalation of care discussed even if they declined (Discuss DNR or withdrawal of care, Hospice)? DNR status @ -No What co-morbidities impacted this encounter? (DM, HTN, Smoking, COPD, CAD, Cancer, CVA, ARF, Chemo, Hep., AIDS, mental health diagnosis, sleep apnea, morbid obesity)? @ -None Was patient admitted / discharged? Hospital course, mention meds given and route, prescriptions, significant lab abnormalities, going to OR and other pertinent info. @ --year-old male with glass foreign body in the right heel49. This is removed with forceps, the area is cleansed. Tetanus is updated. Undiagnosed new problem with uncertain prognosis? @ -No Drug Therapy requiring intensive monitoring for toxicity (Heparin, Nitro, Insulin, Cardizem)? @ -No Were any procedures done? @Yes, foreign body removal Diagnosis/symptom? @glass in the right foot Acute, or Chronic, or Acute on Chronic? @ -Acute Uncomplicated (without systemic symptoms) or Complicated (systemic symptoms)? @ -Default Side effects of treatment? @ -No Exacerbation, Progression, or Severe Exacerbation? @ -No Poses a threat to life or bodily function? How? (Chest pain, [place], [place], pneumonia, PE, COPD, DKA, ARF, appy, cholecystitis, CVA, Diverticulitis, Homicidal, Suicidal, threat to staff... and all critical care pts) @ -No Disposition Clinical Impression: Glass foreign body in skin Disposition: HOME SELF-CARE Condition: Good Instructions (If sedation given, give patient instructions): Puncture Wound (DC), Soft Tissue Foreign Body (ED) Is patient prescribed a controlled substance at d/c from ED?: No Referrals: Hua Jaramillo MD [Primary Care Provider] - 1-2 days Time of Disposition: 03:54
[2024-02-16] MEDS: DIPH,PERTUS(ACELL)TETVAC-LF 0.5 ML VIAL IM ONE (03:57)
== END 2024-02-16 04:55 | disposition home or self-care (01) ==
LOC: EC 03:30
DX: S91.311A Laceration without foreign body, right foot, initial encounter (principal); F17.200 Nicotine dependence, unspecified, uncomplicated; Z23 Encounter for immunization; W25.XXXA Contact with sharp glass, initial encounter
CPT/HCPCS: 28190; 90471; 90715; 99283